=== PATIENT | male | born 1940 | race Caucasian/White ===

== ENCOUNTER 2018-06-03 04:41 | Inpatient (IN) | payer MEDICARE, OTHER ==
--- NOTE | 2018-06-03 05:02 | ED ---
SOB HPI - General Chief Complaint: Shortness of Breath Stated Complaint: SOB Time Seen by Provider: 06/03/18 04:50 Source: patient Mode of arrival: wheelchair Limitations: no limitations - History of Present Illness Initial Comments: This patient is a 78-year-old man who presents to be evaluated for shortness of breath and cough. The patient states that the symptoms started on Thursday, with some mild shortness of breath and nonproductive cough. The patient states that he was sent home from work that day because he was having hard time catching his breath. The patient states that over the past couple of days symptoms have been getting worse resulting in him coming in now. Patient denies any associated fever or chills, chest pain, palpitations, diaphoresis. The patient notes that the breathing seems to be worse when he is lying flat. The cough is now productive of some whitish sputum. Patient denies increase in leg swelling , he does have some swelling at the baseline. Patient denies change in urination. MD Complaint: shortness of breath, cough Onset/Timin -: days(s) Severity: severe Consistency: constant Improves With: oxygen, upright position Worsens With: lying flat Associated Symptoms: denies other symptoms - Related Data Home Oxygen Therapy: No Home Medications Medication Instructions Recorded Confirmed ALPRAZolam [Xanax] 0.25 mg PO HS 05/05/16 06/03/18 Atorvastatin [Lipitor] 10 mg PO HS 05/05/16 06/03/18 Finasteride [Proscar] 5 mg PO DAILY 05/05/16 06/03/18 Furosemide [Lasix] 40 mg PO DAILY 05/05/16 06/03/18 Insulin Glargine [Lantus] 30 unit SQ HS 05/05/16 06/03/18 Insuln Asp Prt/Insulin Aspart 50 unit SQ BID 05/05/16 06/03/18 [NovoLOG MIX 70-30 VIAL] Potassium Chloride [K-Tab ER] 10 meq PO DAILY 05/05/16 06/03/18 Sertraline [Zoloft] 100 mg PO HS PRN 05/05/16 06/03/18 cloNIDine HCL [Catapres] 0.1 mg PO BID 05/05/16 06/03/18 glyBURIDE/METFORMIN HCL 2 tab PO BID 06/06/16 07/05/18 [Glucovance 5-500 mg Tablet] Apixaban [Eliquis] 5 mg PO BID 06/03/18 06/03/18 Aspirin [Adult Low Dose Aspirin EC] 162 mg PO DAILY 06/03/18 06/03/18 Carvedilol 25 mg PO BID 06/03/18 06/03/18 DULoxetine HCL [Cymbalta] 30 mg PO DAILY 06/03/18 06/03/18 Isosorbide Mononitrate ER [Imdur] 30 mg PO DAILY 06/03/18 06/03/18 Loratadine 10 mg PO DAILY PRN 06/03/18 06/03/18 amLODIPine BESYLATE/BENAZEPRIL 1 cap PO BID 06/03/18 06/03/18 [Lotrel 5-20 mg Capsule] Allergies Allergy/AdvReac Type Severity Reaction Status Date / Time No Known Allergies Allergy Verified 06/03/18 04:46 Review of Systems ROS Statement: Those systems with pertinent positive or pertinent negative responses have been documented in the HPI. ROS Other: All systems not noted in ROS Statement are negative. Constitutional: Denies: fever, chills Respiratory: Reports: cough, dyspnea. Denies: hemoptysis Cardiovascular: Reports: orthopnea, edema (At baseline). Denies: chest pain, palpitations, syncope Gastrointestinal: Denies: abdominal pain, vomiting, diarrhea, melena, hematochezia Genitourinary: Denies: dysuria Musculoskeletal: Denies: back pain Skin: Denies: rash Neurological: Denies: headache, weakness, numbness Past Medical History Past Medical History: Diabetes Mellitus, Hyperlipidemia, Hypertension Additional Past Medical History / Comment(s): edema, kidney stones, wound lt calf History of Any Multi-Drug Resistant Organisms: None Reported Past Surgical History: Ear Surgery, Orthopedic Surgery Additional Past Surgical History / Comment(s): bilat tubes in his ears Past Anesthesia/Blood Transfusion Reactions: No Reported Reaction Past Psychological History: Anxiety Smoking Status: Never smoker Past Alcohol Use History: None Reported Past Drug Use History: None Reported - Past Family History Father Family Medical History: No Reported History Mother Family Medical History: No Reported History Additional Family Medical History / Comment(s): Mother was healthy and lived to be 87yrs old. General Exam Limitations: no limitations General appearance: alert, in distress, obese Head exam: Present: atraumatic, normocephalic Eye exam: Present: normal appearance Neck exam: Present: normal inspection Respiratory exam: Present: respiratory distress (Mild tachypnea), rales ( Bilateral bases). Absent: wheezes, rhonchi, stridor Cardiovascular Exam: Present: regular rate, normal rhythm, gallop. Absent: systolic murmur, diastolic murmur, rubs GI/Abdominal exam: Present: soft. Absent: distended, tenderness, guarding, rebound, rigid, mass Extremities exam: Present: normal capillary refill, pedal edema, other (There is pitting edema bilateral lower extremities, left greater than right. Patient states this is at his baseline. Chronic venous stasis changes.). Absent: calf tenderness Back exam: Present: normal inspection Neurological exam: Present: alert Skin exam: Present: warm, dry, intact, normal color, other (Venous stasis changes). Absent: rash Course Vital Signs 06/03/18 06/03/18 06/03/18 04:42 05:20 05:46 Temperature 98.4 F Pulse Rate 97 90 Respiratory 28 H 24 22 Rate Blood Pressure 219/97 184/84 O2 Sat by Pulse 93 L 97 Oximetry 06/03/18 06/03/18 06:33 07:36 Temperature Pulse Rate 90 91 Respiratory 24 24 Rate Blood Pressure 169/80 171/84 O2 Sat by Pulse 97 95 Oximetry Medical Decision Making - Lab Data Result diagrams: 06/03/18 05:12 06/03/18 05:12 Lab Results 06/03/18 06/03/18 06/03/18 Range/Units 05:12 05:12 05:12 WBC 11.2 H (3.8-10.6) k/uL RBC 4.48 (4.30-5.90) m/uL Hgb 13.0 (13.0-17.5) gm/dL Hct 39.8 (39.0-53.0) % MCV 88.9 (80.0-100.0) fL MCH 28.9 (25.0-35.0) pg MCHC 32.6 (31.0-37.0) g/dL RDW 16.4 H (11.5-15.5) % Plt Count 195 (150-450) k/uL Neutrophils % 82 % Lymphocytes % 6 % Monocytes % 7 % Eosinophils % 2 % Basophils % 1 % Neutrophils # 9.2 H (1.3-7.7) k/uL Lymphocytes # 0.7 L (1.0-4.8) k/uL Monocytes # 0.8 (0-1.0) k/uL Eosinophils # 0.3 (0-0.7) k/uL Basophils # 0.1 (0-0.2) k/uL Anisocytosis Slight PT 10.6 (9.0-12.0) sec INR 1.1 (<1.2) APTT 27.0 (22.0-30.0) sec D-Dimer 2.59 H (<0.60) mg/L FEU Sodium (137-145) mmol/L Potassium (3.5-5.1) mmol/L Chloride (98-107) mmol/L Carbon Dioxide (22-30) mmol/L Anion Gap mmol/L BUN (9-20) mg/dL Creatinine (0.66-1.25) mg/dL Est GFR (CKD-EPI)AfAm (>60 ml/min/1.73 sqM) Est GFR (CKD-EPI)NonAf (>60 ml/min/1.73 sqM) Glucose (74-99) mg/dL Calcium (8.4-10.2) mg/dL Magnesium (1.6-2.3) mg/dL Total Bilirubin (0.2-1.3) mg/dL AST (17-59) U/L ALT (21-72) U/L Alkaline Phosphatase (38-126) U/L Total Creatine Kinase 98 (55-170) U/L CK-MB (CK-2) 2.6 H* (0.0-2.4) ng/mL CK-MB (CK-2) Rel Index 2.7 Troponin I <0.012 (0.000-0.034) ng/mL NT-Pro-B Natriuret Pep pg/mL Total Protein (6.3-8.2) g/dL Albumin (3.5-5.0) g/dL 06/03/18 06/03/18 Range/Units 05:12 05:12 WBC (3.8-10.6) k/uL RBC (4.30-5.90) m/uL Hgb (13.0-17.5) gm/dL Hct (39.0-53.0) % MCV (80.0-100.0) fL MCH (25.0-35.0) pg MCHC (31.0-37.0) g/dL RDW (11.5-15.5) % Plt Count (150-450) k/uL Neutrophils % % Lymphocytes % % Monocytes % % Eosinophils % % Basophils % % Neutrophils # (1.3-7.7) k/uL Lymphocytes # (1.0-4.8) k/uL Monocytes # (0-1.0) k/uL Eosinophils # (0-0.7) k/uL Basophils # (0-0.2) k/uL Anisocytosis PT (9.0-12.0) sec INR (<1.2) APTT (22.0-30.0) sec D-Dimer (<0.60) mg/L FEU Sodium 142 (137-145) mmol/L Potassium 3.9 (3.5-5.1) mmol/L Chloride 102 (98-107) mmol/L Carbon Dioxide 30 (22-30) mmol/L Anion Gap 10 mmol/L BUN 26 H (9-20) mg/dL Creatinine 0.70 (0.66-1.25) mg/dL Est GFR (CKD-EPI)AfAm >90 (>60 ml/min/1.73 sqM) Est GFR (CKD-EPI)NonAf >90 (>60 ml/min/1.73 sqM) Glucose 196 H (74-99) mg/dL Calcium 8.6 (8.4-10.2) mg/dL Magnesium 1.7 (1.6-2.3) mg/dL Total Bilirubin 0.6 (0.2-1.3) mg/dL AST 20 (17-59) U/L ALT 31 (21-72) U/L Alkaline Phosphatase 97 (38-126) U/L Total Creatine Kinase (55-170) U/L CK-MB (CK-2) (0.0-2.4) ng/mL CK-MB (CK-2) Rel Index Troponin I (0.000-0.034) ng/mL NT-Pro-B Natriuret Pep 635 pg/mL Total Protein 6.4 (6.3-8.2) g/dL Albumin 3.4 L (3.5-5.0) g/dL - EKG Data -: EKG Interpreted by Me EKG shows normal: sinus rhythm, axis (Normal), intervals (Normal), QRS complexes (Normal), ST-T waves (Normal) Rate: normal (Rate 89 bpm) Interpretation: normal EKG Critical Care Time Critical Care Time: Yes (30 minutes) Disposition Clinical Impression: Dyspnea, Congestive heart failure, Elevated d-dimer Disposition: ADMITTED IP TO THIS [facility] Condition: Fair Is patient prescribed a controlled substance at d/c from ED?: No
[2018-06-03 05:26] LABS: Anisocytosis Slight; Basophils # (A) 0.1 k/uL (0-0.2); Basophils % (A) 1 %; Eosinophils # (A) 0.3 k/uL (0-0.7); Eosinophils % (A) 2 %; HCT 39.8 % (39.0-53.0); Lymphocytes # (A) 0.7 k/uL (1.0-4.8); Lymphocytes % (A) 6 %; MCH 28.9 pg (25.0-35.0); MCHC 32.6 g/dL (31.0-37.0); MCV 88.9 fL (80.0-100.0); Monocytes # (A) 0.8 k/uL (0-1.0); Monocytes % (A) 7 %; Neutrophils # (A) 9.2 k/uL (1.3-7.7); Neutrophils % (A) 82 %; Platelet Count 195 k/uL (150-450); RBC 4.48 m/uL (4.30-5.90); RDW 16.4 % (11.5-15.5); WBC 11.2 k/uL (3.8-10.6)
[2018-06-03 05:33] LABS: ALT 31 U/L (21-72); AST 20 U/L (17-59); Albumin 3.4 g/dL (3.5-5.0); Alkaline Phosphatase 97 U/L (38-126); Anion Gap 10 mmol/L; Blood Urea Nitrogen 26 mg/dL (9-20); Calcium 8.6 mg/dL (8.4-10.2); Carbon Dioxide 30 mmol/L (22-30); Chloride 102 mmol/L (98-107); Glucose 196 mg/dL (74-99); Magnesium 1.7 mg/dL (1.6-2.3); Potassium 3.9 mmol/L (3.5-5.1); Sodium 142 mmol/L (137-145); Total Bilirubin 0.6 mg/dL (0.2-1.3); Total Protein 6.4 g/dL (6.3-8.2)
[2018-06-03 05:44] LABS: Creatine Kinase 98 U/L (55-170)
[2018-06-03 05:46] LABS: INR 1.1 (<1.2); Prothrombin Time 10.6 sec (9.0-12.0)
[2018-06-03 05:49] LABS: D-Dimer 2.59 mg/L FEU (<0.60)
[2018-06-03 05:57] LABS: Troponin I <0.012 ng/mL (0.000-0.034)
--- NOTE | 2018-06-03 05:58 | XR ---
EXAMINATION TYPE: XR chest 1V portable DATE OF EXAM: 06/03/2018 COMPARISON: 05/05/2016 HISTORY: Weakness and dyspnea TECHNIQUE: Single frontal view of the chest is obtained. FINDINGS: Heart is enlarged. There is pulmonary vascular congestion. There is poor inspiration and e levated right diaphragm. There are chest leads. IMPRESSION: Congestive heart failure. Chronic elevated right diaphragm. Heart failure. New compared to old exam.
[2018-06-03 06:04] LABS: Creatine Kinase MB 2.6 ng/mL (0.0-2.4)
[2018-06-03] MEDS ORDERED: FUROSEMIDE 10 MG/ML 4 ML VIAL IV STA (06:11)
[2018-06-03] MEDS ORDERED: NITROGLYCERIN OINT 1 INCH/GM PACKET TOPICAL STA (06:11)
[2018-06-03] MEDS ORDERED: NITROGLYCERIN SL TABS 0.4 MG TAB SUBLINGUAL STA (06:11)
[2018-06-03] MEDS ORDERED: ENOXAPARIN 150 MG/ML SYRINGE SQ STA (07:13)
[2018-06-03] MEDS ORDERED: LORATADINE 10 MG TAB PO PRN (09:26)
[2018-06-03] MEDS ORDERED: cloNIDine HCL 0.1 MG TAB PO SCH (09:30)
--- NOTE | 2018-06-03 10:30 | ECHOF ---
Referral Reason:CHF MEASUREMENTS -------- HEIGHT: 182.9 cm WEIGHT: 147.4 kg BP: IVSd: 1.8 cm (0.6 - 1.1) LVIDd: 3.5 cm (3.9 - 5.3) LVPWd: 1.8 cm (0.6 - 1.1) IVSs: 2.2 cm LVIDs: 2.2 cm LVPWs: 1.6 cm LAESV Index (A-L): 41.36 ml/m Ao Diam: 3.8 cm (2.0 - 3.7) AV Cusp: 2.6 cm (1.5 - 2.6) LA Diam: 5.2 cm (2.7 - 3.8) MV EXCURSION: 10.716 mm (> 18.000) MV EF SLOPE: 39 mm/s (70 - 150) EPSS: 0.7 cm MV E Santiago: 0.85 m/s MV DecT: 155 ms MV A Santiago: 1.10 m/s MV E/A Ratio: 0.78 RAP: 5.00 mmHg RVSP: 18.11 mmHg FINDINGS -------- Sinus rhythm. This was a technically difficult study with suboptimal views. There is severe concentric left ventricular hypertrophy. Overall left ventricular systolic function is low-normal with, an EF between 50 - 55 %. The right ventricle is normal in size and function. LA is moderately dilated 34-39 ml/m2 The right atrium is normal in size. Lumason used The aortic valve is trileaflet and appears structurally normal. The mitral valve leaflets are mildly thickened. Mild mitral annular calcification present. Mild m itral regurgitation is present. Mild tricuspid regurgitation present. The right ventricular systolic pressure, as measured by Doppl er, is 18.11mmHg. Pulmonic valve appears structurally normal. The aortic root, ascending aorta and aortic arch are normal. The pericardium is normal. CONCLUSIONS -------- 1. Sinus rhythm. 2. This was a technically difficult study with suboptimal views. 3. There is severe concentric left ventricular hypertrophy. 4. Overall left ventricular systolic function is low-normal with, an EF between 50 - 55 %. 5. The right ventricle is normal in size and function. 6. LA is moderately dilated 34-39 ml/m2 7. The right atrium is normal in size. 8. Lumason used 9. The aortic valve is trileaflet and appears structurally normal. 10. The mitral valve leaflets are mildly thickened. 11. Mild mitral annular calcification present. 12. Mild mitral regurgitation is present. 13. Mild tricuspid regurgitation present. 14. The right ventricular systolic pressure, as measured by Doppler, is 18.11mmHg. 15. Pulmonic valve appears structurally normal. 16. The aortic root, ascending aorta and aortic arch are normal. 17. The pericardium is normal. SELF PAY SPECIALIST: Ruba Murrell RDCS
--- NOTE | 2018-06-03 11:05 | CONS ---
SUDHEER Sumner is a 78-year-old gentleman with history of right-sided heart failure, diabetes, hypertension, and atrial fibrillation, who was admitted to hospital with shortness of breath and worsening leg edema. His leg edema is mild to moderate and has been getting gradually worse. He also complains of intermittent episodes of shortness of breath. He also has anxiety attacks. At the time of my evaluation this morning patient appears comfortable at rest. He has chronic right-sided leg edema and shortness of breath has improved. The patient had been treated with intravenous Lasix with improvement in his symptoms. First set of troponin is negative. BNP is 635. PAST MEDICAL HISTORY: Significant for atrial fibrillation, hypertension, diabetes. MEDICATIONS: Medications include Imdur 30 q. daily, aspirin, Zoloft, insulin, Lipitor 10 q. daily, Catapres 0.1 b.i.d., Lotrel, carvedilol, Glucovance, K-Dur, Lasix, Proscar, Xanax, Cymbalta, and Eliquis. ALLERGIES: There are no known drug allergies. FAMILY HISTORY: Negative for premature coronary artery disease. SOCIAL HISTORY: Negative for current smoking, EtOH abuse, or drug abuse. REVIEW OF SYSTEMS: HEENT is unremarkable. CARDIAC: As described above. RESPIRATORY: As described above. GI: Negative. GENITOURINARY: Negative. ALLERGY/IMMUNOLOGY: Negative. SKIN: Negative. MUSCULOSKELETAL: Significant for arthritis. PSYCHOSOCIAL: Negative. ENDOCRINE: Negative. HEMATOLOGICAL: Negative. DERM: Negative. CONSTITUTIONAL: Negative. ONCOLOGICAL: Negative. Rest of the system review is not relevant. PHYSICAL EXAMINATION: On exam, patient is comfortable at rest. Heart rate is 90 beats per minute. Blood pressure is 171/84. Respiratory rate is 18. Chest exam reveals diminished air entry at the bases. Heart exam reveals first and second heart sounds. No gallop. Abdomen is soft. Examination of the extremities reveals bilateral pitting edema and chronic changes of hyperpigmentation. EKG shows normal sinus rhythm. ASSESSMENT: 1. Acute exacerbation of chronic congestive heart failure, probably diastolic. 2. Uncontrolled hypertension. 3. History of atrial fibrillation. 4. Diabetes. PLAN: I will continue the IV Lasix. Obtain a 2D echo. Increase the dose of Catapres to 0.2 t.i.d. Continue the Norvasc, Coreg, Zestril that he is currently on. MMODL / IJN: [id number] /
[2018-06-03] MEDS: CARVEDILOL 12.5 MG TAB PO SCH ×2 (11:13→18:00)
[2018-06-03] MEDS: glipiZIDE 5 MG TAB PO SCH ×2 (11:13→18:00)
[2018-06-03] MEDS: amLODIPine 5 MG TAB PO SCH ×2 (11:13→21:40)
[2018-06-03] MEDS: ASPIRIN 81 MG PO SCH (11:14)
[2018-06-03] MEDS: POTASSIUM CHLORIDE ER 10 MEQ TAB.ER.PRT PO SCH (11:19)
[2018-06-03] MEDS: ISOSORBIDE MONONITRATE ER 30 MG TAB.ER.24H PO SCH (11:20)
[2018-06-03] MEDS: FINASTERIDE 5 MG TAB PO SCH (11:20)
[2018-06-03] MEDS: APIXABAN 5 MG TAB PO SCH ×2 (11:20→21:40)
[2018-06-03] MEDS: LISINOPRIL 20 MG TAB PO SCH ×2 (11:20→21:40)
[2018-06-03] MEDS: DULoxetine HCL 30 MG CAPSULE.DR PO SCH (11:20)
[2018-06-03] MEDS: NYSTATIN 100,000 UNIT/GM OINT 30 GM TUBE TOPICAL SCH ×2 (11:28→21:41)
[2018-06-03] MEDS: TRIAMCINOLONE ACET 0.1% OINTMENT 15 GM TUBE TOPICAL SCH ×2 (11:28→21:37)
[2018-06-03] MEDS: INSULN ASP PRT/INSULIN ASPART 100 UNIT/ML 10 ML VIAL SQ SCH ×2 (11:29→21:51)
[2018-06-03 11:46] LABS: Glucose,Whole Blood 136 mg/dL (75-99)
[2018-06-03 12:09] LABS: Creatine Kinase MB 2.2 ng/mL (0.0-2.4); Troponin I <0.012 ng/mL (0.000-0.034)
--- NOTE | 2018-06-03 12:33 | P.HPIM ---
History of Present Illness H&P Date: 06/03/18 Chief Complaint: Difficulty breathing, edema, cough This is a 78-year-old male patient of Dr. Colon with past medical history of chronic heart failure, diabetes mellitus type 2, paroxysmal atrial fibrillation, TIA, hypertension, hyperlipidemia, benign prostatic hypertrophy, lower extremity edema, history of venous stasis ulcer left calf. Patient's and daughter are at the bedside and give most of the history. 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 His states that he got there and he was sweating profusely and shaking and was somewhat incoherent. A couple hours later she called their daughter as he was still not feeling well and his blood sugar was 62 but by this time he was speaking in full sentences. They did call 911 but the patient did not want any treatment. His lower extremity edema was a little bit worse. He complains of cough, sore throat, rodas sputum production. No fever or chills. He denies any pain with breathing. No choking on his food. He does state is unable to lay flat. He has had increased panic attacks over the last couple days. At 3 in the morning he woke up his that he couldn't breathe at that time he did want to come into the hospital for evaluation. Patient is also stating that he is hearing voices and thought it was related to eliquis which he started in February for atrial fibrillation. Dr. 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 Patient came in to [facility] emergency center for evaluation. His blood pressure was 219/97, afebrile, respiratory rate 28. White count was 11.2, hemoglobin 13.0. BUN 26 and creatinine 0.7. Blood sugar was 196. ProBNP 635. D-dimer was 2.59 and patient went for CAT scan but he was unable to lay flat for this. Initial troponin 0.012. Chest x-ray shows congestive heart failure. Chronic elevated right diaphragm. This is new compared to old exam. EKG was in normal sinus rhythm with no acute ST changes. Patient was started on IV Lasix 40 mg, Nitro-Bid nitro sublingual, Lovenox and admitted to the selective care unit. Cardiology consult requested and serial troponins. VQ scan was ordered. Echocardiogram reveals severe concentric left ventricular hypertrophy, EF 50-55% , LA moderately dilated 34-39, mild mitral regurgitation, mild tricuspid regurgitation. Review of Systems All systems: negative Constitutional: Reports fatigue, Reports lethargy, Reports weakness, Denies chills, Denies fever Eyes: denies blurred vision, denies pain Ears, nose, mouth and throat: Reports sore throat, Denies dysphagia, Denies hoarseness Cardiovascular: Reports decreased exercise tolerance, Reports dyspnea on exertion, Reports leg edema, Reports orthopnea, Reports shortness of breath, Denies chest pain Respiratory: Reports cough, Reports cough with sputum, Reports dyspnea, Denies excessive sputum, Denies hemoptysis Gastrointestinal: Denies abdominal pain, Denies diarrhea, Denies nausea, Denies vomiting Genitourinary: Denies dysuria, Denies urinary retention Musculoskeletal: Denies myalgias Integumentary: Reports color changes, Reports darkening of skin, Denies pruritus , Denies rash Neurological: Reports change in mentation, Reports confusion, Denies numbness, Denies weakness Psychiatric: Denies anxiety, Denies depression Endocrine: Reports fatigue, Denies weight change Past Medical History Past Medical History: Atrial Fibrillation, Heart Failure, CVA/TIA, Diabetes Mellitus, Hyperlipidemia, Hypertension, Prostate Disorder, Renal Disease Additional Past Medical History / Comment(s): IDDM type II, chronic CHF, bilateral lower leg edema, past medical record indicates COPD but pt/daughter deny, past venous stasis ulcer L calf (treated in [facility]), occasional neuropathy bilateral feet, 2016 TIA, nephrolithiasis with surgery, BPH, Past R hand finger fractures. History of Any Multi-Drug Resistant Organisms: None Reported Past Surgical History: Ear Surgery, Orthopedic Surgery, Tonsillectomy Additional Past Surgical History / Comment(s): Lithotripsy, R hand/finger surgery for fractures, L shoulder separation with surgical repair, cleft palate surgery, bilat tubes in his ears Past Anesthesia/Blood Transfusion Reactions: No Reported Reaction Smoking Status: Never smoker - Past Family History Father Family Medical History: Myocardial Infarction ([place]) Additional Family Medical History / Comment(s): Father was a heavy smoker. He of a [place] at the age of 42yrs. Mother Family Medical History: No Reported History Additional Family Medical History / Comment(s): Mother was healthy and lived to be 87yrs old. Medications and Allergies Home Medications Medication Instructions Recorded Confirmed Type ALPRAZolam [Xanax] 0.25 mg PO HS 05/05/16 06/03/18 History Atorvastatin [Lipitor] 10 mg PO HS 05/05/16 06/03/18 History Finasteride [Proscar] 5 mg PO DAILY 05/05/16 06/03/18 History Furosemide [Lasix] 40 mg PO DAILY 05/05/16 06/03/18 History Insulin Glargine [Lantus] 30 unit SQ HS 05/05/16 06/03/18 History Insuln Asp Prt/Insulin Aspart 50 unit SQ BID 05/05/16 06/03/18 History [NovoLOG MIX 70-30 VIAL] Potassium Chloride [K-Tab ER] 10 meq PO DAILY 05/05/16 06/03/18 History Sertraline [Zoloft] 100 mg PO HS PRN 05/05/16 06/03/18 History cloNIDine HCL [Catapres] 0.1 mg PO BID 05/05/16 06/03/18 History glyBURIDE/METFORMIN HCL 2 tab PO BID 05/05/16 06/03/18 History [Glucovance 5-500 mg Tablet] Apixaban [Eliquis] 5 mg PO BID 06/03/18 06/03/18 History Aspirin [Adult Low Dose Aspirin EC] 162 mg PO DAILY 06/03/18 06/03/18 History Carvedilol 25 mg PO BID 06/03/18 06/03/18 History DULoxetine HCL [Cymbalta] 30 mg PO DAILY 06/03/18 06/03/18 History Isosorbide Mononitrate ER [Imdur] 30 mg PO DAILY 06/03/18 06/03/18 History Loratadine 10 mg PO DAILY PRN 06/03/18 06/03/18 History amLODIPine BESYLATE/BENAZEPRIL 1 cap PO BID 06/03/18 06/03/18 History [Lotrel 5-20 mg Capsule] Allergies Allergy/AdvReac Type Severity Reaction Status Date / Time No Known Allergies Allergy Verified 06/03/18 04:46 Physical Exam Vitals: Vital Signs Temp Pulse Resp BP Pulse Ox 06/03/18 07:36 91 24 171/84 95 06/03/18 06:33 90 24 169/80 97 06/03/18 05:46 90 22 184/84 97 06/03/18 05:20 24 06/03/18 04:42 98.4 F 97 28 H 219/97 93 L Intake and Output 06/02/18 06/03/18 06/03/18 22:59 06:59 14:59 Other: Weight 147.418 kg - Constitutional General appearance: cooperative, disheveled, morbidly obese - EENT Eyes: Reports abnormal pupil, Reports PERRLA, Reports poor dentition, Reports scleral icterus, Reports normal apperance, Denies anicteric sclerae, Denies disc margins sharp, Denies edentulous, Denies EOMI, Denies fundus normal, Denies photophobia, Denies dentition normal, Denies ptosis ENT: Reports hard of hearing, Reports normal oropharynx, Reports pharyngeal erythema Ears: bilateral: normal, bulging - Neck Neck: Reports normal ROM, Denies lymphadenopathy, Denies other, Denies rigidity , Denies stridor, Denies thyromegaly Carotids: bilateral: upstroke normal, upstroke delayed Thyroid: bilateral: normal size - Respiratory Respiratory: bilateral: CTA, diminished - Cardiovascular Rhythm: regular Heart sounds: normal: S1, S2 Abnormal Heart Sounds: Reports systolic murmur, Reports S3 Gallop - Gastrointestinal General gastrointestinal: Reports normal bowel sounds, nontender, morbidly obese , Denies absent bowel sounds, Denies distended, Denies hyperactive bowel sounds , Denies rigid, Denies splenomegaly, Denies umbilical hernia, Denies ventral hernia - Integumentary Integumentary: Reports dark chronic color changes to bilat lower legs, Denies decreased turgor, Denies jaundiced, Denies normal turgor, Denies ulcer - Neurologic Neurologic: CNII-XII intact - Musculoskeletal Musculoskeletal: Reports generalized weakness, Reports strength equal bilaterally, Denies right sided weakness, Denies left sided weakness - Psychiatric Psychiatric: Reports A&O x's 3, Reports appropriate affect Results CBC & Chem 7: 06/03/18 05:12 06/03/18 05:12 Labs: Abnormal Lab Results - Last 24 Hours (Table) 06/03/18 06/03/18 06/03/18 Range/Units 05:12 05:12 05:12 WBC 11.2 H (3.8-10.6) k/uL RDW 16.4 H (11.5-15.5) % Neutrophils # 9.2 H (1.3-7.7) k/uL Lymphocytes # 0.7 L (1.0-4.8) k/uL D-Dimer 2.59 H (<0.60) mg/L FEU BUN (9-20) mg/dL Glucose (74-99) mg/dL POC Glucose (mg/dL) (75-99) mg/dL CK-MB (CK-2) 2.6 H* (0.0-2.4) ng/mL Albumin (3.5-5.0) g/dL 06/03/18 06/03/18 Range/Units 05:12 11:28 WBC (3.8-10.6) k/uL RDW (11.5-15.5) % Neutrophils # (1.3-7.7) k/uL Lymphocytes # (1.0-4.8) k/uL D-Dimer (<0.60) mg/L FEU BUN 26 H (9-20) mg/dL Glucose 196 H (74-99) mg/dL POC Glucose (mg/dL) 136 H (75-99) mg/dL CK-MB (CK-2) (0.0-2.4) ng/mL Albumin 3.4 L (3.5-5.0) g/dL Thrombosis Risk Factor Assmnt - DVT/VTE Prophylaxis DVT/VTE Prophylaxis: Pharmacologic Prophylaxis ordered - Choose All That Apply Any of the Below Risk Factors Present?: Yes Each Factor Represents 1 point: Abnormal pulmonary function (COPD), Heart failure (<1month), Obesity (BMI >25), Swollen legs (current) Other Risk Factors: Yes Each Risk Factor Represents 3 Points: Age 75 years or older Other congenital or acquired thrombophilia - If yes, enter type in comment: No Thrombosis Risk Factor Assessment Total Risk Factor Score: 7 Thrombosis Risk Factor Assessment Level: High Risk Assessment and Plan Plan: 1. Acute on chronic diastolic heart failure. Echocardiogram as above. Consult with cardiology appreciated. Continue Lasix currently at 40 mg IV every 8 hours, Coreg 25 mg twice daily, daily weights, I&O. VQ scan pending to rule out PE. Patient is continued on eliquis. 2. Diabetes mellitus type 2, uncontrolled with hyperglycemia. Hemoglobin A1 C to be checked. Continue glipizide 5 mg twice daily, NovoLog scale before meals and at bedtime, NovoLog 70 3050 units twice daily, Levemir 30 units at bedtime. Metformin is on hold. 3. Hypertensive cardiovascular disease. Continue Norvasc 5 mg twice daily, Coreg 25 mg twice daily, clonidine 0.2 mg twice daily, Imdur 30 mg daily lisinopril 20 mg twice daily. 4. Paroxysmal atrial fibrillation. Continue eliquis 5 mg twice daily, Coreg 25 mg twice daily. 5. Chronic venous stasis of the lower extremities with yeast-type presentation. Patient will be placed on nystatin, triamcinolone cream twice daily. 6. Hyperlipidemia. Continue Lipitor 10 mg at bedtime. 7. Benign prostatic hypertrophy. Continue finasteride 5 mg daily. Check post void residual. 8. Generalized anxiety disorder and panic attacks worsening since Thursday. Continue Xanax 0.25 mg at bedtime and Zoloft 100 mg at bedtime, Cymbalta 30 mg daily. 9. DVT prophylaxis. Continue eliquis. 10. GI prophylaxis. Pepcid. CODE STATUS full code Patient will be admitted to the hospital for a minimum of 2 night stay. Discharge plan: Most likely return home Impression and plan of care have been directed as dictated by the signing physician. Farheen Knapp nurse practitioner acting as scribe for signing physician.
[2018-06-03] MEDS: INSULIN ASPART 100 UNIT/ML 1 ML 10 ML VIAL SQ SCH ×3 (12:38→21:51)
[2018-06-03 15:03] VITALS: BMI 45.3
[2018-06-03] MEDS ORDERED: ALPRAZolam 0.5 MG TAB PO PRN (15:52)
[2018-06-03 16:56] LABS: Glucose,Whole Blood 222 mg/dL (75-99)
[2018-06-03] MEDS: NITROGLYCERIN OINT 1 INCH/GM PACKET TOPICAL SCH ×3 (18:00→21:41)
[2018-06-03] MEDS: FUROSEMIDE 10 MG/ML 4 ML VIAL IV SCH ×2 (18:00→23:35)
[2018-06-03 18:14] LABS: Creatine Kinase MB 1.9 ng/mL (0.0-2.4); Troponin I <0.012 ng/mL (0.000-0.034)
[2018-06-03 18:52] LABS: Hemoglobin A1C 6.4 % (4.0-6.0)
[2018-06-03] MEDS ORDERED: INSULIN DETEMIR 100 UNIT/ML 10 ML VIAL SQ SCH (21:00)
[2018-06-03 21:01] LABS: Glucose,Whole Blood 213 mg/dL (75-99)
[2018-06-03] MEDS: ALPRAZolam 0.25 MG TAB PO SCH (21:36)
[2018-06-03] MEDS: cloNIDine HCL 0.2 MG TAB PO SCH (21:40)
[2018-06-03] MEDS: ATORVASTATIN 10 MG TAB PO SCH (21:41)
[2018-06-03] MEDS: SERTRALINE 100 MG TAB PO SCH (21:50)
[2018-06-04 03:17] LABS: Glucose,Whole Blood 48 mg/dL (75-99)
[2018-06-04 03:33] LABS: Glucose,Whole Blood 70 mg/dL (75-99)
[2018-06-04 05:54] LABS: Glucose,Whole Blood 140 mg/dL (75-99)
[2018-06-04] MEDS: INSULIN ASPART 100 UNIT/ML 1 ML 10 ML VIAL SQ SCH ×4 (06:20→21:09)
[2018-06-04] MEDS: glipiZIDE 5 MG TAB PO SCH ×2 (06:49→18:09)
[2018-06-04] MEDS: CARVEDILOL 12.5 MG TAB PO SCH ×2 (06:49→18:10)
--- NOTE | 2018-06-04 07:08 | CT ---
EXAMINATION TYPE: CT brain wo con DATE OF EXAM: 06/04/2018 COMPARISON: 05/05/2016 HISTORY: Confusion CT DLP: 835.8 mGycm Automated exposure control for dose reduction was used. FINDINGS: There is cerebral cortical atrophy. There is no mass effect nor midline shift. There is no sign of in tracranial hemorrhage. The calvarium is intact. There is some mucosal thickening in the ethmoid sinus es. There is mild patchy hypodensity in the periventricular white matter. IMPRESSION: CEREBRAL ATROPHY AND CHRONIC SMALL VESSEL ISCHEMIA. NO ACUTE INTRACRANIAL ABNORMALITY. NO SIGNIFICANT CHANGE COMPARED TO OLD EXAM.
[2018-06-04] MEDS: FUROSEMIDE 10 MG/ML 4 ML VIAL IV SCH ×3 (08:40→23:06)
[2018-06-04] MEDS: ASPIRIN 81 MG PO SCH (08:42)
[2018-06-04] MEDS: amLODIPine 5 MG TAB PO SCH ×2 (08:42→19:53)
[2018-06-04] MEDS: APIXABAN 5 MG TAB PO SCH ×2 (08:42→19:53)
[2018-06-04] MEDS: cloNIDine HCL 0.2 MG TAB PO SCH ×2 (08:43→19:53)
[2018-06-04] MEDS: DULoxetine HCL 30 MG CAPSULE.DR PO SCH (08:43)
[2018-06-04] MEDS: FINASTERIDE 5 MG TAB PO SCH (08:44)
[2018-06-04] MEDS: LISINOPRIL 20 MG TAB PO SCH ×2 (08:45→19:53)
[2018-06-04] MEDS: ISOSORBIDE MONONITRATE ER 30 MG TAB.ER.24H PO SCH (08:45)
[2018-06-04] MEDS: NITROGLYCERIN OINT 1 INCH/GM PACKET TOPICAL SCH ×4 (08:46→21:13)
[2018-06-04] MEDS: NYSTATIN 100,000 UNIT/GM OINT 30 GM TUBE TOPICAL SCH ×3 (08:46→21:19)
[2018-06-04] MEDS: POTASSIUM CHLORIDE ER 10 MEQ TAB.ER.PRT PO SCH (08:47)
[2018-06-04] MEDS: TRIAMCINOLONE ACET 0.1% OINTMENT 15 GM TUBE TOPICAL SCH ×3 (08:47→21:20)
[2018-06-04] MEDS: FAMOTIDINE 20 MG TAB PO SCH (08:53)
[2018-06-04] MEDS: INSULN ASP PRT/INSULIN ASPART 100 UNIT/ML 10 ML VIAL SQ SCH ×2 (08:53→21:09)
--- NOTE | 2018-06-04 10:05 | P.PN ---
Subjective Progress Note Date: 06/04/18 This is a 78-year-old male patient of Dr. Colon with past medical history of chronic heart failure, diabetes mellitus type 2, paroxysmal atrial fibrillation, TIA, hypertension, hyperlipidemia, benign prostatic hypertrophy, lower extremity edema, history of venous stasis ulcer left calf. Patient's and daughter are at the bedside and give most of the history. 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 His states that he got there and he was sweating profusely and shaking and was somewhat incoherent. A couple hours later she called their daughter as he was still not feeling well and his blood sugar was 62 but by this time he was speaking in full sentences. They did call 911 but the patient did not want any treatment. His lower extremity edema was a little bit worse. He complains of cough, sore throat, rodas sputum production. No fever or chills. He denies any pain with breathing. No choking on his food. He does state is unable to lay flat. He has had increased panic attacks over the last couple days. At 3 in the morning he woke up his that he couldn't breathe at that time he did want to come into the hospital for evaluation. Patient is also stating that he is hearing voices and thought it was related to eliquis which he started in February for atrial fibrillation. Dr. 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 Patient came in to [facility] emergency center for evaluation. His blood pressure was 219/97, afebrile, respiratory rate 28. White count was 11.2, hemoglobin 13.0. BUN 26 and creatinine 0.7. Blood sugar was 196. ProBNP 635. D-dimer was 2.59 and patient went for CAT scan but he was unable to lay flat for this. Initial troponin 0.012. Chest x-ray shows congestive heart failure. Chronic elevated right diaphragm. This is new compared to old exam. EKG was in normal sinus rhythm with no acute ST changes. Patient was started on IV Lasix 40 mg, Nitro-Bid nitro sublingual, Lovenox and admitted to the selective care unit. Cardiology consult requested and serial troponins. VQ scan was ordered. Echocardiogram reveals severe concentric left ventricular hypertrophy, EF 50-55% , LA moderately dilated 34-39, mild mitral regurgitation, mild tricuspid regurgitation. 06/04: Patient has been seen by collar starcher and Catapres increased. Last evening , patient became quite confused and CAT scan of the brain was ordered that showed cerebral atrophy and chronic small vessel ischemic change with no acute abnormality. At 3 in the morning he had a low blood sugar 48 and Levemir was discontinued completely and also has 70/30 insulin was decreased to 45 mg twice daily. Hemoglobin A1c came back at 6.4. Patient has had episodes of hypoglycemia at home. Patient had incontinence and continuous voiding yesterday for which a Fierro catheter was placed. During his episode of confusion he did pull this Fierro out which has been replaced. Patient initially refused nystatin/triamcinolone cream to his legs but after discussion this morning he will use. Pulse ox is 97% on room air, respirations 20-24. Breathing status seems to be improving. Because patient was able to lay flat for the CAT scan of the brain, we will ask for VQ scan to be done today. Urinalysis and urine culture ordered. Anticipate discharge probably on Thursday. Objective - Vital Signs Vital signs: Vital Signs Temp 97.6 F 06/04/18 03:42 Pulse 72 06/04/18 06:45 Resp 20 06/04/18 06:45 BP 160/78 06/04/18 06:45 Pulse Ox 97 06/04/18 06:45 Intake & Output 06/03/18 06/04/18 06/04/18 18:59 06:59 18:59 Intake Total 240 Output Total 3525 Balance 240 -3525 Weight 147.418 kg 147.6 kg Intake: Oral 240 Output: Urine 3525 - Exam - Constitutional General appearance: cooperative, disheveled, morbidly obese - EENT Eyes: Reports abnormal pupil, Reports PERRLA, Reports poor dentition, Reports scleral icterus, Reports normal apperance, Denies anicteric sclerae, Denies disc margins sharp, Denies edentulous, Denies EOMI, Denies fundus normal, Denies photophobia, Denies dentition normal, Denies ptosis ENT: Reports hard of hearing, Reports normal oropharynx, Reports pharyngeal erythema Ears: bilateral: normal, bulging - Neck Neck: Reports normal ROM, Denies lymphadenopathy, Denies other, Denies rigidity , Denies stridor, Denies thyromegaly Carotids: bilateral: upstroke normal, upstroke delayed Thyroid: bilateral: normal size - Respiratory Respiratory: bilateral: CTA, diminished - Cardiovascular Rhythm: regular Heart sounds: normal: S1, S2 Abnormal Heart Sounds: Reports systolic murmur, Reports S3 Gallop - Gastrointestinal General gastrointestinal: Reports normal bowel sounds, nontender, morbidly obese , Denies absent bowel sounds, Denies distended, Denies hyperactive bowel sounds , Denies rigid, Denies splenomegaly, Denies umbilical hernia, Denies ventral hernia - Integumentary Integumentary: Reports dark chronic color changes to bilat lower legs, Denies decreased turgor, Denies jaundiced, Denies normal turgor, Denies ulcer - Neurologic Neurologic: CNII-XII intact - Musculoskeletal Musculoskeletal: Reports generalized weakness, Reports strength equal bilaterally, Denies right sided weakness, Denies left sided weakness - Psychiatric Psychiatric: Reports A&O x's 3, Reports appropriate affect - Labs CBC & Chem 7: 06/03/18 05:12 06/03/18 05:12 Labs: Abnormal Lab Results - Last 24 Hours (Table) 06/03/18 06/03/18 06/03/18 Range/Units 11:15 11:28 16:48 POC Glucose (mg/dL) 136 H 222 H (75-99) mg/dL Hemoglobin A1c 6.4 H (4.0-6.0) % 06/03/18 06/04/18 06/04/18 Range/Units 20:58 03:15 03:32 POC Glucose (mg/dL) 213 H 48 L 70 L (75-99) mg/dL Hemoglobin A1c (4.0-6.0) % 06/04/18 Range/Units 05:52 POC Glucose (mg/dL) 140 H (75-99) mg/dL Hemoglobin A1c (4.0-6.0) % Assessment and Plan Plan: 1. Acute on chronic diastolic heart failure. Echocardiogram as above. Consult with cardiology appreciated. Continue Lasix currently at 40 mg IV every 8 hours, Coreg 25 mg twice daily, daily weights, I&O. VQ scan pending to rule out PE. Patient is continued on eliquis. 2. Diabetes mellitus type 2, uncontrolled with hyperglycemia. Hemoglobin A1 C 6.4. Continue glipizide 5 mg twice daily, NovoLog scale before meals and at bedtime, NovoLog 70/30 decreased to 45 units twice daily, Levemir discontinued. Metformin is on hold. 3. Hypertensive cardiovascular disease. Continue Norvasc 5 mg twice daily, Coreg 25 mg twice daily, clonidine 0.2 mg twice daily, Imdur 30 mg daily lisinopril 20 mg twice daily. 4. Paroxysmal atrial fibrillation. Continue eliquis 5 mg twice daily, Coreg 25 mg twice daily. 5. Chronic venous stasis of the lower extremities with yeast-type presentation. Patient will be placed on nystatin, triamcinolone cream twice daily. 6. Hyperlipidemia. Continue Lipitor 10 mg at bedtime. 7. Benign prostatic hypertrophy. Continue finasteride 5 mg daily. Check post void residual. 8. Generalized anxiety disorder and panic attacks worsening since Thursday. Continue Xanax 0.25 mg at bedtime and Zoloft 100 mg at bedtime, Cymbalta 30 mg daily. 9. DVT prophylaxis. Continue eliquis. 10. GI prophylaxis. Pepcid. CODE STATUS full code Discharge plan: home on Thursday Impression and plan of care have been directed as dictated by the signing physician. Farheen Knapp nurse practitioner acting as scribe for signing physician.
[2018-06-04 11:38] LABS: Glucose,Whole Blood 150 mg/dL (75-99)
--- NOTE | 2018-06-04 11:55 | P.PN ---
Subjective Progress Note Date: 06/04/18 Principal diagnosis: CHF This is a 78-year-old gentleman with history of right-sided congestive heart failure, diabetes, hypertension, chronic atrial fibrillation, admitted to the hospital with symptoms of progressively worsening shortness of breath with worsening leg edema. Patient was seen in consultation yesterday by Dr. Cervantes and initiated on IV Lasix. Patient was mildly confused through the night, he was pulling on his Fierro catheter, this morning it is noted that he has some hematuria and his catheter. It is clearing up significantly. Patient also apparently slipped on some water on the floor and felt some discomfort in his groin area but did not fall completely down to the ground. At the time of my examination this morning his and daughter are at bedside, is alert and oriented 2. Blood pressure 126/56 with a heart rate in the 60s, 96% on room air. Lab data from today is still pending. Urine output through the night last night over 3500. Echocardiogram with Doppler study was performed which revealed an ejection fraction of 50-55%. Patient continues to be on IV Lasix 40 mg every 8 hourly. Objective - Vital Signs Vital signs: Vital Signs Temp 97.8 F 06/04/18 08:00 Pulse 65 06/04/18 08:00 Resp 16 06/04/18 08:00 BP 126/56 06/04/18 08:00 Pulse Ox 96 06/04/18 08:00 Intake & Output 06/03/18 06/04/18 06/04/18 18:59 06:59 18:59 Intake Total 240 180 Output Total 3525 Balance 240 -3525 180 Weight 147.418 kg 147.6 kg Intake: Oral 240 180 Output: Urine 3525 - Exam PHYSICAL EXAMINATION: GENERAL: 78-year-old gentleman in no acute distress at the time of my examination HEENT: Head is atraumatic, normocephalic. Pupils equal, round. Sclera anicteric. Conjunctiva are clear. Mucous membranes of the mouth are moist. Neck is supple. There is no elevated jugular venous pressure.] No carotid bruit is heard. HEART EXAMINATION: Heart S1, S2 normal. No murmur or gallop heard. CHEST EXAMINATION: His reveal diminished air entry to bilateral bases with rales bilaterally to the bases. ABDOMEN: Soft, obese, nontender. Bowel sounds are heard. No organomegaly noted. EXTREMITIES: 1+ peripheral pulses with 2+ evidence of peripheral edema and evidence of chronic venous stasis . NEUROLOGIC patient is awake, alert and oriented OX3. . - Labs CBC & Chem 7: 06/03/18 05:12 06/03/18 05:12 Labs: Abnormal Lab Results - Last 24 Hours (Table) 06/03/18 06/03/18 06/03/18 Range/Units 11:15 11:28 16:48 POC Glucose (mg/dL) 136 H 222 H (75-99) mg/dL Hemoglobin A1c 6.4 H (4.0-6.0) % 06/03/18 06/04/18 06/04/18 Range/Units 20:58 03:15 03:32 POC Glucose (mg/dL) 213 H 48 L 70 L (75-99) mg/dL Hemoglobin A1c (4.0-6.0) % 06/04/18 Range/Units 05:52 POC Glucose (mg/dL) 140 H (75-99) mg/dL Hemoglobin A1c (4.0-6.0) % Assessment and Plan Plan: Assessment and plan 1. Acute on chronic diastolic heart failure. 2. Diabetes mellitus type 2 3. Hypertensive cardiovascular disease. 4. Paroxysmal atrial fibrillation. 5. Chronic venous stasis of the lower extremities 6. Hyperlipidemia. 7. Benign prostatic hypertrophy. 8. Generalized anxiety disorder and panic attacks Plan Echocardiogram with Doppler study was performed which revealed an ejection fraction of 50-55%. We will check today's labs and order daily lytes BUN and creatinine. Continue current dose of IV Lasix, monitor intake and output along with daily weights. DNP note has been reviewed, I agree with a documented findings and plan of care. Patient was seen and examined.
[2018-06-04 12:05] LABS: Anion Gap 10 mmol/L; Blood Urea Nitrogen 29 mg/dL (9-20); Calcium 8.2 mg/dL (8.4-10.2); Carbon Dioxide 32 mmol/L (22-30); Chloride 99 mmol/L (98-107); Glucose 150 mg/dL (74-99); Potassium 3.3 mmol/L (3.5-5.1); Sodium 141 mmol/L (137-145)
[2018-06-04 16:06] LABS: Appearance,Urine Bloody (Clear); Mucus,Urine Many /hpf; RBC,Urine >182 /hpf (0-5); WBC,Urine >182 /hpf (0-5)
[2018-06-04 16:07] LABS: Color,Urine Dark Red
[2018-06-04 16:46] LABS: Glucose,Whole Blood 65 mg/dL (75-99)
[2018-06-04 16:58] LABS: Glucose,Whole Blood 64 mg/dL (75-99)
[2018-06-04 17:06] LABS: Glucose,Whole Blood 123 mg/dL (75-99)
[2018-06-04] MEDS ORDERED: Potassium Replacement Protocol 1 EACH MISC MISCELLANE PRN (17:28)
[2018-06-04] MEDS: POTASSIUM CHLORIDE ER 20 MEQ TAB.ER PO SCH ×2 (18:12→19:53)
[2018-06-04] MEDS: ATORVASTATIN 10 MG TAB PO SCH (19:53)
[2018-06-04] MEDS: SERTRALINE 100 MG TAB PO SCH (19:53)
[2018-06-04] MEDS: ALPRAZolam 0.25 MG TAB PO SCH ×2 (19:56→21:12)
[2018-06-04 20:43] LABS: Glucose,Whole Blood 321 mg/dL (75-99)
[2018-06-04] MEDS ORDERED: HALOPERIDOL LACTATE 5 MG/ML 1 ML VIAL IVP PRN (22:08)
[2018-06-04] MEDS ORDERED: QUEtiapine 25 MG TAB PO SCH (22:15)
[2018-06-05] MEDS: ACETAMINOPHEN TAB 325 MG TAB PO PRN (01:11)
[2018-06-05] MEDS ORDERED: HALOPERIDOL LACTATE 5 MG/ML 1 ML VIAL IVP STA (03:01)
[2018-06-05 06:05] LABS: Glucose,Whole Blood 265 mg/dL (75-99)
[2018-06-05] MEDS: CARVEDILOL 12.5 MG TAB PO SCH ×2 (06:21→16:56)
[2018-06-05] MEDS: INSULIN ASPART 100 UNIT/ML 1 ML 10 ML VIAL SQ SCH ×4 (06:21→21:47)
[2018-06-05] MEDS: glipiZIDE 5 MG TAB PO SCH (06:21)
[2018-06-05 06:34] LABS: Anisocytosis Slight; HCT 34.8 % (39.0-53.0); Hypochromasia Slight; MCH 28.5 pg (25.0-35.0); MCHC 31.8 g/dL (31.0-37.0); MCV 89.9 fL (80.0-100.0); Mean Platelet Volume 8.2; Platelet Count 216 k/uL (150-450); RBC 3.87 m/uL (4.30-5.90); RDW 16.6 % (11.5-15.5); WBC 13.2 k/uL (3.8-10.6)
[2018-06-05 06:42] LABS: Anion Gap 11 mmol/L; Blood Urea Nitrogen 28 mg/dL (9-20); Calcium 8.2 mg/dL (8.4-10.2); Carbon Dioxide 32 mmol/L (22-30); Chloride 100 mmol/L (98-107); Glucose 231 mg/dL (74-99); Potassium 3.6 mmol/L (3.5-5.1); Sodium 143 mmol/L (137-145)
[2018-06-05] MEDS: APIXABAN 5 MG TAB PO SCH ×2 (08:33→20:30)
[2018-06-05] MEDS: FUROSEMIDE 10 MG/ML 4 ML VIAL IV SCH ×3 (08:33→22:52)
[2018-06-05] MEDS: ASPIRIN 81 MG PO SCH (08:33)
[2018-06-05] MEDS: amLODIPine 5 MG TAB PO SCH ×2 (08:33→20:30)
[2018-06-05] MEDS: INSULN ASP PRT/INSULIN ASPART 100 UNIT/ML 10 ML VIAL SQ SCH ×2 (08:34→21:47)
[2018-06-05] MEDS: FAMOTIDINE 20 MG TAB PO SCH (08:34)
[2018-06-05] MEDS: cloNIDine HCL 0.2 MG TAB PO SCH ×2 (08:34→20:30)
[2018-06-05] MEDS: DULoxetine HCL 30 MG CAPSULE.DR PO SCH (08:34)
[2018-06-05] MEDS: cefTRIAXone IN SWFI 1,000 MG/10 ML SYRINGE IVP SCH (08:34)
[2018-06-05] MEDS: LISINOPRIL 20 MG TAB PO SCH ×2 (08:35→20:30)
[2018-06-05] MEDS: NYSTATIN 100,000 UNIT/GM OINT 30 GM TUBE TOPICAL SCH ×2 (08:35→20:31)
[2018-06-05] MEDS: ISOSORBIDE MONONITRATE ER 30 MG TAB.ER.24H PO SCH (08:35)
[2018-06-05] MEDS: TRIAMCINOLONE ACET 0.1% OINTMENT 15 GM TUBE TOPICAL SCH ×2 (08:35→20:31)
[2018-06-05] MEDS: POTASSIUM CHLORIDE ER 10 MEQ TAB.ER.PRT PO SCH (08:35)
[2018-06-05] MEDS: NITROGLYCERIN OINT 1 INCH/GM PACKET TOPICAL SCH ×4 (08:35→20:31)
[2018-06-05] MEDS: FINASTERIDE 5 MG TAB PO SCH (08:35)
--- NOTE | 2018-06-05 12:08 | P.PN ---
Subjective Progress Note Date: 06/05/18 Principal diagnosis: CHF This is a 78-year-old gentleman with history of right-sided congestive heart failure, diabetes, hypertension, chronic atrial fibrillation, admitted to the hospital with symptoms of progressively worsening shortness of breath with worsening leg edema. Patient was seen in consultation yesterday by Dr. Cervantes and initiated on IV Lasix. Patient was mildly confused through the night, he was pulling on his Fierro catheter, this morning it is noted that he has some hematuria and his catheter. It is clearing up significantly. Patient also apparently slipped on some water on the floor and felt some discomfort in his groin area but did not fall completely down to the ground. At the time of my examination this morning his and daughter are at bedside, is alert and oriented 2. Blood pressure 126/56 with a heart rate in the 60s, 96% on room air. Lab data from today is still pending. Urine output through the night last night over 3500. Echocardiogram with Doppler study was performed which revealed an ejection fraction of 50-55%. Patient continues to be on IV Lasix 40 mg every 8 hourly. 06/05/2018 Patient seen and examined this morning, quite confused. Continues to be on IV Lasix 40 mg every 8 hourly. Continues to put out good urine, continues to have hematuria, however the patient continues through the night a pole on his catheter. White blood cell count 13.2, 11.0 hemoglobin, platelet count 216. Sodium 143, potassium 3.6, BUN 28, creatinine 0.9. Objective - Vital Signs Vital signs: Vital Signs Temp 97.8 F 06/05/18 11:47 Pulse 78 06/05/18 11:51 Resp 20 06/05/18 11:51 BP 138/69 06/05/18 11:47 Pulse Ox 95 06/05/18 11:47 Intake & Output 06/04/18 06/05/18 06/05/18 18:59 06:59 18:59 Intake Total 658 358 Output Total 240 1450 Balance 418 -1450 358 Intake: Oral 658 358 Output: Urine 240 1450 Uretheral (Fierro) 240 Other: Voiding Method Indwelling Catheter Indwelling Catheter Indwelling Catheter - Exam PHYSICAL EXAMINATION: GENERAL: 78-year-old gentleman in no acute distress at the time of my examination HEENT: Head is atraumatic, normocephalic. Pupils equal, round. Sclera anicteric. Conjunctiva are clear. Mucous membranes of the mouth are moist. Neck is supple. There is no elevated jugular venous pressure.] No carotid bruit is heard. HEART EXAMINATION: Heart S1, S2 normal. No murmur or gallop heard. CHEST EXAMINATION: His reveal diminished air entry to bilateral bases with rales bilaterally to the bases. ABDOMEN: Soft, obese, nontender. Bowel sounds are heard. No organomegaly noted. EXTREMITIES: 1+ peripheral pulses with 2+ evidence of peripheral edema and evidence of chronic venous stasis . NEUROLOGIC patient is awake, confused. - Labs CBC & Chem 7: 06/05/18 06:19 06/05/18 06:19 Labs: Abnormal Lab Results - Last 24 Hours (Table) 06/04/18 06/04/18 06/04/18 Range/Units 11:28 16:35 16:48 WBC (3.8-10.6) k/uL RBC (4.30-5.90) m/uL Hgb (13.0-17.5) gm/dL Hct (39.0-53.0) % RDW (11.5-15.5) % Potassium 3.3 L (3.5-5.1) mmol/L Carbon Dioxide 32 H (22-30) mmol/L BUN 29 H (9-20) mg/dL Glucose 150 H (74-99) mg/dL POC Glucose (mg/dL) 65 L 64 L (75-99) mg/dL Calcium 8.2 L (8.4-10.2) mg/dL Urine RBC (0-5) /hpf Urine WBC (0-5) /hpf Urine WBC Clumps (None) /hpf Urine Mucus (None) /hpf 06/04/18 06/04/18 06/04/18 Range/Units 17:02 20:40 Unknown WBC (3.8-10.6) k/uL RBC (4.30-5.90) m/uL Hgb (13.0-17.5) gm/dL Hct (39.0-53.0) % RDW (11.5-15.5) % Potassium (3.5-5.1) mmol/L Carbon Dioxide (22-30) mmol/L BUN (9-20) mg/dL Glucose (74-99) mg/dL POC Glucose (mg/dL) 123 H 321 H (75-99) mg/dL Calcium (8.4-10.2) mg/dL Urine RBC >182 H (0-5) /hpf Urine WBC >182 H (0-5) /hpf Urine WBC Clumps Many H (None) /hpf Urine Mucus Many H (None) /hpf 06/05/18 06/05/18 06/05/18 Range/Units 05:47 06:19 06:19 WBC 13.2 H (3.8-10.6) k/uL RBC 3.87 L (4.30-5.90) m/uL Hgb 11.0 L (13.0-17.5) gm/dL Hct 34.8 L (39.0-53.0) % RDW 16.6 H (11.5-15.5) % Potassium (3.5-5.1) mmol/L Carbon Dioxide 32 H (22-30) mmol/L BUN 28 H (9-20) mg/dL Glucose 231 H (74-99) mg/dL POC Glucose (mg/dL) 265 H (75-99) mg/dL Calcium 8.2 L (8.4-10.2) mg/dL Urine RBC (0-5) /hpf Urine WBC (0-5) /hpf Urine WBC Clumps (None) /hpf Urine Mucus (None) /hpf Microbiology - Last 24 Hours (Table) 06/04/18 09:28 Urine Culture - Preliminary Urine,Catheterized Assessment and Plan Plan: Assessment and plan 1. Acute on chronic diastolic heart failure. 2. Diabetes mellitus type 2 3. Hypertensive cardiovascular disease. 4. Paroxysmal atrial fibrillation. 5. Chronic venous stasis of the lower extremities 6. Hyperlipidemia. 7. Benign prostatic hypertrophy. 8. Generalized anxiety disorder and panic attacks Plan Echocardiogram with Doppler study was performed which revealed an ejection fraction of 50-55%. Continue current dose of IV Lasix. DNP note has been reviewed, I agree with a documented findings and plan of care. Patient was seen and examined.
[2018-06-05 12:17] LABS: Glucose,Whole Blood 87 mg/dL (75-99)
--- NOTE | 2018-06-05 12:30 | US ---
EXAMINATION TYPE: US venous doppler duplex LE BI DATE OF EXAM: 06/05/2018 12:05 PM COMPARISON: NONE CLINICAL HISTORY: LE edema . SIDE PERFORMED: Bilateral TECHNIQUE: The lower extremity deep venous system is examined utilizing real time linear array sonog cydney with graded compression, doppler sonography and color-flow sonography. VESSELS IMAGED: External Iliac Vein (EIV), unable to visualize see limitations below Common Femoral Vein, unable to visualize see limitations below Deep Femoral Vein, unable to visualize see limitations below Greater Saphenous Vein *,unable to visualize see limitations below Femoral Vein Popliteal Vein Small Saphenous Vein * Proximal Calf Veins, unable to visualize see limitations below (* superficial vessels) Morbidly obese patient with very large abdomen, who needed to sit upright due to SOB. Patient in rest raints. Severe swelling as well, worse on left. Technically difficult and limited study. Right Leg: Appears negative with above limitations. Left Leg: Appears negative with above limitations. No popliteal fossa lesion is seen. IMPRESSION: THIS EXAMINATION IS NEGATIVE FOR DVT IN BOTH LEGS.
--- NOTE | 2018-06-05 14:45 | P.PN ---
Subjective Progress Note Date: 06/05/18 This is a 78-year-old male patient of Dr. Colon with past medical history of chronic heart failure, diabetes mellitus type 2, paroxysmal atrial fibrillation, TIA, hypertension, hyperlipidemia, benign prostatic hypertrophy, lower extremity edema, history of venous stasis ulcer left calf. Patient's and daughter are at the bedside and give most of the history. 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 His states that he got there and he was sweating profusely and shaking and was somewhat incoherent. A couple hours later she called their daughter as he was still not feeling well and his blood sugar was 62 but by this time he was speaking in full sentences. They did call 911 but the patient did not want any treatment. His lower extremity edema was a little bit worse. He complains of cough, sore throat, rodas sputum production. No fever or chills. He denies any pain with breathing. No choking on his food. He does state is unable to lay flat. He has had increased panic attacks over the last couple days. At 3 in the morning he woke up his that he couldn't breathe at that time he did want to come into the hospital for evaluation. Patient is also stating that he is hearing voices and thought it was related to eliquis which he started in February for atrial fibrillation. 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 Patient came in to [facility] emergency center for evaluation. His blood pressure was 219/97, afebrile, respiratory rate 28. White count was 11.2, hemoglobin 13.0. BUN 26 and creatinine 0.7. Blood sugar was 196. ProBNP 635. D-dimer was 2.59 and patient went for CAT scan but he was unable to lay flat for this. Initial troponin 0.012. Chest x-ray shows congestive heart failure. Chronic elevated right diaphragm. This is new compared to old exam. EKG was in normal sinus rhythm with no acute ST changes. Patient was started on IV Lasix 40 mg, Nitro-Bid nitro sublingual, Lovenox and admitted to the selective care unit. Cardiology consult requested and serial troponins. VQ scan was ordered. Echocardiogram reveals severe concentric left ventricular hypertrophy, EF 50-55% , LA moderately dilated 34-39, mild mitral regurgitation, mild tricuspid regurgitation. 06/04: Patient has been seen by shipping helper and Catapres increased. Last evening , patient became quite confused and CAT scan of the brain was ordered that showed cerebral atrophy and chronic small vessel ischemic change with no acute abnormality. At 3 in the morning he had a low blood sugar 48 and Levemir was discontinued completely and also has 70/30 insulin was decreased to 45 mg twice daily. Hemoglobin A1c came back at 6.4. Patient has had episodes of hypoglycemia at home. Patient had incontinence and continuous voiding yesterday for which a Fierro catheter was placed. During his episode of confusion he did pull this Fierro out which has been replaced. Patient initially refused nystatin/triamcinolone cream to his legs but after discussion this morning he will use. Pulse ox is 97% on room air, respirations 20-24. Breathing status seems to be improving. Because patient was able to lay flat for the CAT scan of the brain, we will ask for VQ scan to be done today. Urinalysis and urine culture ordered. Anticipate discharge probably on Thursday. 06/05 patient had significant confusion overnight with episode of belligerence and walking into other patient's troponin. Received 2 doses of Haldol and one dose of Ativan with no improvement. Patient was initiated onset of cold 12.5 mg at bedtime with no improvement. Patient does not know a years male brought him to the hospital he [place] the [place]. Physical examination was concerning for decreased bowel sounds will order abdominal x-ray. Lower extremity Doppler to rule out blood clots as patient is unable to lay flat for the VQ scan ordered the CTA. Xanax discontinued as it is worsening with confusion. Objective - Vital Signs Vital signs: Vital Signs Temp 97.8 F 06/05/18 11:47 Pulse 78 06/05/18 11:51 Resp 20 06/05/18 11:51 BP 138/69 06/05/18 11:47 Pulse Ox 95 06/05/18 11:47 Intake & Output 06/04/18 06/05/18 06/05/18 18:59 06:59 18:59 Intake Total 658 358 Output Total 240 1450 Balance 418 -1450 358 Intake: Oral 658 358 Output: Urine 240 1450 Uretheral (Fierro) 240 Other: Voiding Method Indwelling Catheter Indwelling Catheter Indwelling Catheter - Exam - Constitutional General appearance: cooperative, in mild acute distress, morbidly obese currently in soft restraints due to active confusion - EENT Eyes: anicteric sclerae, PERRLA, normal appearance ENT: hearing grossly normal - Neck Neck: no lymphadenopathy, normal ROM, no other, no rigidity, no stridor, no thyromegaly - Respiratory Respiratory: bilateral diminished air entry bilaterally with rates - Cardiovascular Rhythm: regular Heart sounds: normal: S1, S2 Abnormal Heart Sounds: no systolic murmur, no diastolic murmur, no rub, no S3 Gallop, no S4 Gallop, no click, 2+ peripheral edema - Gastrointestinal General gastrointestinal: Decreased bowel sounds, soft, distended - Integumentary Integumentary: no rash - Neurologic Neurologic: Difficult to assess due to the confusion - Musculoskeletal Musculoskeletal: strength equal bilaterally - Psychiatric Psychiatric: A&O x's 3, appropriate affect - Labs CBC & Chem 7: 06/05/18 06:19 06/05/18 06:19 Labs: Abnormal Lab Results - Last 24 Hours (Table) 06/04/18 06/04/18 06/04/18 Range/Units 16:35 16:48 17:02 WBC (3.8-10.6) k/uL RBC (4.30-5.90) m/uL Hgb (13.0-17.5) gm/dL Hct (39.0-53.0) % RDW (11.5-15.5) % Carbon Dioxide (22-30) mmol/L BUN (9-20) mg/dL Glucose (74-99) mg/dL POC Glucose (mg/dL) 65 L 64 L 123 H (75-99) mg/dL Calcium (8.4-10.2) mg/dL Urine RBC (0-5) /hpf Urine WBC (0-5) /hpf Urine WBC Clumps (None) /hpf Urine Mucus (None) /hpf 06/04/18 06/04/18 06/05/18 Range/Units 20:40 Unknown 05:47 WBC (3.8-10.6) k/uL RBC (4.30-5.90) m/uL Hgb (13.0-17.5) gm/dL Hct (39.0-53.0) % RDW (11.5-15.5) % Carbon Dioxide (22-30) mmol/L BUN (9-20) mg/dL Glucose (74-99) mg/dL POC Glucose (mg/dL) 321 H 265 H (75-99) mg/dL Calcium (8.4-10.2) mg/dL Urine RBC >182 H (0-5) /hpf Urine WBC >182 H (0-5) /hpf Urine WBC Clumps Many H (None) /hpf Urine Mucus Many H (None) /hpf 06/05/18 06/05/18 Range/Units 06:19 06:19 WBC 13.2 H (3.8-10.6) k/uL RBC 3.87 L (4.30-5.90) m/uL Hgb 11.0 L (13.0-17.5) gm/dL Hct 34.8 L (39.0-53.0) % RDW 16.6 H (11.5-15.5) % Carbon Dioxide 32 H (22-30) mmol/L BUN 28 H (9-20) mg/dL Glucose 231 H (74-99) mg/dL POC Glucose (mg/dL) (75-99) mg/dL Calcium 8.2 L (8.4-10.2) mg/dL Urine RBC (0-5) /hpf Urine WBC (0-5) /hpf Urine WBC Clumps (None) /hpf Urine Mucus (None) /hpf Microbiology - Last 24 Hours (Table) 06/04/18 09:28 Urine Culture - Preliminary Urine,Catheterized Assessment and Plan Plan: 1. Acute on chronic diastolic heart failure. Echocardiogram as above. Consult with cardiology appreciated. Continue Lasix currently at 40 mg IV every 8 hours, Coreg 25 mg twice daily, daily weights, I&O. VQ scan pending to rule out PE. Patient is continued on eliquis. 2. Diabetes mellitus type 2, uncontrolled with hyperglycemia. Hemoglobin A1 C 6.4. Continue glipizide 5 mg twice daily, NovoLog scale before meals and at bedtime, NovoLog 70/30 decreased to 45 units twice daily, Levemir discontinued. Metformin is on hold. 3. Hypertensive cardiovascular disease. Continue Norvasc 5 mg twice daily, Coreg 25 mg twice daily, clonidine 0.2 mg twice daily, Imdur 30 mg daily lisinopril 20 mg twice daily. 4. Paroxysmal atrial fibrillation. Continue eliquis 5 mg twice daily, Coreg 25 mg twice daily. 5. Chronic venous stasis of the lower extremities with yeast-type presentation. Patient will be placed on nystatin, triamcinolone cream twice daily. 6. Hyperlipidemia. Continue Lipitor 10 mg at bedtime. 7. Benign prostatic hypertrophy. Continue finasteride 5 mg daily. Check post void residual. 8. Generalized anxiety disorder and panic attacks worsening since Thursday. Continue Xanax 0.25 mg at bedtime and Zoloft 100 mg at bedtime, Cymbalta 30 mg daily. When necessary Ativan 9. DVT prophylaxis. Continue eliquis. 10. GI prophylaxis. Pepcid. 11 altered mental status likely secondary to delirium. Avoid benzodiazepines. Concern for underlying infection UA positive for UTI continue Rocephin. Abdominal x-ray ordered to rule out obstruction. Venous Doppler lower extremity was negative for blood clot. Seroquel initiated at 25 mg at bedtime CODE STATUS full code Discharge plan: home on Thursday
[2018-06-05 16:47] LABS: Glucose,Whole Blood 177 mg/dL (75-99)
--- NOTE | 2018-06-05 17:38 | XR ---
EXAMINATION TYPE: XR abdomen 1V DATE OF EXAM: 06/05/2018 4:27 PM CLINICAL HISTORY: Abdominal pain with history of nephrolithiasis. TECHNIQUE: Single supine KUB image of the abdomen is obtained. COMPARISON: None. FINDINGS: Exam is somewhat limited secondary to patient body habitus. Scattered gas is seen in nondil ated small bowel loops. Gas and fecal material is seen in nondilated colon. There is no gross evidenc e of abnormal calcification appreciated. Osseous structures are grossly intact. IMPRESSION: No radiopaque calculi to suggest nephrolithiasis. Nonobstructive bowel gas pattern.
[2018-06-05] MEDS: ATORVASTATIN 10 MG TAB PO SCH (20:30)
[2018-06-05] MEDS: ALPRAZolam 0.25 MG TAB PO SCH (20:30)
[2018-06-05] MEDS: SERTRALINE 100 MG TAB PO SCH (20:31)
[2018-06-05] MEDS ORDERED: cefTRIAXone IN SWFI 1,000 MG/10 ML SYRINGE IVP SCH (21:00)
[2018-06-05] MEDS ORDERED: QUEtiapine 25 MG TAB PO SCH (21:00)
[2018-06-05 21:38] LABS: Glucose,Whole Blood 348 mg/dL (75-99)
[2018-06-06] MEDS: CARVEDILOL 12.5 MG TAB PO SCH ×2 (06:19→18:27)
[2018-06-06 06:23] LABS: Anisocytosis Slight; HCT 32.4 % (39.0-53.0); HGB 10.6 gm/dL (13.0-17.5); MCH 29.1 pg (25.0-35.0); MCHC 32.8 g/dL (31.0-37.0); MCV 88.7 fL (80.0-100.0); Mean Platelet Volume 8.6; Platelet Count 211 k/uL (150-450); RBC 3.65 m/uL (4.30-5.90); RDW 16.5 % (11.5-15.5); WBC 12.1 k/uL (3.8-10.6)
[2018-06-06 06:49] LABS: Glucose,Whole Blood 115 mg/dL (75-99)
[2018-06-06] MEDS: INSULIN ASPART 100 UNIT/ML 1 ML 10 ML VIAL SQ SCH ×4 (06:50→23:57)
[2018-06-06 06:58] LABS: Calcium 8.4 mg/dL (8.4-10.2); Potassium 3.7 mmol/L (3.5-5.1)
[2018-06-06] MEDS: FUROSEMIDE 10 MG/ML 4 ML VIAL IV SCH ×3 (08:48→23:57)
[2018-06-06] MEDS: APIXABAN 5 MG TAB PO SCH ×2 (08:49→20:14)
[2018-06-06] MEDS: amLODIPine 5 MG TAB PO SCH ×2 (08:49→20:14)
[2018-06-06] MEDS: cefTRIAXone IN SWFI 1,000 MG/10 ML SYRINGE IVP SCH (08:50)
[2018-06-06] MEDS: ASPIRIN 81 MG PO SCH (08:50)
[2018-06-06] MEDS: DULoxetine HCL 30 MG CAPSULE.DR PO SCH (08:51)
[2018-06-06] MEDS: cloNIDine HCL 0.2 MG TAB PO SCH ×2 (08:51→20:14)
[2018-06-06] MEDS: LISINOPRIL 20 MG TAB PO SCH ×2 (08:52→20:14)
[2018-06-06] MEDS: FINASTERIDE 5 MG TAB PO SCH (08:52)
[2018-06-06] MEDS: NYSTATIN 100,000 UNIT/GM OINT 30 GM TUBE TOPICAL SCH ×2 (08:52→20:05)
[2018-06-06] MEDS: NITROGLYCERIN OINT 1 INCH/GM PACKET TOPICAL SCH ×4 (08:52→23:55)
[2018-06-06] MEDS: ISOSORBIDE MONONITRATE ER 30 MG TAB.ER.24H PO SCH (08:52)
[2018-06-06] MEDS: POTASSIUM CHLORIDE ER 10 MEQ TAB.ER.PRT PO SCH (08:52)
[2018-06-06] MEDS: FAMOTIDINE 20 MG TAB PO SCH (08:52)
[2018-06-06] MEDS: TRIAMCINOLONE ACET 0.1% OINTMENT 15 GM TUBE TOPICAL SCH ×2 (08:53→20:05)
--- NOTE | 2018-06-06 09:22 | P.PN ---
Subjective Progress Note Date: 06/06/18 Principal diagnosis: Atrial fibrillation/CHF This is a pleasant 78-year-old gentleman who I follow in the office as an outpatient with morbid obesity, paroxysmal atrial fibrillation, diabetes, hypertension, and dyslipidemia was admitted to the hospital with congestive heart failure secondary to diastolic dysfunction. On follow-up with him today, he seems better than yesterday. He is not as confused as yesterday. Shortness of breath is definitely better. The chest examination is better into off less crackles and less wheezing. Overall he is feeling better. The blood pressure and heart rate are within normal limits. He continues to be on Lasix IV at 40 mg 3 times a day and the creatinine continues to be stable. Objective - Vital Signs Vital signs: Vital Signs Temp 97.3 F L 06/06/18 08:00 Pulse 64 06/06/18 08:00 Resp 16 06/06/18 04:00 BP 129/68 06/06/18 08:00 Pulse Ox 92 L 06/06/18 08:00 Intake & Output 06/05/18 06/06/18 06/06/18 18:59 06:59 18:59 Intake Total 594 Balance 594 Weight 146.6 kg Intake: Oral 594 Other: Voiding Method Indwelling Catheter Indwelling Catheter - Constitutional General appearance: Present: no acute distress - Respiratory Respiratory: bilateral: CTA - Cardiovascular Rhythm: regular Heart sounds: normal: S1, S2 - Labs CBC & Chem 7: 06/06/18 06:09 06/06/18 06:09 Labs: Abnormal Lab Results - Last 24 Hours (Table) 06/05/18 06/05/18 06/06/18 Range/Units 16:45 21:32 06:09 WBC 12.1 H (3.8-10.6) k/uL RBC 3.65 L (4.30-5.90) m/uL Hgb 10.6 L (13.0-17.5) gm/dL Hct 32.4 L (39.0-53.0) % RDW 16.5 H (11.5-15.5) % Sodium (137-145) mmol/L Carbon Dioxide (22-30) mmol/L BUN (9-20) mg/dL Glucose (74-99) mg/dL POC Glucose (mg/dL) 177 H 348 H (75-99) mg/dL 06/06/18 06/06/18 Range/Units 06:09 06:45 WBC (3.8-10.6) k/uL RBC (4.30-5.90) m/uL Hgb (13.0-17.5) gm/dL Hct (39.0-53.0) % RDW (11.5-15.5) % Sodium 146 H (137-145) mmol/L Carbon Dioxide 36 H (22-30) mmol/L BUN 38 H (9-20) mg/dL Glucose 67 L (74-99) mg/dL POC Glucose (mg/dL) 115 H (75-99) mg/dL Microbiology - Last 24 Hours (Table) 06/04/18 09:28 Urine Culture - Preliminary Urine,Catheterized Group D Enterococcus Assessment and Plan Assessment: Assessment #1 change in mental status which has improved #2 paroxysmal atrial fibrillation #3 acute on chronic diastolic heart failure #4 morbid obesity #5 multiple comorbid conditions Plan #1 continue the Lasix IV for at least additional 24 hours #2 continue monitor the kidney function and electrolytes #3 the echocardiogram revealed normal LV function #4 follow-up with the patient.
[2018-06-06 11:55] LABS: Glucose,Whole Blood 171 mg/dL (75-99)
[2018-06-06] MEDS: INSULN ASP PRT/INSULIN ASPART 100 UNIT/ML 10 ML VIAL SQ SCH (12:19)
--- NOTE | 2018-06-06 14:47 | P.PN ---
Subjective Progress Note Date: 06/06/18 This is a 78-year-old male patient of Dr. Colon with past medical history of chronic heart failure, diabetes mellitus type 2, paroxysmal atrial fibrillation, TIA, hypertension, hyperlipidemia, benign prostatic hypertrophy, lower extremity edema, history of venous stasis ulcer left calf. Patient's and daughter are at the bedside and give most of the history. 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 His states that he got there and he was sweating profusely and shaking and was somewhat incoherent. A couple hours later she called their daughter as he was still not feeling well and his blood sugar was 62 but by this time he was speaking in full sentences. They did call 911 but the patient did not want any treatment. His lower extremity edema was a little bit worse. He complains of cough, sore throat, rodas sputum production. No fever or chills. He denies any pain with breathing. No choking on his food. He does state is unable to lay flat. He has had increased panic attacks over the last couple days. At 3 in the morning he woke up his that he couldn't breathe at that time he did want to come into the hospital for evaluation. Patient is also stating that he is hearing voices and thought it was related to eliquis which he started in February for atrial fibrillation. 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 Patient came in to [facility] emergency center for evaluation. His blood pressure was 219/97, afebrile, respiratory rate 28. White count was 11.2, hemoglobin 13.0. BUN 26 and creatinine 0.7. Blood sugar was 196. ProBNP 635. D-dimer was 2.59 and patient went for CAT scan but he was unable to lay flat for this. Initial troponin 0.012. Chest x-ray shows congestive heart failure. Chronic elevated right diaphragm. This is new compared to old exam. EKG was in normal sinus rhythm with no acute ST changes. Patient was started on IV Lasix 40 mg, Nitro-Bid nitro sublingual, Lovenox and admitted to the selective care unit. Cardiology consult requested and serial troponins. VQ scan was ordered. Echocardiogram reveals severe concentric left ventricular hypertrophy, EF 50-55% , LA moderately dilated 34-39, mild mitral regurgitation, mild tricuspid regurgitation. 06/04: Patient has been seen by gasoline finisher and Catapres increased. Last evening , patient became quite confused and CAT scan of the brain was ordered that showed cerebral atrophy and chronic small vessel ischemic change with no acute abnormality. At 3 in the morning he had a low blood sugar 48 and Levemir was discontinued completely and also has 70/30 insulin was decreased to 45 mg twice daily. Hemoglobin A1c came back at 6.4. Patient has had episodes of hypoglycemia at home. Patient had incontinence and continuous voiding yesterday for which a Fierro catheter was placed. During his episode of confusion he did pull this Fierro out which has been replaced. Patient initially refused nystatin/triamcinolone cream to his legs but after discussion this morning he will use. Pulse ox is 97% on room air, respirations 20-24. Breathing status seems to be improving. Because patient was able to lay flat for the CAT scan of the brain, we will ask for VQ scan to be done today. Urinalysis and urine culture ordered. Anticipate discharge probably on Thursday. 06/05 patient had significant confusion overnight with episode of belligerence and walking into other patient's troponin. Received 2 doses of Haldol and one dose of Ativan with no improvement. Patient was initiated onset of cold 12.5 mg at bedtime with no improvement. Patient does not know a years male brought him to the hospital he [place] is [place] the [place]. Physical examination was concerning for decreased bowel sounds will order abdominal x-ray. Lower extremity Doppler to rule out blood clots as patient is unable to lay flat for the VQ scan ordered the CTA. Xanax discontinued as it is worsening with confusion. 06/06 patient is confusion is much better than yesterday. He is oriented to self and place. He does has some facial droop on the right noticed by the family members came to see the patient concerning for stroke. CT head was negative for any acute cranial process. Neurological exam was benign with no sensorimotor deficit. Neurology consulted for any further recommendations. Continue IV Lasix for next 24 hours. Objective - Vital Signs Vital signs: Vital Signs Temp 97.3 F L 06/06/18 08:00 Pulse 64 06/06/18 08:00 Resp 16 06/06/18 08:00 BP 129/68 06/06/18 08:00 Pulse Ox 92 L 06/06/18 08:00 Intake & Output 06/05/18 06/06/18 06/06/18 18:59 06:59 18:59 Intake Total 594 236 Balance 594 236 Weight 146.6 kg Intake: Oral 594 236 Other: Voiding Method Indwelling Catheter Indwelling Catheter Indwelling Catheter - Exam - Constitutional General appearance: cooperative, in mild acute distress, morbidly obese currently in soft restraints due to active confusion - EENT Eyes: anicteric sclerae, PERRLA, normal appearance ENT: hearing grossly normal - Neck Neck: no lymphadenopathy, normal ROM, no other, no rigidity, no stridor, no thyromegaly - Respiratory Respiratory: bilateral diminished air entry bilaterally with rates - Cardiovascular Rhythm: regular Heart sounds: normal: S1, S2 Abnormal Heart Sounds: no systolic murmur, no diastolic murmur, no rub, no S3 Gallop, no S4 Gallop, no click, 2+ peripheral edema - Gastrointestinal General gastrointestinal: Decreased bowel sounds, soft, distended - Integumentary Integumentary: no rash - Neurologic Neurologic: No sensorimotor deficit 4+/5 power in lower extremities bilaterally. Patient droop on the right.. Normal reflexes - Musculoskeletal Musculoskeletal: strength equal bilaterally - Psychiatric Psychiatric: A&O x's 3, appropriate affect - Labs CBC & Chem 7: 06/06/18 06:09 06/06/18 06:09 Labs: Abnormal Lab Results - Last 24 Hours (Table) 06/05/18 06/05/18 06/06/18 Range/Units 16:45 21:32 06:09 WBC 12.1 H (3.8-10.6) k/uL RBC 3.65 L (4.30-5.90) m/uL Hgb 10.6 L (13.0-17.5) gm/dL Hct 32.4 L (39.0-53.0) % RDW 16.5 H (11.5-15.5) % Sodium (137-145) mmol/L Carbon Dioxide (22-30) mmol/L BUN (9-20) mg/dL Glucose (74-99) mg/dL POC Glucose (mg/dL) 177 H 348 H (75-99) mg/dL 06/06/18 06/06/1806/06/18 Range/Units 06:09 06:45 11:53 WBC (3.8-10.6) k/uL RBC (4.30-5.90) m/uL Hgb (13.0-17.5) gm/dL Hct (39.0-53.0) % RDW (11.5-15.5) % Sodium 146 H (137-145) mmol/L Carbon Dioxide 36 H (22-30) mmol/L BUN 38 H (9-20) mg/dL Glucose 67 L (74-99) mg/dL POC Glucose (mg/dL) 115 H 171 H (75-99) mg/dL Microbiology - Last 24 Hours (Table) 06/04/18 09:28 Urine Culture - Preliminary Urine,Catheterized Group D Enterococcus Assessment and Plan Plan: 1. Acute on chronic diastolic heart failure. Echocardiogram as above. Consult with cardiology appreciated. Continue Lasix currently at 40 mg IV every 8 hours, Coreg 25 mg twice daily, daily weights, I&O. VQ scan pending to rule out PE. Patient is continued on eliquis. 2. Diabetes mellitus type 2, uncontrolled with hyperglycemia. Hemoglobin A1 C 6.4. Continue glipizide 5 mg twice daily, NovoLog scale before meals and at bedtime, NovoLog 70/30 decreased to 45 units twice daily, Levemir discontinued. Metformin is on hold. 3. Hypertensive cardiovascular disease. Continue Norvasc 5 mg twice daily, Coreg 25 mg twice daily, clonidine 0.2 mg twice daily, Imdur 30 mg daily lisinopril 20 mg twice daily. 4. Paroxysmal atrial fibrillation. Continue eliquis 5 mg twice daily, Coreg 25 mg twice daily. 5. Chronic venous stasis of the lower extremities with yeast-type presentation. Patient will be placed on nystatin, triamcinolone cream twice daily. 6. Hyperlipidemia. Continue Lipitor 10 mg at bedtime. 7. Benign prostatic hypertrophy. Continue finasteride 5 mg daily. Check post void residual. 8. Generalized anxiety disorder and panic attacks worsening since Thursday. Continue Xanax 0.25 mg at bedtime and Zoloft 100 mg at bedtime, Cymbalta 30 mg daily. When necessary Ativan 9. DVT prophylaxis. Continue eliquis. 10. GI prophylaxis. Pepcid. 11 altered mental status likely secondary to delirium. Avoid benzodiazepines. Concern for underlying infection UA positive for UTI continue Rocephin. Abdominal x-ray negative for obstruction. Venous Doppler lower extremity was negative for blood clot. Hold Seroquel i. Neurology consulted for concern for stroke CODE STATUS full code Discharge plan: Likely Thursday
--- NOTE | 2018-06-06 16:18 | P.CONS ---
History of Present Illness - Reason for Consult Consult date: 06/06/18 Facial droop - Chief Complaint Right facial droop - History of Present Illness This pleasant 78 year old male being evaluated by the neurology service for the above complaints. She has a significant history of chronic heart failure, diabetes, atrial fibrillation, TIAs, hypertension, hyperlipidemia , BPH, lower extremity edema with venous stasis ulcers. Patient was brought to [facility] emergency room on 06/03/2018 because of difficulty in breathing and some hypoglycemia. Over the course of this admission he is being followed by cardiology with control of his blood pressure. On 06/05/2018 he developed some confusion overnight and was given some Haldol and Ativan. His confusion resolved the next day. Today the family noticed that he had a little worsening of some right facial droop which is chronic for this patient. 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 The family say that that it became significantly pronounced yesterday and is stable today. He denies trouble speaking or swallowing. CT of the brain was done on 06/04/2018 and showed no acute intracranial abnormalities. It did show some chronic small vessel ischemic changes. At the time my exam he is resting comfortably in his bedside chair in no acute distress. Review of Systems All systems: negative Constitutional: Reports as per HPI Past Medical History Past Medical History: Heart Failure, Diabetes Mellitus, Hyperlipidemia, Hypertension Additional Past Medical History / Comment(s): edema, kidney stones, wound lt calf History of Any Multi-Drug Resistant Organisms: None Reported Past Surgical History: Ear Surgery, Orthopedic Surgery Additional Past Surgical History / Comment(s): bilat tubes in his ears Past Anesthesia/Blood Transfusion Reactions: No Reported Reaction Past Psychological History: Anxiety Additional Psychological History / Comment(s): Pt resides with his spouse. He has hx of depression and anxiety. His anxiety has been increased and the past few days he has had panic attacks. He uses no assistive devices. He drives. He has a glucometer. Smoking Status: Never smoker Past Alcohol Use History: None Reported Past Drug Use History: None Reported - Past Family History Father Family Medical History: No Reported History Additional Family Medical History / Comment(s): Father was a heavy smoker. He of a OK at the age of 42yrs. Mother Family Medical History: No Reported History Additional Family Medical History / Comment(s): Mother was healthy and lived to be 87yrs old. Medications and Allergies Home Medications Medication Instructions Recorded Confirmed Type ALPRAZolam [Xanax] 0.25 mg PO HS 05/05/16 06/03/18 History Atorvastatin [Lipitor] 10 mg PO HS 05/05/16 06/03/18 History Finasteride [Proscar] 5 mg PO DAILY 05/05/16 06/03/18 History Furosemide [Lasix] 40 mg PO DAILY 05/05/16 06/03/18 History Insulin Glargine [Lantus] 30 unit SQ HS 05/05/16 06/03/18 History Insuln Asp Prt/Insulin Aspart 50 unit SQ BID 05/05/16 06/03/18 History [NovoLOG MIX 70-30 VIAL] Potassium Chloride [K-Tab ER] 10 meq PO DAILY 05/05/16 06/03/18 History Sertraline [Zoloft] 100 mg PO HS PRN 05/05/16 06/03/18 History cloNIDine HCL [Catapres] 0.1 mg PO BID 05/05/16 06/03/18 History glyBURIDE/METFORMIN HCL 2 tab PO BID 05/05/16 06/03/18 History [Glucovance 5-500 mg Tablet] Apixaban [Eliquis] 5 mg PO BID 06/03/18 06/03/18 History Aspirin [Adult Low Dose Aspirin EC] 162 mg PO DAILY 06/03/18 06/03/18 History Carvedilol 25 mg PO BID 06/03/18 06/03/18 History DULoxetine HCL [Cymbalta] 30 mg PO DAILY 06/03/18 06/03/18 History Isosorbide Mononitrate ER [Imdur] 30 mg PO DAILY 06/03/18 06/03/18 History Loratadine 10 mg PO DAILY PRN 06/03/18 06/03/18 History amLODIPine BESYLATE/BENAZEPRIL 1 cap PO BID 06/03/18 06/03/18 History [Lotrel 5-20 mg Capsule] Allergies Allergy/AdvReac Type Severity Reaction Status Date / Time No Known Allergies Allergy Verified 06/03/18 04:46 Physical Exam Vitals: Vital Signs Temp Pulse Resp BP BP Pulse Ox 06/06/18 08:00 97.3 F L 64 16 129/68 92 L 06/06/18 04:00 98.0 F 72 16 156/72 91 L 06/05/18 23:30 71 16 06/05/18 23:28 97.9 F 71 16 152/69 91 L 06/05/18 20:00 97.6 F 73 19 146/69 94 L Intake and Output 06/06/18 06/06/18 06/06/18 06:59 14:59 22:59 Intake Total 716 Balance 716 Intake: Oral 716 Other: Voiding Method Indwelling Catheter Indwelling Catheter Weight 146.6 kg - Constitutional General appearance: cooperative, no acute distress, obese - EENT Eyes: no abnormal pupil, EOMI, PERRLA, ptosis ENT: hearing grossly normal - Neck Neck: normal ROM, no rigidity - Respiratory Respiratory: negative: prolonged expiration, prolonged inspiration - Cardiovascular Rhythm: regular - Gastrointestinal General gastrointestinal: no distended, no tenderness - Neurologic Patient is alert awake and oriented 3. Speech-language are normal. There is drooping of the right side of the mouth. However he has control of all facial muscle symmetrically. Strength is full in bilateral upper and lower extremities. He has some sensory deficit bilateral lower extremities which is chronic. Otherwise there is no sensory deficit. There is no pronator drift. Tremors or seizure-like activities are seen. Results CBC & Chem 7: 06/06/18 06:09 06/06/18 06:09 Labs: Abnormal Lab Results - Last 24 Hours (Table) 06/05/18 06/05/18 06/06/18 Range/Units 16:45 21:32 06:09 WBC 12.1 H (3.8-10.6) k/uL RBC 3.65 L (4.30-5.90) m/uL Hgb 10.6 L (13.0-17.5) gm/dL Hct 32.4 L (39.0-53.0) % RDW 16.5 H (11.5-15.5) % Sodium (137-145) mmol/L Carbon Dioxide (22-30) mmol/L BUN (9-20) mg/dL Glucose (74-99) mg/dL POC Glucose (mg/dL) 177 H 348 H (75-99) mg/dL 06/06/18 06/06/18 06/06/18 Range/Units 06:09 06:45 11:53 WBC (3.8-10.6) k/uL RBC (4.30-5.90) m/uL Hgb (13.0-17.5) gm/dL Hct (39.0-53.0) % RDW (11.5-15.5) % Sodium 146 H (137-145) mmol/L Carbon Dioxide 36 H (22-30) mmol/L BUN 38 H (9-20) mg/dL Glucose 67 L (74-99) mg/dL POC Glucose (mg/dL) 115 H 171 H (75-99) mg/dL Microbiology - Last 24 Hours (Table) 06/04/18 09:28 Urine Culture - Preliminary Urine,Catheterized Group D Enterococcus Assessment and Plan (1) Facial droop Current Visit: Yes Status: Acute Code(s): R29.810 - FACIAL WEAKNESS SNOMED Code(s): 96404195 (2) Hypertension Current Visit: Yes Status: Chronic Code(s): I10 - ESSENTIAL (PRIMARY) HYPERTENSION SNOMED Code(s): 66664119 (3) Diabetes Current Visit: Yes Status: Chronic Code(s): E11.9 - TYPE 2 DIABETES MELLITUS WITHOUT COMPLICATIONS SNOMED Code(s): 83365384 (4) Atrial fibrillation Current Visit: Yes Status: Chronic Code(s): I48.91 - UNSPECIFIED ATRIAL FIBRILLATION SNOMED Code(s): 32507678 (5) Dyslipidemia Current Visit: Yes Status: Chronic Code(s): E78.5 - HYPERLIPIDEMIA, UNSPECIFIED SNOMED Code(s): 204178910 (6) Altered mental status Current Visit: Yes Status: Resolved Code(s): R41.82 - ALTERED MENTAL STATUS , UNSPECIFIED SNOMED Code(s): 162631576 (7) Congestive heart failure Current Visit: Yes Status: Chronic Code(s): I50.9 - HEART FAILURE, UNSPECIFIED SNOMED Code(s): 32163625 Plan: We were called to evaluate this pleasant gentleman for possible worsening of an existing right mouth droop. His family says this is significantly worse than it had been before. They noticed this yesterday. His CT of the brain was done the day prior. I will update a CT of the brain today. I have ordered a carotid Doppler. I will also order an EEG due to his episode yesterday of confusion. Continue CURRENT medication and treatment plans. We will make recommendations based on the results the above studies. I have performed a history and physical on the above patient. I have reviewed the above note, and agree.
[2018-06-06 16:20] LABS: Glucose,Whole Blood 258 mg/dL (75-99)
--- NOTE | 2018-06-06 17:06 | CT ---
EXAMINATION TYPE: CT brain wo con DATE OF EXAM: 06/06/2018 COMPARISON: 06/04/2018 and 05/09/2016 HISTORY: 78-year-old male with facial droop, follow up scan TECHNIQUE: Examination was done in axial plane without intravenous contrast. Coronal and sagittal r econstructions performed. CT DLP: 772.7 mGycm Automated exposure control for dose reduction was used. FINDINGS: There is no evidence of acute intracranial hemorrhage, acute ischemic changes, mass, mass-effect, or extra-axial fluid collection. There is no effacement of cerebral sulci or basal subarachnoid cister ns. There is no hydrocephalus. There is no midline shift. Marquis-white matter distinction is preserv ed. Mild generalized supratentorial volume loss. Old right thalamic lacunar infarct and mild periventricu lar white matter hypodensities are unchanged. Moderate mucosal thickening right maxillary sinus and mild within the right ethmoid air cells. 1.6 cm rounded enlargement of the left superior pulmonary vein and 1.3 cm rounded soft tissue mass posterio r right orbit were present back on 05/09/2016. Partial opacification of the bilateral middle ear cavities and hypoplastic mastoid air cells. IMPRESSION: 1. Stable exam with mild changes of chronic small vessel ischemic disease, mild generalized atrophy, and old right thalamic lacunar infarct. 2. Partial opacification of the bilateral middle ear cavities and hypoplastic mastoid air cells. Lorena elate for any symptoms of otomastoiditis. 3. Stable rounded masses in the retrobulbar orbits measuring up to 1.6 cm, suspected hemangioma or ve nous varix. 4. No acute intracranial abnormality seen.
[2018-06-06] MEDS ORDERED: INSULN ASP PRT/INSULIN ASPART 100 UNIT/ML 10 ML VIAL SQ SCH (17:30)
--- NOTE | 2018-06-06 20:05 | US ---
EXAMINATION TYPE: US carotid duplex BILAT DATE OF EXAM: 06/06/2018 COMPARISON: NONE CLINICAL HISTORY: 78-year-old male Confusion. Facial droop. Weakness TECHNIQUE: Carotid duplex ultrasound examination. Indirect Doppler criteria was utilized. FINDINGS: EXAM MEASUREMENTS: RIGHT: Peak Systolic Velocity (PSV) cm/sec ----- Right CCA: 119.4 ----- Right ICA: 89.2 ----- Right ECA: 236.6 ICA/CCA ratio: 0.7 RIGHT: End Diastole cm/sec ----- Right CCA: 17.6 ----- Right ICA: 21.9 ----- Right ECA: 10.9 LEFT: Peak Systolic Velocity (PSV) cm/sec ----- Left CCA: 118.0 ----- Left ICA: 91.9 ----- Left ECA: 111.3 ICA/CCA ratio: 0.8 LEFT: End Diastole cm/sec ----- Left CCA: 9.7 ----- Left ICA: 20.8 ----- Left ECA: 9.5 VERTEBRALS (direction of flow): Right Vertebral: unable to visualize Left Vertebral: Antegrade Division Director notes: *Technical limitations due to patient's body habitus and heavy breathing. Mild luis que bilateral bifurcations. Increased velocities right ECA. Unable to visualize right vertebral brittany ry. IMPRESSION: 1. No hemodynamically significant stenosis appreciated in either internal carotid artery. 2. Note, unable to visualize the right vertebral artery. This could be due to patient limitations or vessel pathology/occlusion. 3. Stenosis at the proximal right ECA. Criteria for Assigning % of Stenosis / Diameter reduction (Estimation based on the indirect measurements of the internal carotid artery velocities (ICA PSV). 1. Normal (no stenosis)=ICA PSV < 125 cm/s: ratio < 2.0: ICA EDV<40 cm/s. 2. Less than 50% stenosis=ICA PSV < 125 cm/s: ratio < 2.0: ICA EDV<40 cm/s. 3. 50 to 69% stenosis=ICA PSV of 125 to 230 cm/s: ration 2.0 ? 4.0: ICA EDV 40-100 cm/s. 4. Greater than 70% stenosis to near occlusion= ICA PSV > 230 cm/s: ratio > 4.0: ICA EDV > 100 cm/s. 5. Near occlusion= ICA PSV velocities may be low or undetectable: variable ratio and ICA EDV. 6. Total occlusion=unable to detect flow.
[2018-06-06] MEDS: ALPRAZolam 0.25 MG TAB PO SCH (20:14)
[2018-06-06] MEDS: ATORVASTATIN 10 MG TAB PO SCH (20:14)
[2018-06-06] MEDS: SERTRALINE 100 MG TAB PO SCH (20:15)
[2018-06-06 20:55] LABS: Glucose,Whole Blood 225 mg/dL (75-99)
[2018-06-07 06:07] LABS: Glucose,Whole Blood 115 mg/dL (75-99)
[2018-06-07] MEDS: INSULIN ASPART 100 UNIT/ML 1 ML 10 ML VIAL SQ SCH (06:41)
[2018-06-07] MEDS: CARVEDILOL 12.5 MG TAB PO SCH (07:01)
[2018-06-07] MEDS: ACETAMINOPHEN TAB 325 MG TAB PO PRN (07:09)
[2018-06-07] MEDS ORDERED: INSULN ASP PRT/INSULIN ASPART 100 UNIT/ML 10 ML VIAL SQ SCH (07:30)
[2018-06-07] MEDS: DULoxetine HCL 30 MG CAPSULE.DR PO SCH (08:25)
[2018-06-07] MEDS: FUROSEMIDE 10 MG/ML 4 ML VIAL IV SCH (08:25)
[2018-06-07] MEDS: TRIAMCINOLONE ACET 0.1% OINTMENT 15 GM TUBE TOPICAL SCH (08:25)
[2018-06-07] MEDS: NYSTATIN 100,000 UNIT/GM OINT 30 GM TUBE TOPICAL SCH (08:25)
[2018-06-07] MEDS: ASPIRIN 81 MG PO SCH (08:25)
[2018-06-07] MEDS: FINASTERIDE 5 MG TAB PO SCH (08:25)
[2018-06-07] MEDS: APIXABAN 5 MG TAB PO SCH (08:25)
[2018-06-07] MEDS: FAMOTIDINE 20 MG TAB PO SCH (08:25)
[2018-06-07] MEDS: cloNIDine HCL 0.2 MG TAB PO SCH (08:26)
[2018-06-07] MEDS: amLODIPine 5 MG TAB PO SCH (08:26)
[2018-06-07] MEDS: NITROGLYCERIN OINT 1 INCH/GM PACKET TOPICAL SCH (08:26)
[2018-06-07] MEDS: LISINOPRIL 20 MG TAB PO SCH (08:26)
[2018-06-07] MEDS: ISOSORBIDE MONONITRATE ER 30 MG TAB.ER.24H PO SCH (08:26)
[2018-06-07] MEDS: POTASSIUM CHLORIDE ER 10 MEQ TAB.ER.PRT PO SCH (08:26)
[2018-06-07] MEDS: cefTRIAXone IN SWFI 1,000 MG/10 ML SYRINGE IVP SCH (08:36)
[2018-06-07 08:54] VITALS: BP 153/69; PULSE 79; RESP 16; TEMP 97.3
[2018-06-07 11:17] LABS: Glucose,Whole Blood 189 mg/dL (75-99)
--- NOTE | 2018-06-07 11:51 | P.PN ---
Subjective Progress Note Date: 06/07/18 Principal diagnosis: CHF This is a 78-year-old gentleman with history of right-sided congestive heart failure, diabetes, hypertension, chronic atrial fibrillation, admitted to the hospital with symptoms of progressively worsening shortness of breath with worsening leg edema. Patient was seen in consultation yesterday by Dr. Cervantes and initiated on IV Lasix. Patient was mildly confused through the night, he was pulling on his Fierro catheter, this morning it is noted that he has some hematuria and his catheter. It is clearing up significantly. Patient also apparently slipped on some water on the floor and felt some discomfort in his groin area but did not fall completely down to the ground. At the time of my examination this morning his and daughter are at bedside, is alert and oriented 2. Blood pressure 126/56 with a heart rate in the 60s, 96% on room air. Lab data from today is still pending. Urine output through the night last night over 3500. Echocardiogram with Doppler study was performed which revealed an ejection fraction of 50-55%. Patient continues to be on IV Lasix 40 mg every 8 hourly. 06/05/2018 Patient seen and examined this morning, quite confused. Continues to be on IV Lasix 40 mg every 8 hourly. Continues to put out good urine, continues to have hematuria, however the patient continues through the night a pole on his catheter. White blood cell count 13.2, 11.0 hemoglobin, platelet count 216. Sodium 143, potassium 3.6, BUN 28, creatinine 0.9. 06/07/2018 Patient seen and examined this morning, up in the chair, alert and oriented 3. Blood pressure 138/68 with heart rate in the 60s, 96% on room air. No lab data today. We will obtain lytes BUN and creatinine today. As patient continues to be on IV Lasix, and continues to diurese well. Objective - Vital Signs Vital signs: Vital Signs Temp 97.3 F L 06/07/18 08:00 Pulse 79 06/07/18 08:00 Resp 16 06/07/18 08:00 BP 153/69 06/07/18 08:00 Pulse Ox 95 06/07/18 08:00 Intake & Output 06/06/18 06/07/18 06/07/18 18:59 06:59 18:59 Intake Total 1196 30 370 Output Total 1350 2000 Balance -154 -1970 370 Weight 146.6 kg 147.3 kg Intake: IV 30 10 Invasive Line 2 30 10 Oral 1196 360 Output: Urine 1350 1999 Other: Voiding Method Indwelling Catheter Indwelling Catheter Indwelling Catheter - Exam PHYSICAL EXAMINATION: GENERAL: 78-year-old gentleman in no acute distress at the time of my examination HEENT: Head is atraumatic, normocephalic. Pupils equal, round. Sclera anicteric. Conjunctiva are clear. Mucous membranes of the mouth are moist. Neck is supple. There is no elevated jugular venous pressure.] No carotid bruit is heard. HEART EXAMINATION: Heart S1, S2 normal. No murmur or gallop heard. CHEST EXAMINATION: Lungs are clear with mild diminished air entry to the bases ABDOMEN: Soft, obese, nontender. Bowel sounds are heard. No organomegaly noted. EXTREMITIES: 1+ peripheral pulses with 1+ evidence of peripheral edema and evidence of chronic venous stasis .Bilateral Jemal wraps in place. NEUROLOGIC patient is awake, alert and oriented 3 - Labs CBC & Chem 7: 06/06/18 06:09 06/06/18 06:09 Labs: Abnormal Lab Results - Last 24 Hours (Table) 06/06/18 06/06/18 06/06/18 Range/Units 11:53 16:17 20:44 POC Glucose (mg/dL) 171 H 258 H 225 H (75-99) mg/dL 06/07/18 06/07/18 Range/Units 06:02 11:15 POC Glucose (mg/dL) 115 H 189 H (75-99) mg/dL Microbiology - Last 24 Hours (Table) 06/04/18 09:28 Urine Culture - Final Urine,Catheterized Enterococcus faecalis Assessment and Plan Plan: Assessment and plan 1. Acute on chronic diastolic heart failure. 2. Diabetes mellitus type 2 3. Hypertensive cardiovascular disease. 4. Paroxysmal atrial fibrillation. 5. Chronic venous stasis of the lower extremities 6. Hyperlipidemia. 7. Benign prostatic hypertrophy. 8. Generalized anxiety disorder and panic attacks Plan Echocardiogram with Doppler study was performed which revealed an ejection fraction of 50-55%. Continue current dose of IV Lasix. Repeat chest x-ray today. Check lytes BUN and creatinine today and daily. DNP note has been reviewed, I agree with a documented findings and plan of care. Patient was seen and examined.
[2018-06-07 13:01] LABS: Calcium 8.3 mg/dL (8.4-10.2); Potassium 3.8 mmol/L (3.5-5.1)
--- NOTE | 2018-06-07 14:25 | P.DS ---
Providers Date of admission: 06/03/18 07:09 Expected date of discharge: 06/07/18 Attending physician: Genie Polanco Consults: 06/03/18 07:09 Consult Physician Routine Consulting Provider: Miguel Mcnally Consult Reason/Comments: Congestive heart failure Do you want consulting provider notified?: Yes 06/06/18 12:22 Consult Physician Routine Consulting Provider: Kennedy Lopez Consult Reason/Comments: facial droop, confusion Do you want consulting provider notified?: Yes Primary care physician: [facility] Course: This is a 78-year-old male patient of Dr. Colon with past medical history of chronic heart failure, diabetes mellitus type 2, paroxysmal atrial fibrillation, TIA, hypertension, hyperlipidemia, benign prostatic hypertrophy, lower extremity edema, history of venous stasis ulcer left calf. Patient's and daughter are at the bedside and give most of the history. 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 His states that he got there and he was sweating profusely and shaking and was somewhat incoherent. A couple hours later she called their daughter as he was still not feeling well and his blood sugar was 62 but by this time he was speaking in full sentences. They did call 911 but the patient did not want any treatment. His lower extremity edema was a little bit worse. He complains of cough, sore throat, rodas sputum production. No fever or chills. He denies any pain with breathing. No choking on his food. He does state is unable to lay flat. He has had increased panic attacks over the last couple days. At 3 in the morning he woke up his that he couldn't breathe at that time he did want to come into the hospital for evaluation. Patient is also stating that he is hearing voices and thought it was related to eliquis which he started in February for atrial fibrillation. Dr. Mcnally is patient's button maker and plan was to schedule patient for outpatient stress test. Patient came in to [facility] for evaluation. His blood pressure was 219/97, afebrile, respiratory rate 28. White count was 11.2, hemoglobin 13.0. BUN 26 and creatinine 0.7. Blood sugar was 196. ProBNP 635. D-dimer was 2.59 and patient went for CAT scan but he was unable to lay flat for this. Initial troponin 0.012. Chest x-ray shows congestive heart failure. Chronic elevated right diaphragm. This is new compared to old exam. EKG was in normal sinus rhythm with no acute ST changes. Patient was started on IV Lasix 40 mg, Nitro-Bid nitro sublingual, Lovenox and admitted to the selective care unit. Cardiology consult requested and serial troponins. VQ scan was ordered. Echocardiogram reveals severe concentric left ventricular hypertrophy, EF 50-55% , LA moderately dilated 34-39, mild mitral regurgitation, mild tricuspid regurgitation. 06/04: Patient has been seen by button maker and Catapres increased. Last evening , patient became quite confused and CAT scan of the brain was ordered that showed cerebral atrophy and chronic small vessel ischemic change with no acute abnormality. At 3 in the morning he had a low blood sugar 48 and Levemir was discontinued completely and also has 70/30 insulin was decreased to 45 mg twice daily. Hemoglobin A1c came back at 6.4. Patient has had episodes of hypoglycemia at home. Patient had incontinence and continuous voiding yesterday for which a Fierro catheter was placed. During his episode of confusion he did pull this Fierro out which has been replaced. Patient initially refused nystatin/triamcinolone cream to his legs but after discussion this morning he will use. Pulse ox is 97% on room air, respirations 20-24. Breathing status seems to be improving. Because patient was able to lay flat for the CAT scan of the brain, we will ask for VQ scan to be done today. Urinalysis and urine culture ordered. Anticipate discharge probably on Thursday. 06/05 patient had significant confusion overnight with episode of belligerence and walking into other patient's troponin. Received 2 doses of Haldol and one dose of Ativan with no improvement. Patient was initiated onset of cold 12.5 mg at bedtime with no improvement. Patient does not know a years male brought him to the hospital he [place]. Physical examination was concerning for decreased bowel sounds will order abdominal x-ray. Lower extremity Doppler to rule out blood clots as patient is unable to lay flat for the VQ scan ordered the CTA. Xanax discontinued as it is worsening with confusion. 06/06 patient is confusion is much better than yesterday. He is oriented to self and place. He does has some facial droop on the right noticed by the family members came to see the patient concerning for stroke. CT head was negative for any acute cranial process. Neurological exam was benign with no sensorimotor deficit. Neurology consulted for any further recommendations. Continue IV Lasix for next 24 hours. 06/07: Patient has been seen by neurology due to acute delirium and concern for right mouth droop which patient has chronically but seemed to be worse. Further ultrasound showed no hemodynamically significant stenosis in either internal carotid artery. Repeat CT of the brain showed stable exam with mild changes of chronic small vessel ischemic change, mild generalized atrophy and old right thalamic lacunar infarct. Cardiology has cleared the patient for discharge home today. Home insulin dose adjusted slightly due to hyperglycemia in the evenings. At the time of discharge BUN 42 and creatinine 1.02. Fierro catheter will be removed and monitor for urinary retention. Patient's voices concern regarding him falling at home and need for shower chair which can be obtained and daughter will make arrangements. Family initially declined home care but are agreeable at this time. senior clinical study manager to make arrangements. Patient will be discharged home today in stable condition. Discharge diagnoses: 1. Acute on chronic diastolic heart failure. 2. Diabetes mellitus type 2, uncontrolled with hyperglycemia and episodes of hypoglycemia. 3. Hypertensive cardiovascular disease. 4. Paroxysmal atrial fibrillation. 5. Chronic venous stasis of the lower extremities with yeast-type presentation. 6. Hyperlipidemia. 7. Benign prostatic hypertrophy. 8. Generalized anxiety disorder and panic attacks worsening since Thursday. 9. Acute delirium. Discharge plan: Home with [facility]NA Impression and plan of care have been directed as dictated by the signing physician. Farheen Knapp nurse practitioner acting as scribe for signing physician. Patient Condition at Discharge: Good Plan - Discharge Summary Discharge Rx Participant: No New Discharge Prescriptions: New amLODIPine [Norvasc] 5 mg PO BID #60 tab cloNIDine HCL [Catapres] 0.2 mg PO BID #60 tab Insuln Asp Prt/Insulin Aspart [NovoLOG MIX 70-30 VIAL] 60 unit SQ AC-BRKFST vial Insuln Asp Prt/Insulin Aspart [NovoLOG MIX 70-30 VIAL] 30 unit SQ AC-SUPPER vial Cephalexin [Keflex] 500 mg PO Q8HR #6 cap Continue Atorvastatin [Lipitor] 10 mg PO HS ALPRAZolam [Xanax] 0.25 mg PO HS Sertraline [Zoloft] 100 mg PO HS PRN PRN Reason: Anxiety Potassium Chloride [K-Tab ER] 10 meq PO DAILY Finasteride [Proscar] 5 mg PO DAILY Apixaban [Eliquis] 5 mg PO BID DULoxetine HCL [Cymbalta] 30 mg PO DAILY Carvedilol 25 mg PO BID Aspirin [Adult Low Dose Aspirin EC] 162 mg PO DAILY Loratadine 10 mg PO DAILY PRN PRN Reason: Allergy Symptoms Isosorbide Mononitrate ER [Imdur] 30 mg PO DAILY Changed Furosemide [Lasix] 40 mg PO BID #60 tab Discontinued Insuln Asp Prt/Insulin Aspart [NovoLOG MIX 70-30 VIAL] 50 unit SQ BID Insulin Glargine [Lantus] 30 unit SQ HS glyBURIDE/METFORMIN HCL [Glucovance 5-500 mg Tablet] 2 tab PO BID cloNIDine HCL [Catapres] 0.1 mg PO BID amLODIPine BESYLATE/BENAZEPRIL [Lotrel 5-20 mg Capsule] 1 cap PO BID Discharge Medication List ALPRAZolam [Xanax] 0.25 mg PO HS 05/05/16 [History] Atorvastatin [Lipitor] 10 mg PO HS 05/05/16 [History] Finasteride [Proscar] 5 mg PO DAILY 05/05/16 [History] Potassium Chloride [K-Tab ER] 10 meq PO DAILY 05/05/16 [History] Sertraline [Zoloft] 100 mg PO HS PRN 05/05/16 [History] Apixaban [Eliquis] 5 mg PO BID 06/03/18 [History] Aspirin [Adult Low Dose Aspirin EC] 162 mg PO DAILY 06/03/18 [History] Carvedilol 25 mg PO BID 06/03/18 [History] DULoxetine HCL [Cymbalta] 30 mg PO DAILY 06/03/18 [History] Isosorbide Mononitrate ER [Imdur] 30 mg PO DAILY 06/03/18 [History] Loratadine 10 mg PO DAILY PRN 06/03/18 [History] Cephalexin [Keflex] 500 mg PO Q8HR #6 cap 06/07/18 [Rx] Furosemide [Lasix] 40 mg PO BID #60 tab 06/07/18 [Rx] Insuln Asp Prt/Insulin Aspart [NovoLOG MIX 70-30 VIAL] 30 unit SQ AC-SUPPER vial 06/07/18 [Rx] Insuln Asp Prt/Insulin Aspart [NovoLOG MIX 70-30 VIAL] 60 unit SQ AC-BRKFST vial 06/07/18 [Rx] amLODIPine [Norvasc] 5 mg PO BID #60 tab 06/07/18 [Rx] cloNIDine HCL [Catapres] 0.2 mg PO BID #60 tab 06/07/18 [Rx] Follow up Appointment(s)/Referral(s): Miguel Mcnally MD [STAFF PHYSICIAN] - 06/14/18 3:45 pm Jason Colon MD [Primary Care Provider] - 06/10/18 11:00 am (With Elham BENDER) PÉREZA Visiting Nurse, [NON-STAFF] - As Needed Patient Instructions/Handouts: Heart Failure (DC), DASH Eating Plan (DC) Discharge Disposition: HOME WITH HOME HEALTH SERVICES
[2018-06-08] MEDS ORDERED: INSULN ASP PRT/INSULIN ASPART 100 UNIT/ML 10 ML VIAL SQ SCH (07:30)
== END 2018-06-07 16:00 | disposition home health service (06) | DRG 292 ==
LOC: EC 04:41 → 6SEL 07:09
PROVIDERS: ADMIT Family Medicine; ATTEND Family Medicine
DX: I11.0 Hypertensive heart disease with heart failure (principal); Z68.42 Body mass index [BMI] 45.0-49.9, adult; S37.30XA Unspecified injury of urethra, initial encounter; R31.9 Hematuria, unspecified; I50.33 Acute on chronic diastolic (congestive) heart failure; E66.01 Morbid (severe) obesity due to excess calories; E11.65 Type 2 diabetes mellitus with hyperglycemia; E11.649 Type 2 diabetes mellitus with hypoglycemia without coma; J44.9 Chronic obstructive pulmonary disease, unspecified; I08.1 Rheumatic disorders of both mitral and tricuspid valves; I48.0 Paroxysmal atrial fibrillation; I69.392 Facial weakness following cerebral infarction; R40.2142 Coma scale, eyes open, spontaneous, at arrival to emergency department; R40.2362 Coma scale, best motor response, obeys commands, at arrival to emergency department; R40.2252 Coma scale, best verbal response, oriented, at arrival to emergency department; E78.5 Hyperlipidemia, unspecified; I87.8 Other specified disorders of veins; N40.1 Benign prostatic hyperplasia with lower urinary tract symptoms; N39.498 Other specified urinary incontinence; F41.1 Generalized anxiety disorder; F41.0 Panic disorder [episodic paroxysmal anxiety]; F32.9 Major depressive disorder, single episode, unspecified; F41.9 Anxiety disorder, unspecified; Z79.01 Long term (current) use of anticoagulants; Z79.82 Long term (current) use of aspirin; Z79.4 Long term (current) use of insulin; Z79.899 Other long term (current) drug therapy; Z87.442 Personal history of urinary calculi; Z87.81 Personal history of (healed) traumatic fracture; Z87.730 Personal history of (corrected) cleft lip and palate; Z82.49 Family history of ischemic heart disease and other diseases of the circulatory system; Z81.2 Family history of tobacco abuse and dependence; W01.0XXA Fall on same level from slipping, tripping and stumbling without subsequent striking against object, initial encounter; X58.XXXA Exposure to other specified factors, initial encounter
CPT/HCPCS: 36415; 70450; 71045; 74018; 80048; 80053; 81001; 82550; 82553; 83036; 83735; 83880; 84484; 85025; 85027; 85379; 85610; 85730; 87077; 87086; 87186; 93005; 93306; 93880; 93970; 95819; 96372; 96374; 99291

== ENCOUNTER → 2018-10-11 | Outpatient (CLI) | payer MEDICARE ==
--- NOTE | 2018-10-11 13:52 | US ---
EXAMINATION TYPE: US kidneys/renal and bladder DATE OF EXAM: 10/11/2018 COMPARISON: NONE CLINICAL HISTORY: N20.0 kidney Stone. Hematuria, passed two stones per patient EXAM MEASUREMENTS: Right Kidney: 11.6 x 6.3 x 5.7 cm Left Kidney: 11.7 x 5.8 x 6.7 cm Right Kidney: No hydronephrosis or masses seen. Possible echogenic foci measuring 0.8 cm at the lower pole Left Kidney: No hydronephrosis or masses seen Bladder: wall appears thickened Bilateral Jets seen: Right jet visualized Kidneys show normal cortical medullary differentiation. IMPRESSION: Exam is limited. Possible right-sided nephrolithiasis, no hydronephrosis. Bladder wall thickening cou ld be due to lack of distention, correlate to exclude cystitis.
== END ==
LOC: RADUSWWP 13:00
PROVIDERS: ATTEND Internal Medicine Geriatric Medicine
DX: N32.89 Other specified disorders of bladder (principal)
CPT/HCPCS: 76770

== ENCOUNTER → 2018-12-11 | Outpatient (CLI) | payer MEDICARE ==
[2018-12-11 09:10] LABS: ALT 34 U/L (21-72); AST 24 U/L (17-59); Albumin 3.9 g/dL (3.5-5.0); Albumin/Globulin Ratio 1.2; Alkaline Phosphatase 93 U/L (38-126); Anion Gap 7 mmol/L; Blood Urea Nitrogen 18 mg/dL (9-20); Calcium 8.9 mg/dL (8.4-10.2); Carbon Dioxide 30 mmol/L (22-30); Chloride 108 mmol/L (98-107); Globulin 3.2 g/dL; Glucose 111 mg/dL (74-99); Sodium 145 mmol/L (137-145); Total Bilirubin 0.6 mg/dL (0.2-1.3); Total Protein 7.1 g/dL (6.3-8.2)
[2018-12-11 09:50] LABS: Anisocytosis Slight; Basophils # (A) 0.1 k/uL (0-0.2); Basophils % (A) 1 %; Eosinophils # (A) 0.4 k/uL (0-0.7); Eosinophils % (A) 5 %; HCT 46.9 % (39.0-53.0); HGB 14.6 gm/dL (13.0-17.5); Lymphocytes # (A) 1.1 k/uL (1.0-4.8); Lymphocytes % (A) 15 %; MCHC 31.2 g/dL (31.0-37.0); MCV 89.6 fL (80.0-100.0); Mean Platelet Volume 7.4; Monocytes # (A) 0.5 k/uL (0-1.0); Monocytes % (A) 7 %; Neutrophils # (A) 5.5 k/uL (1.3-7.7); Neutrophils % (A) 71 %; Platelet Count 162 k/uL (150-450); RBC 5.24 m/uL (4.30-5.90); RDW 16.5 % (11.5-15.5); WBC 7.8 k/uL (3.8-10.6)
[2018-12-11 17:09] LABS: LDL Cholesterol,Calculated 80.4 mg/dL (0.0-131.0); VLDL Calculation 13.6 mg/dL (5.00-40.00)
[2018-12-11 17:17] LABS: T4, Free (Free Thyroxine) 1.1 ng/dL (0.80-1.80)
[2018-12-11 18:52] LABS: Hemoglobin A1C 8.5 % (4.0-6.0)
== END ==
LOC: LABWHC1 08:22
PROVIDERS: ATTEND Internal Medicine Geriatric Medicine
DX: I50.22 Chronic systolic (congestive) heart failure (principal); E11.65 Type 2 diabetes mellitus with hyperglycemia; N18.2 Chronic kidney disease, stage 2 (mild); I48.91 Unspecified atrial fibrillation; E11.22 Type 2 diabetes mellitus with diabetic chronic kidney disease
CPT/HCPCS: 36415; 80053; 80061; 82043; 82570; 83036; 84439; 84443; 85025

== ENCOUNTER → 2018-12-11 | Outpatient (CLI) | payer MEDICARE | END | disposition home or self-care (01) | LOC: LABPAT 08:19 | PROVIDERS: ATTEND Internal Medicine Interventional Cardiology | DX: Z53.9 Procedure and treatment not carried out, unspecified reason (principal) ==

== ENCOUNTER 2018-12-13 06:23 | Day surgery (SDC) | payer MEDICARE ==
[2018-12-08 15:24] VITALS: BMI 43.9
[2018-12-13] MEDS ORDERED: ATORVASTATIN 80 MG TAB PO STA (06:27)
[2018-12-13] MEDS ORDERED: ASPIRIN 325 MG TAB PO STA (06:27)
[2018-12-13] MEDS ORDERED: SODIUM CHLORIDE 0.9% 1,000 ML in EMPTY BAG 1 BAG IV ONE (06:27)
[2018-12-13] MEDS ORDERED: ALPRAZolam 0.5 MG TAB PO PRN (06:27)
[2018-12-13] MEDS ORDERED: ALPRAZolam 0.25 MG TAB PO PRN (06:27)
[2018-12-13] MEDS ORDERED: NITROGLYCERIN SL TABS 0.4 MG TAB SUBLINGUAL PRN (06:27)
[2018-12-13 06:54] LABS: Glucose,Whole Blood 238 mg/dL (75-99)
[2018-12-13] MEDS ORDERED: INSULIN ASPART 100 UNIT/ML 1 ML 10 ML VIAL SQ ONE ×2 (06:55→10:24)
[2018-12-13] MEDS ORDERED: hydrALAZINE HCL 20 MG/ML 1 ML VIAL IVP STA (07:02)
[2018-12-13 07:03] LABS: Anisocytosis Slight; Basophils # (A) 0.1 k/uL (0-0.2); Basophils % (A) 1 %; Eosinophils # (A) 0.3 k/uL (0-0.7); Eosinophils % (A) 4 %; HCT 45.8 % (39.0-53.0); HGB 14.9 gm/dL (13.0-17.5); Lymphocytes # (A) 0.9 k/uL (1.0-4.8); Lymphocytes % (A) 13 %; MCH 28.8 pg (25.0-35.0); MCHC 32.5 g/dL (31.0-37.0); MCV 88.7 fL (80.0-100.0); Mean Platelet Volume 8.3; Monocytes # (A) 0.5 k/uL (0-1.0); Monocytes % (A) 7 %; Neutrophils # (A) 5.3 k/uL (1.3-7.7); Neutrophils % (A) 74 %; Platelet Count 156 k/uL (150-450); RBC 5.17 m/uL (4.30-5.90); RDW 16.5 % (11.5-15.5); WBC 7.2 k/uL (3.8-10.6)
[2018-12-13 07:28] VITALS: PULSE 76; RESP 20; TEMP 98.3
[2018-12-13] MEDS ORDERED: fentaNYL (PF) 50 MCG/ML 2 ML AMP ONE (07:38)
[2018-12-13] MEDS ORDERED: VERAPAMIL 2.5 MG/ML 2 ML AMP ONE (07:38)
[2018-12-13] MEDS ORDERED: LIDOCAINE 1% INJ 10MG/ML (20 ML MDV) ONE (07:38)
[2018-12-13] MEDS ORDERED: HEPARIN SODIUM 1,000 UN/ML (10ML VL) ONE (07:38)
[2018-12-13] MEDS ORDERED: MIDAZOLAM 2 MG/2 ML VIAL IVP ONE ×2 (07:40→08:02)
[2018-12-13 07:48] LABS: Anion Gap 4 mmol/L; Blood Urea Nitrogen 16 mg/dL (9-20); Calcium 8.5 mg/dL (8.4-10.2); Carbon Dioxide 29 mmol/L (22-30); Chloride 108 mmol/L (98-107); Glucose 263 mg/dL (74-99); Potassium 3.9 mmol/L (3.5-5.1); Sodium 141 mmol/L (137-145)
[2018-12-13] MEDS ORDERED: LIDOCAINE 1% (PF) 10MG/ML VIAL SQ ONE (08:01)
[2018-12-13] MEDS ORDERED: VERAPAMIL SYRINGE (5 MG/10 ML) INTRAARTER ONE (08:04)
[2018-12-13] MEDS ORDERED: hydrALAZINE HCL 20 MG/ML 1 ML VIAL ONE (08:07)
[2018-12-13] MEDS ORDERED: METOPROLOL TARTRATE 5 MG/5 ML VIAL IVP ONE ×2 (08:07→08:11)
[2018-12-13] MEDS ORDERED: FUROSEMIDE 10 MG/ML 4 ML VIAL ONE ×2 (08:07→08:46)
[2018-12-13] MEDS ORDERED: hydrALAZINE HCL 20 MG/ML 1 ML VIAL IVP ONE (08:11)
[2018-12-13] MEDS ORDERED: FUROSEMIDE 10 MG/ML 4 ML VIAL IV ONE ×2 (08:11→08:42)
[2018-12-13] MEDS ORDERED: MIDAZOLAM 2 MG/2 ML VIAL IV ONE (08:20)
[2018-12-13] MEDS ORDERED: fentaNYL (PF) 50 MCG/ML 2 ML AMP IVP ONE (08:40)
[2018-12-13] MEDS ORDERED: hydrALAZINE HCL 20 MG/ML 1 ML VIAL IV ONE (08:42)
[2018-12-13] MEDS ORDERED: MORPHINE SULFATE 4 MG/ML SYRINGE ONE (08:50)
[2018-12-13] MEDS ORDERED: FUROSEMIDE 10 MG/ML 4 ML VIAL IVP ONE (08:54)
[2018-12-13] MEDS ORDERED: RX INFO: IV CONTRAST WAS GIVEN 1 EACH MISC MISCELLANE PRN (08:55)
[2018-12-13] MEDS ORDERED: SODIUM CHLORIDE 0.9% 1,000 ML IV SCH (09:00)
[2018-12-13] MEDS ORDERED: IOPAMIDOL-370 100ML BTL INJ ONE (09:03)
[2018-12-13] MEDS ORDERED: IOPAMIDOL-370 125ML BTL INJ ONE (09:03)
[2018-12-13 10:09] LABS: Glucose,Whole Blood 250 mg/dL (75-99)
[2018-12-13] MEDS ORDERED: LOSARTAN 50 MG TAB PO STA (11:24)
[2018-12-13] MEDS ORDERED: amLODIPine 10 MG TAB PO STA (11:24)
[2018-12-13] MEDS ORDERED: ISOSORBIDE MONONITRATE ER 30 MG TAB.ER.24H PO STA (11:25)
[2018-12-13] MEDS ORDERED: cloNIDine HCL 0.2 MG TAB PO SCH (11:30)
--- NOTE | 2018-12-13 13:56 | LTR ---
DATE OF SERVICE: 12/13/2018 RE: Tucker Burak. Dear Dr. Colon; Mr. Burak Ceballos underwent a heart catheterization that revealed severe disease involving the right coronary artery which is heavily calcified as well as intermediate to severe disease involving the LAD. He will be scheduled to undergo atherectomy and stenting of the right coronary artery in the next few weeks. Thank you for allowing us to participate in his care and please do not hesitate to call with questions or concern. Sincerely, MD PIERCE Pena / ALFRED: [id number] /
--- NOTE | 2018-12-13 14:11 | CC ---
CARDIAC CATHETERIZATION REPORT DATE OF SERVICE: 12/13/2018 PERFORMING PHYSICIAN: Miguel Mcnally MD, It Risk Advisor. PROCEDURE PERFORMED: 1. Selective right and left coronary angiogram. 2. Fractional flow reserve FFR of the right coronary artery. INDICATION: This is a pleasant 78-year-old male patient with multiple risk factors for coronary artery disease who was experiencing exertional dyspnea concerning for angina. Maximized medical treatment was tried and patient continues to be symptomatic. Because of that, a heart catheterization was advised. APPROACH: 1. Right radial artery. 2. Right common femoral artery. COMPLICATION: Acute respiratory distress require Ventimask as well as IV diuretics. LEVEL OF SEDATION: Moderate with sedation length of 47 minutes. PROCEDURE DESCRIPTION: After obtaining an informed consent, the patient was brought to the cardiac general labor. I accessed the right radial artery using micropuncture technique, the micropuncture wire passed easily, then I placed a 6-[place] sheath in the right radial artery. I attempted engaging the right coronary artery from the right radial approach and I was unable and because of that I decided to the access the right femoral artery. The patient does have extreme tortuosity of the right subclavian artery. The right common femoral artery was cannulated using micropuncture technique, the micropuncture wire passed easily, then I placed a 6-[place] sheath in the right common femoral artery. After that, I did selective right and left coronary angiogram using JR4 and JL4 catheters. After that, I did FFR of the right coronary artery. Please see a separate paragraph for that. SELECTIVE CORONARY ANGIOGRAM: 1. The right coronary artery is a large caliber vessel and it is a dominant vessel. The RCA is extremely calcified. The proximal RCA has mild disease only. The mid RCA has a lesion, appeared to be in the range of 60% to 70%. IFR was performed and came in to be at 0.67, which is ischemic. The RCA distally has mild disease only. It bifurcates into PDA and PLV branches, both have mild disease only. 2. The left main is calcified with mild disease only in the range of 30%. It bifurcates into the left circumflex and left anterior descending artery. 3. The left circumflex is a large caliber vessel. The left circumflex is chronically occluded in the proximal portion right after the takeoff of the first OM branch which has mild to moderate diffuse disease. 4. The LAD: The proximal LAD by the bifurcation of a large diagonal branch has a lesion, appeared to be in the range of 60%. The lesion appears to be in the range of 70%. The LAD by that area is extremely calcified. The mid LAD appeared to have another lesion in the range of 60%. FFR OF THE RCA: ACT was performed and was therapeutic. After zeroing the Doppler wire and equalizing between the Doppler wire and the guiding catheter, we did an IFR without adenosine infusion and the FFR came in to be at 0.67 which is ischemic. CONCLUSION: 1. Heavily calcified right and left coronary systems. 2. Severe disease involving the mid right coronary artery. 3. 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 4. Intermediate to severe disease involving the proximal LAD and intermediate disease involving the mid LAD. POSTPROCEDURE MANAGEMENT: 1. Maximize medical treatment at this point. 2. The patient will be brought back to undergo an atherectomy and stenting of the right coronary artery. MMODL / IJN: [id number] /
[2018-12-13 17:32] VITALS: BP 144/68
== END 2018-12-13 16:50 | disposition home or self-care (01) ==
LOC: CATHCVL 06:23
PROVIDERS: ATTEND Internal Medicine Interventional Cardiology
DX: I25.110 Atherosclerotic heart disease of native coronary artery with unstable angina pectoris (principal); I25.84 Coronary atherosclerosis due to calcified coronary lesion; I11.0 Hypertensive heart disease with heart failure; I50.32 Chronic diastolic (congestive) heart failure; I25.82 Chronic total occlusion of coronary artery; R06.03 Acute respiratory distress; I77.1 Stricture of artery; I48.0 Paroxysmal atrial fibrillation; Z79.01 Long term (current) use of anticoagulants; E78.5 Hyperlipidemia, unspecified; E11.9 Type 2 diabetes mellitus without complications; Z82.49 Family history of ischemic heart disease and other diseases of the circulatory system; E66.3 Overweight; Z68.41 Body mass index [BMI] 40.0-44.9, adult; Z79.82 Long term (current) use of aspirin; Z79.4 Long term (current) use of insulin; Z79.899 Other long term (current) drug therapy
CPT/HCPCS: 94660; 93571; 93454; 85347; 80048; 85025; C1760; C1887; C1769 ×4; C1894 ×2; J2250; J0360; J1940; J3010; J2001; J1644; Q9967 ×2

== ENCOUNTER → 2019-01-04 | Outpatient (CLI) | payer MEDICARE ==
[2019-01-04 15:15] LABS: Anisocytosis Slight; HCT 43.5 % (39.0-53.0); MCH 28.6 pg (25.0-35.0); MCHC 32.1 g/dL (31.0-37.0); MCV 89.1 fL (80.0-100.0); Mean Platelet Volume 8.1; Platelet Count 145 k/uL (150-450); RBC 4.88 m/uL (4.30-5.90); RDW 16.5 % (11.5-15.5); WBC 7.5 k/uL (3.8-10.6)
== END | disposition home or self-care (01) ==
LOC: LABPAT 14:09
PROVIDERS: ATTEND Internal Medicine Interventional Cardiology
DX: Z01.812 Encounter for preprocedural laboratory examination (principal); I10 Essential (primary) hypertension; I25.10 Atherosclerotic heart disease of native coronary artery without angina pectoris; I48.0 Paroxysmal atrial fibrillation; E78.1 Pure hyperglyceridemia
CPT/HCPCS: 36415; 80051; 82565; 84520; 85027

== ENCOUNTER 2019-01-17 06:33 | Inpatient (IN) | payer MEDICARE ==
[~2019-01-17 06:33] MED LIST: ALPRAZolam 0.25 MG TAB PO PRN; ALPRAZolam 0.5 MG TAB PO PRN; ASPIRIN 325 MG TAB PO STA; ATORVASTATIN 80 MG TAB PO STA; NITROGLYCERIN SL TABS 0.4 MG TAB SUBLINGUAL PRN; SODIUM CHLORIDE 0.9% 1,000 ML in EMPTY BAG 1 BAG IV ONE
[2019-01-17 07:16] LABS: Glucose,Whole Blood 142 mg/dL (75-99)
[2019-01-17] MEDS ORDERED: ROCURONIUM BROMIDE 10 MG/ML 10 ML VIAL IV ONE (10:45)
[2019-01-17] MEDS ORDERED: ATROPINE SULFATE 0.4 MG/ML 1 ML VIAL ONE (10:45)
[2019-01-17] MEDS ORDERED: LIDOCAINE 1% INJ 10MG/ML (20 ML MDV) ONE ×2 (10:45→10:48)
[2019-01-17] MEDS ORDERED: VECURONIUM 10 MG VIAL IV ONE (10:45)
[2019-01-17] MEDS ORDERED: SUCCINYLCHOLINE CHLORIDE 100 MG/5 ML SYR IV ONE (10:45)
[2019-01-17] MEDS ORDERED: PROPOFOL 10 MG/ML 20 ML VIAL IV ONE (10:45)
[2019-01-17] MEDS ORDERED: fentaNYL (PF) 50 MCG/ML 2 ML AMP ONE (10:45)
[2019-01-17] MEDS ORDERED: MIDAZOLAM 2 MG/2 ML VIAL ONE (10:45)
[2019-01-17] MEDS ORDERED: LIDOCAINE 1% INJ 10MG/ML (20 ML MDV) SQ ONE (11:43)
[2019-01-17] MEDS ORDERED: BIVALIRUDIN BOLUS 250 MG/50 ML IV ONE (11:50)
[2019-01-17] MEDS ORDERED: BIVALIRUDIN 250 MG in SODIUM CHLORIDE 0.9% 50 ML IV ONE ×2 (11:50→12:15)
[2019-01-17] MEDS ORDERED: CLOPIDOGREL 75 MG TAB ONE (11:58)
[2019-01-17] MEDS ORDERED: TICAGRELOR 90 MG TAB ONE (12:03)
[2019-01-17] MEDS ORDERED: TICAGRELOR 90 MG TAB NG-TUBE ONE (12:04)
[2019-01-17] MEDS ORDERED: IOPAMIDOL-370 125ML BTL INJ ONE (12:25)
[2019-01-17] MEDS ORDERED: MAG HYDROX/AL HYDROX/SIMETH 30 ML CUP PO PRN (12:35)
[2019-01-17] MEDS ORDERED: NITROGLYCERIN SL TABS 0.4 MG TAB SUBLINGUAL PRN (12:35)
[2019-01-17] MEDS ORDERED: ZOLPIDEM 5 MG TAB PO PRN (12:35)
[2019-01-17] MEDS ORDERED: RX INFO: IV CONTRAST WAS GIVEN 1 EACH MISC MISCELLANE PRN (12:35)
[2019-01-17] MEDS ORDERED: ATROPINE SULFATE 0.1 MG/ML 10ML SYRINGE IV PRN (12:35)
[2019-01-17] MEDS ORDERED: SODIUM CHLORIDE 0.9% 1,000 ML IV SCH (12:45)
--- NOTE | 2019-01-17 13:00 | LTR ---
January 17, 2019 Re: Burak Ceballos Dear Dr. Colon: Mr. Burak Ceballos underwent successful balloon angioplasty and stenting of both the right coronary artery and LAD. Thank you for allowing us to participate in his care and please do not hesitate to call for question or concern. Sincerely, MD PIERCE Pena / ALFRED: [id number] /
[2019-01-17 13:21] LABS: Glucose,Whole Blood 108 mg/dL (75-99)
[2019-01-17] MEDS: PROPOFOL 1,000 MG in EMPTY BAG 1 BAG IV SCH ×3 (13:40→19:40)
--- NOTE | 2019-01-17 13:44 | P.CNPUL ---
History of Present Illness Consult date: 01/17/19 Requesting physician: Miguel Mcnally Reason for consult: other Chief complaint: Coronary artery disease, status post PCI and stenting History of present illness: This is a 78-year-old white male patient of Dr. Colon, with past medical history of hypertension, morbid obesity, chronic congestive heart failure with diastolic dysfunction, diabetes mellitus type 2, paroxysmal atrial fibrillation , previous history of TIA, BPH, chronic lower extremity edema with history of venous stasis ulcer, generalized anxiety disorder and panic attacks. Patient had been having symptoms of increasing exertional dyspnea, concerning for angina. On 12/13/2018 patient underwent heart catheterization by Dr. Chamberlain, and was found to have heavily calcified right and left coronary systems, severe disease involving the mid RCA, chronic total occlusion of the left circumflex coronary artery, and intermediate to severe disease involving the proximal LAD and intermediate disease involving the mid LAD. The day on 01/17/2019 patient was brought back for elective atherectomy and stenting of the LAD and the RCA. Prior to the procedure patient was experiencing severe anxiety, he was unable to lie flat related to severe anxiety, and difficulty breathing. Patient was electively intubated, sedated for the procedure, and he underwent successful stenting of the LAD and RCA. Following the procedure patient was transferred to the intensive care unit, and this consult was initiated. Review of Systems All systems: negative Constitutional: Denies chills, Denies fever Eyes: denies blurred vision, denies pain Ears, nose, mouth and throat: Denies headache, Denies sore throat Cardiovascular: Reports decreased exercise tolerance, Reports dyspnea on exertion, Reports edema, Reports high blood pressure, Reports leg edema, Reports orthopnea, Denies chest pain, Denies shortness of breath Respiratory: Denies cough Gastrointestinal: Denies abdominal pain, Denies diarrhea, Denies nausea, Denies vomiting Musculoskeletal: Denies myalgias Integumentary: Denies pruritus, Denies rash Neurological: Denies numbness, Denies weakness Psychiatric: Denies anxiety, Denies depression Endocrine: Denies fatigue, Denies weight change Past Medical History Past Medical History: Atrial Fibrillation, Heart Failure, Diabetes Mellitus, Hyperlipidemia, Hypertension, Osteoarthritis (OA), Pneumonia Additional Past Medical History / Comment(s): edema jeffrey lower legs that comes and goes,hx kidney stones, hx migraines, Pneumonia 2018 History of Any Multi-Drug Resistant Organisms: None Reported Past Surgical History: Heart Catheterization, Orthopedic Surgery, Tonsillectomy Additional Past Surgical History / Comment(s): left shoulder surgery, surgery jeffrey knees, rt hand surgery for fx fingers from work injury, left hand surgery fx finger from sports injury, jeffrey cataracts, Past Anesthesia/Blood Transfusion Reactions: No Reported Reaction Past Psychological History: Anxiety, Panic Disorder Additional Psychological History / Comment(s): panic attacks Smoking Status: Never smoker Past Alcohol Use History: None Reported Past Drug Use History: None Reported - Past Family History Father Family Medical History: No Reported History Additional Family Medical History / Comment(s): Father was a heavy smoker. He of a IA at the age of 42yrs. Mother Family Medical History: Cancer Additional Family Medical History / Comment(s): . Medications and Allergies Home Medications Medication Instructions Recorded Confirmed Type ALPRAZolam [Xanax] 0.25 mg PO HS 05/05/16 01/17/19 History Atorvastatin [Lipitor] 10 mg PO HS 05/05/16 01/17/19 History Finasteride [Proscar] 5 mg PO DAILY 05/05/16 01/17/19 History Potassium Chloride [K-Tab ER] 10 meq PO DAILY 05/05/16 01/17/19 History Apixaban [Eliquis] 5 mg PO BID 06/03/18 01/17/19 History Aspirin [Adult Low Dose Aspirin EC] 81 mg PO DAILY 06/03/18 01/17/19 History Carvedilol 25 mg PO BID 06/03/18 01/17/19 History DULoxetine HCL [Cymbalta] 30 mg PO DAILY 06/03/18 01/17/19 History Isosorbide Mononitrate ER [Imdur] 30 mg PO DAILY 06/03/18 01/17/19 History cloNIDine HCL [Catapres] 0.2 mg PO BID #60 tab 06/07/18 01/17/19 Rx Furosemide [Lasix] 40 mg PO 0800,1200 12/08/18 01/17/19 History Insuln Asp Prt/Insulin Aspart 35 unit SQ AC-SUPPER PRN 12/08/18 01/17/19 History [NovoLOG MIX 70-30 VIAL] Insuln Asp Prt/Insulin Aspart 65 unit SQ AC-BRKFST 12/08/18 01/17/19 History [NovoLOG MIX 70-30 VIAL] Sertraline HCl [Zoloft] 100 mg PO HS 12/08/18 01/17/19 History amLODIPine [Norvasc] 10 mg PO DAILY 12/08/18 01/17/19 History Insulin Degludec [Tresiba 30 units SQ HS 01/13/19 01/17/19 History Flextouch U-100] Losartan Potassium [Cozaar] 100 mg PO DAILY 01/13/19 01/17/19 History Allergies Allergy/AdvReac Type Severity Reaction Status Date / Time No Known Allergies Allergy Verified 01/13/19 10:26 Physical Exam Vitals: Vital Signs Temp Pulse Resp BP Pulse Ox 01/17/19 06:55 97.9 F 56 L 20 188/82 98 Intake and Output 01/16/19 01/17/19 01/17/19 22:59 06:59 14:59 Intake Total 750 Balance 750 Intake: IV 750 GENERAL EXAM: 78-year-old morbidly obese white male, intubated, sedated on mechanical ventilator, comfortable in no apparent distress. HEAD: Normocephalic/atraumatic. EYES: Normal reaction of pupils, equal size. Conjunctiva pink, sclera white. NOSE: Clear with pink turbinates. THROAT: No erythema or exudates. NECK: No masses, no JVD, no thyroid enlargement, no adenopathy. CHEST: No chest wall deformity. Symmetrical expansion. LUNGS: Equal air entry with no crackles, wheeze, rhonchi or dullness. CVS: Regular rate and rhythm, normal S1 and S2, no gallops, no murmurs, no rubs ABDOMEN: Soft, obese, nontender. No hepatosplenomegaly, normal bowel sounds, no guarding or rigidity. EXTREMITIES: No clubbing, no edema, no cyanosis, 2+ pulses and upper and lower extremities. MUSCULOSKELETAL: Muscle strength and tone normal. Right femoral arterial puncture site is clean dry and intact, there is a FemoStop currently on with a pressure of 52 mmHg, distal pulses are intact, no signs of hematoma. SPINE: No scoliosis or deformity SKIN: No rashes CENTRAL NERVOUS SYSTEM: Sedated, intubated. No focal deficits, tone is normal in all 4 extremities. Results - Laboratory Findings Abnormal lab findings: Abnormal Labs 01/17/19 01/17/19 06:58 13:20 POC Glucose (mg/dL) 142 H 108 H Assessment and Plan Plan: Assessment: #1. Elective intubation and placement on mechanical ventilator for the heart catheterization and stenting, in view of severe anxiety, and difficulty breathing and inability to lie flat. We are consulted for routine ventilator management and ICU management #2. Coronary artery disease, status post atherectomy and stenting of the LAD and RCA, postop day 0 #3. Hypertensive urgency #4. Morbid obesity, with a BMI of 45.2 #5. History of chronic congestive heart failure with diastolic dysfunction #6. Paroxysmal atrial fibrillation #7. Diabetes mellitus type 2 #8. Hypertension, hyperlipidemia #9. BPH #10. Chronic lower extremity edema is truly of venous stasis ulcer Plan: Patient is sedated, and intubated on mechanical ventilator, current settings are assist-control mode of ventilation with a rate of 14, tidal volume 600, FiO2 100% and PEEP of 5. We'll obtain chest x-ray, a blood gas. We'll start Cleviprex drip for blood pressure management. We'll proceed with sedation holiday, and spontaneous breathing trials once we review the results of the blood gas in the chest x-ray and the blood work. GI and DVT prophylaxis. We' ll continue to follow I performed a history & physical examination of the patient and discussed their management with my nurse practitioner, Tori Casarez. I reviewed the nurse practitioner's note and agree with the documented findings and plan of care. Lung sounds are clear lung sounds. The findings and the impression was discussed with the patient. I attest to the documentation by the nurse practitioner. Time with Patient: Greater than 30
[2019-01-17] MEDS: CLEVIDIPINE BUTYRATE 25 MG in EMPTY BAG 1 BAG IV SCH ×4 (13:45→23:33)
[2019-01-17] MEDS ORDERED: NALOXONE 0.4 MG/ML 1 ML VIAL IV PRN (13:52)
[2019-01-17 13:55] LABS: ABG Base Excess 3.9 mmol/L; ABG HCO3 28 mmol/L (21-25); ABG Oxygen Saturation 99.9 % (94-97); ABG PCO2 44 mmHg (35-45); ABG PH 7.42 (7.35-7.45); ABG PO2 309 mmHg (83-108); ABG TCO2 30 mmol/L (19-24)
[2019-01-17] MEDS ORDERED: FUROSEMIDE 10 MG/ML 4 ML VIAL IV STA (14:02)
--- NOTE | 2019-01-17 14:02 | XR ---
EXAMINATION TYPE: XR chest 1V portable DATE OF EXAM: 01/17/2019 COMPARISON: 06/03/2018 HISTORY: Tube placement TECHNIQUE: Single frontal view of the chest is obtained. FINDINGS: ET tube 2. Swimmer's above nghia and NG tube in the left upper quadrant. Bilateral consol idation small effusion. Left perihilar consolidation. Diffuse interstitial pattern. IMPRESSION: 1. Bilateral consolidation and pleural effusion correlate for CHF versus pneumonia. There is an intra -articular increasing consolidation left upper lobe and perihilar region.
[2019-01-17 14:10] LABS: Anisocytosis Slight; HCT 42.5 % (39.0-53.0); HGB 13.8 gm/dL (13.0-17.5); MCH 29.3 pg (25.0-35.0); MCHC 32.5 g/dL (31.0-37.0); MCV 90.1 fL (80.0-100.0); Mean Platelet Volume 7.4; Platelet Count 141 k/uL (150-450); RBC 4.72 m/uL (4.30-5.90); RDW 16.4 % (11.5-15.5); WBC 5.6 k/uL (3.8-10.6)
[2019-01-17 14:40] LABS: Anion Gap 5 mmol/L; Blood Urea Nitrogen 17 mg/dL (9-20); Calcium 8.4 mg/dL (8.4-10.2); Carbon Dioxide 28 mmol/L (22-30); Chloride 110 mmol/L (98-107); Glucose 109 mg/dL (74-99); Sodium 143 mmol/L (137-145)
[2019-01-17] MEDS ORDERED: ATROPINE SULFATE 0.1 MG/ML 10ML SYRINGE IV STA (14:59)
[2019-01-17] MEDS ORDERED: IPRATROPIUM-ALBUTEROL 3 ML NEB INHALATION SCH (16:00)
[2019-01-17] MEDS ORDERED: CARVEDILOL 12.5 MG TAB PO SCH (17:30)
--- NOTE | 2019-01-17 20:02 | PTCA ---
PERCUTANEOUSTRANS CORORONARY ANGIOGRAPHY DATE OF SERVICE: 01/17/2019 PERFORMING PHYSICIAN: Miguel Mcnally MD, environmental studies department chair. PROCEDURES PERFORMED: 1. Successful stenting of the mid right coronary artery using a 4.0 x 23 mm Xience drug-eluting stent with an excellent angiographic result and reduction of stenosis from 70% to 0%. 2. Successful stenting of the proximal left anterior descending artery using a 3.0 x 23 mm Xience drug-eluting stent with an excellent angiographic result and reduction of stenosis from 80% to 0%. INDICATION: This is a pleasant 78-year-old gentleman with a history of diabetes, hypertension, dyslipidemia and obesity who was experiencing progressive exertional dyspnea concerning for angina equivalent. He underwent heart catheterization a few weeks ago that revealed severe disease involving the mid right coronary artery and severe disease involving the proximal left anterior descending artery. The patient is morbidly obese and is not a candidate to undergo coronary artery bypass grafting. Because of that, he was brought today to undergo PCI of the RCA and LAD under general anesthesia. The patient cannot lie flat in bed because of the abdominal obesity. APPROACH: Right common femoral artery. COMPLICATIONS: None. LEVEL OF SEDATION: Moderate, with sedation length of 48 minutes. PROCEDURE DESCRIPTION: After obtaining informed consent, the patient was brought to the cardiac crime laboratory analyst. The right common femoral artery was cannulated using micropuncture technique. The micropuncture wire passed easily. Then I placed a 6-Russian sheath in the right common femoral artery. After that, anticoagulation was initiated using Angiomax. After that I engaged the right coronary artery using JR4 guide. A run-through wire was used to wire the right coronary artery. After that I did balloon angioplasty of the mid RCA using a 3.5 x 12 mm balloon before I deployed a 4.0 x 23 mm Xience drug-eluting stent where the stent was positioned under fluoroscopic guidance and deployed under its nominal pressure with the following angiogram showing excellent angiographic results. For the LAD lesion, I engaged the left main using JL-4 guide. The same run-through wire used for the right was used for wiring the LAD. After that I did initially balloon angioplasty using a 2.5 x 12 mm semi-compliant balloon, and I attempted to advance a 3.0 x 23 mm Xience drug-eluting stent, but the stent would not cross the lesion, in spite of using GuideLiner as adjunctive to the wire. After that I did balloon LAD again using this time a 3.0 mm NC balloon. After that I was able to advance the stent to the proximal LAD where the stent was positioned under fluoroscopic guidance and deployed under 12 atmospheres for 20 seconds with the following angiogram showing good angiographic results. The procedure was completed without any complications. POST-PROCEDURE MANAGEMENT: 1. Dual anti-platelet therapy. 2. Risk factor modifications. 3. Follow up with the patient. PIERCE / TAMIEN: [id number] /
[2019-01-17 20:44] LABS: Glucose,Whole Blood 83 mg/dL (75-99)
[2019-01-17 20:58] LABS: ABG Base Excess 5.9 mmol/L; ABG HCO3 30 mmol/L (21-25); ABG Oxygen Saturation 96.6 % (94-97); ABG PCO2 45 mmHg (35-45); ABG PH 7.44 (7.35-7.45); ABG PO2 79 mmHg (83-108); ABG TCO2 31 mmol/L (19-24)
[2019-01-17] MEDS ORDERED: CHLORHEXIDINE GLUCONATE 15 ML CUP MUCOUS MEM SCH (21:00)
[2019-01-17] MEDS: ALPRAZolam 0.25 MG TAB PO SCH (21:53)
[2019-01-17] MEDS: SERTRALINE 100 MG TAB PO SCH (21:53)
[2019-01-17] MEDS: cloNIDine HCL 0.2 MG TAB PO SCH (23:32)
[2019-01-17] MEDS: ATORVASTATIN 10 MG TAB PO SCH (23:32)
[2019-01-17] MEDS: INSULIN DETEMIR (LEVEMIR) 100 UNIT/ML SYR SQ SCH (23:43)
[2019-01-18] MEDS: CLEVIDIPINE BUTYRATE 25 MG in EMPTY BAG 1 BAG IV SCH ×9 (00:48→22:31)
[2019-01-18 03:57] LABS: Glucose,Whole Blood 195 mg/dL (75-99)
[2019-01-18 05:28] LABS: Anisocytosis Slight; Basophils # (A) 0.1 k/uL (0-0.2); Basophils % (A) 1 %; Eosinophils # (A) 0.3 k/uL (0-0.7); Eosinophils % (A) 2 %; HGB 15.5 gm/dL (13.0-17.5); Lymphocytes # (A) 0.7 k/uL (1.0-4.8); Lymphocytes % (A) 6 %; MCH 28.1 pg (25.0-35.0); MCV 90.9 fL (80.0-100.0); Monocytes # (A) 0.8 k/uL (0-1.0); Monocytes % (A) 7 %; Neutrophils # (A) 9.6 k/uL (1.3-7.7); Neutrophils % (A) 83 %; Platelet Count 167 k/uL (150-450); RDW 16.6 % (11.5-15.5); WBC 11.6 k/uL (3.8-10.6)
[2019-01-18 05:53] LABS: Anion Gap 10 mmol/L; Blood Urea Nitrogen 19 mg/dL (9-20); Calcium 8.7 mg/dL (8.4-10.2); Carbon Dioxide 25 mmol/L (22-30); Chloride 106 mmol/L (98-107); Glucose 204 mg/dL (74-99); Magnesium 1.7 mg/dL (1.6-2.3); Phosphorus 3.7 mg/dL (2.5-4.5); Potassium 3.7 mmol/L (3.5-5.1); Sodium 141 mmol/L (137-145)
[2019-01-18] MEDS ORDERED: Magnesium Replacement Protocol 1 EACH MISC MISCELLANE PRN (06:23)
[2019-01-18] MEDS ORDERED: Potassium Replacement Protocol 1 EACH MISC MISCELLANE PRN (06:23)
[2019-01-18] MEDS: amLODIPine 10 MG TAB PO SCH (06:28)
[2019-01-18] MEDS: cloNIDine HCL 0.2 MG TAB PO SCH (06:29)
[2019-01-18 06:34] LABS: Glucose,Whole Blood 188 mg/dL (75-99)
[2019-01-18] MEDS ORDERED: POTASSIUM CHLORIDE ER 20 MEQ TAB.ER PO SCH (07:00)
[2019-01-18] MEDS: INSULIN ASPART (NovoLOG) 100 UNIT/ML VIAL SQ SCH ×4 (07:28→21:15)
[2019-01-18] MEDS: MAGNESIUM SULFATE-D5W PMX 1 GM in DEXTROSE/WATER 1 100ML.BAG IVPB SCH ×2 (07:28→10:56)
[2019-01-18] MEDS: INSULN ASP PRT/INSULIN ASPART 100 UNIT/ML 10 ML VIAL SQ SCH (08:18)
[2019-01-18] MEDS: ASPIRIN 81 MG PO SCH (08:28)
[2019-01-18] MEDS: FUROSEMIDE 40 MG TAB PO SCH ×2 (08:28→11:37)
[2019-01-18] MEDS: TICAGRELOR 90 MG TAB PO SCH ×2 (08:29→20:27)
[2019-01-18] MEDS: POTASSIUM CHLORIDE ER 10 MEQ TAB.ER.PRT PO SCH (08:29)
[2019-01-18] MEDS: LOSARTAN 50 MG TAB PO SCH (08:29)
[2019-01-18] MEDS: DULoxetine HCL 30 MG CAPSULE.DR PO SCH (08:29)
[2019-01-18] MEDS: ISOSORBIDE MONONITRATE ER 30 MG TAB.ER.24H PO SCH (08:29)
[2019-01-18] MEDS: FINASTERIDE 5 MG TAB PO SCH (08:29)
[2019-01-18] MEDS ORDERED: PANTOPRAZOLE 40 MG/10 ML VIAL IV SCH (09:00)
--- NOTE | 2019-01-18 09:08 | XR ---
EXAMINATION TYPE: XR chest 1V portable DATE OF EXAM: 01/18/2019 COMPARISON: 01/17/2019 HISTORY: Tube placement TECHNIQUE: Single frontal view of the chest is obtained. FINDINGS: ET and NG tube have been removed. Bilateral consolidation and pleural effusion greater on the right stable. Central interstitial pattern noted with no pneumothorax. Arthropathy of the shoulde rs. Heart is enlarged. IMPRESSION: Bilateral consolidation and pleural effusion correlate for pneumonia or atelectasis.
--- NOTE | 2019-01-18 09:20 | P.PN ---
Subjective Progress Note Date: 01/18/19 Principal diagnosis: Coronary artery disease, status post atherectomy and stenting of the LAD and RCA, routine ventilator management for elective intubation This is a 78-year-old white male patient of Dr. Colon, with past medical history of hypertension, morbid obesity, chronic congestive heart failure with diastolic dysfunction, diabetes mellitus type 2, paroxysmal atrial fibrillation , previous history of TIA, BPH, chronic lower extremity edema with history of venous stasis ulcer, generalized anxiety disorder and panic attacks. Patient had been having symptoms of increasing exertional dyspnea, concerning for angina. On 12/13/2018 patient underwent heart catheterization by Dr. Chamberlain, and was found to have heavily calcified right and left coronary systems, severe disease involving the mid RCA, chronic total occlusion of the left circumflex coronary artery, and intermediate to severe disease involving the proximal LAD and intermediate disease involving the mid LAD. The day on 01/17/2019 patient was brought back for elective atherectomy and stenting of the LAD and the RCA. Prior to the procedure patient was experiencing severe anxiety, he was unable to lie flat related to severe anxiety, and difficulty breathing. Patient was electively intubated, sedated for the procedure, and he underwent successful stenting of the LAD and RCA. Following the procedure patient was transferred to the intensive care unit, and this consult was initiated. On 01/18/2019 patient seen in follow-up in the intensive care unit, he sitting up in the recliner, in no acute distress, he is alert and oriented 3. Currently on room air, his pulse ox is 91-92%. Denies any difficulty breathing , denies any chest pain. Patient is status post ectomy and stenting of the LAD and RCA, this postop day 1. Doing well, no arrhythmias and a monitor, no acute events overnight, yesterday patient arrived to the unit intubated and on mechanical ventilator, we gave the patient additional dose of IV Lasix 40 mg after reviewing his chest x-ray which showed bilateral pleural effusions, and adjacent atelectasis. Patient has been diuresed, he is in -774 mL fluid balance over the last 24 hours, he has 0.9 normal saline running at 75 ML per hour, clevidipine drip at 60 mg/h, and his current blood pressure is 143/65. this morning's labs were reviewed, white blood cell count is 11.6, hemoglobin is 15.5, electrolytes and renal profile were unremarkable. She was weaned and successfully extubated at 2019 last night. He is tolerating extubation quite well this morning. Objective - Vital Signs Vital signs: Vital Signs Temp 97.9 F 01/18/19 08:00 Pulse 69 01/18/19 08:30 Resp 21 01/18/19 08:30 BP 143/65 01/18/19 08:30 Pulse Ox 92 L 01/18/19 08:30 Intake & Output 01/17/19 01/18/19 01/18/19 18:59 06:59 18:59 Intake Total 4504.193 6294.441 150 Output Total 2090 2175 Balance -877.829 103.441 150 Intake: IV 1125 900 150 Sodium Chloride 0.9% 1, 375 900 150 000 ml @ 75 mls/hr IV . [id number] [place] Rx#:[id number] Intake, IV Titration 87.171 278.441 Amount Clevidipine Butyrate 25 19.967 262.867 mg In Empty Bag 1 bag @ 1 MG/HR 2 mls/hr IV .Q24H [place] Rx#:[id number] Propofol 1,000 mg In 67.204 15.574 Empty Bag 1 bag @ Titrate IV .Q0M [place] Rx#: [id number] Oral 1100 Output: Gastric Drainage 15 Urine 2074 2175 Other: Voiding Method Indwelling Catheter Indwelling Catheter - Exam GENERAL EXAM: Alert, pleasant, 78-year-old obese white male, on room air, comfortable in no apparent distress. HEAD: Normocephalic/atraumatic. EYES: Normal reaction of pupils, equal size. Conjunctiva pink, sclera white. NOSE: Clear with pink turbinates. THROAT: No erythema or exudates. NECK: No masses, no JVD, no thyroid enlargement, no adenopathy. CHEST: No chest wall deformity. Symmetrical expansion. LUNGS: Equal air entry with bibasilar crackles, no wheeze, rhonchi or dullness. CVS: Regular rate and rhythm, normal S1 and S2, no gallops, no murmurs, no rubs ABDOMEN: Soft, nontender. No hepatosplenomegaly, normal bowel sounds, no guarding or rigidity. EXTREMITIES: No clubbing, 1-2+ nonpitting edema, with changes of chronic venous stasis in the lower extremities, no cyanosis, 2+ pulses and upper and lower extremities. MUSCULOSKELETAL: Muscle strength and tone normal. SPINE: No scoliosis or deformity SKIN: No rashes CENTRAL NERVOUS SYSTEM: Alert and oriented -3. No focal deficits, tone is normal in all 4 extremities. PSYCHIATRIC: Alert and oriented -3. Appropriate affect. Intact judgment and insight. - Labs CBC & Chem 7: 01/18/19 04:53 01/18/19 04:53 Labs: Abnormal Lab Results - Last 24 Hours (Table) 01/17/19 01/17/19 01/17/19 Range/Units 13:20 13:53 13:56 WBC (3.8-10.6) k/uL RDW 16.4 H (11.5-15.5) % Plt Count 141 L (150-450) k/uL Neutrophils # (1.3-7.7) k/uL Lymphocytes # (1.0-4.8) k/uL ABG pO2 309 H (83-108) mmHg ABG HCO3 28 H (21-25) mmol/L ABG Total CO2 30 H (19-24) mmol/L ABG O2 Saturation 99.9 H (94-97) % Chloride (98-107) mmol/L Glucose (74-99) mg/dL POC Glucose (mg/dL) 108 H (75-99) mg/dL 01/17/19 01/17/19 01/18/19 Range/Units 13:56 20:52 03:54 WBC (3.8-10.6) k/uL RDW (11.5-15.5) % Plt Count (150-450) k/uL Neutrophils # (1.3-7.7) k/uL Lymphocytes # (1.0-4.8) k/uL ABG pO2 79 L (83-108) mmHg ABG HCO3 30 H (21-25) mmol/L ABG Total CO2 31 H (19-24) mmol/L ABG O2 Saturation (94-97) % Chloride 110 H (98-107) mmol/L Glucose 109 H (74-99) mg/dL POC Glucose (mg/dL) 195 H (75-99) mg/dL 01/18/19 01/18/19 01/18/19 Range/Units 04:53 04:53 06:32 WBC 11.6 H (3.8-10.6) k/uL RDW 16.6 H (11.5-15.5) % Plt Count (150-450) k/uL Neutrophils # 9.6 H (1.3-7.7) k/uL Lymphocytes # 0.7 L (1.0-4.8) k/uL ABG pO2 (83-108) mmHg ABG HCO3 (21-25) mmol/L ABG Total CO2 (19-24) mmol/L ABG O2 Saturation (94-97) % Chloride (98-107) mmol/L Glucose 204 H (74-99) mg/dL POC Glucose (mg/dL) 188 H (75-99) mg/dL Microbiology - Last 24 Hours (Table) 01/17/19 13:48 Urine Culture - Preliminary Urine,Catheterized Assessment and Plan Plan: Assessment: #1. Elective intubation and placement on mechanical ventilator for the heart catheterization and stenting, in view of severe anxiety, and difficulty breathing and inability to lie flat. We are consulted for routine ventilator management and ICU management. Patient was successfully extubated on 2018 at 20/20, tolerating extubation quite well #2. Coronary artery disease, status post atherectomy and stenting of the LAD and RCA, postop day 1 #3. Hypertensive urgency, improved, and patient remains on clevidipine drip currently at 16 mg per hour. #4. Morbid obesity, with a BMI of 45.2 #5. History of chronic congestive heart failure with diastolic dysfunction #6. Paroxysmal atrial fibrillation #7. Diabetes mellitus type 2 #8. Hypertension, hyperlipidemia #9. BPH #10. Chronic lower extremity edema is truly of venous stasis ulcer Plan: Patient was extubated last night, tolerating extubation well, he was given additional dose of IV Lasix yesterday, diuresed, this might chest x-ray shows bilateral pleural effusions, and adjacent atelectasis. Continue with oral Lasix as per cardiology. He remains on clevidipine drip currently at 60 mg per hour, we will ask cardiology about blood pressure medications so we can wean the patient off the clevidipine drip. Otherwise patient is doing well, no acute events overnight, no complaints of difficulty breathing or chest pain. We 'll continue to follow I performed a history & physical examination of the patient and discussed their management with my nurse practitioner, Tori Casarez. I reviewed the nurse practitioner's note and agree with the documented findings and plan of care. Lung sounds are lung sounds, bibasilar crackles.. The findings and the impression was discussed with the patient. I attest to the documentation by the nurse practitioner. Time with Patient: Greater than 30
[2019-01-18 10:08] VITALS: BMI 45.1
[2019-01-18] MEDS: hydrALAZINE HCL 50 MG TAB PO SCH ×3 (10:55→21:16)
[2019-01-18 11:33] LABS: Glucose,Whole Blood 234 mg/dL (75-99)
[2019-01-18] MEDS ORDERED: hydrALAZINE HCL 50 MG TAB PO STA (12:57)
--- NOTE | 2019-01-18 13:47 | P.PN ---
Progress Note - Text Progress Note Date: 01/18/19 This is a pleasant 78-year-old gentleman who sees Dr. Colon in the office and regular basis with a past medical history significant for obesity, diabetes, hypertension, dyslipidemia, and paroxysmal atrial fibrillation, was admitted to the hospital yesterday and underwent successful stenting of both the right coronary artery as well as left anterior descending artery with a good angiographic results and without any complication. The patient was experiencing exertional dyspnea concerning for angina. Few weeks ago, he underwent a heart catheterization and that revealed extremely calcified right and left coronary systems with severe disease involving the right coronary artery and critical disease involving the LAD. Because of the patient was having hard time laying flat in bed, and because we had hard time engaging his coronaries from the right radial approach, I did recommend doing the procedure, right femoral approach under general anesthesia. The patient underwent yesterday successful stenting of the right coronary artery as well as left anterior descending artery with a good angiographic results and without any complication from right femoral approach. On follow-up with him today, the patient was extubated. He was sitting in the chair does not look in any distress or pain. The right groin is soft and nontender and without any bruises. The patient currently is on Clevidipine and IV to control his blood pressure. The blood work was reviewed and came in to be unremarkable. Beside that he is on dual antiplatelet therapy. Plan Wean the patient down from the Clevidipine Continue the current medical regimen including Norvasc, losartan, and clonidine Add hydralazine at 50 mg by mouth 3 times a day Monitor the patient for the next 12-24 hours for possible discharge home
[2019-01-18 17:09] LABS: Glucose,Whole Blood 202 mg/dL (75-99)
[2019-01-18] MEDS ORDERED: INSULN ASP PRT/INSULIN ASPART 100 UNIT/ML 10 ML VIAL SQ SCH (17:30)
[2019-01-18] MEDS: ATORVASTATIN 10 MG TAB PO SCH (20:27)
--- NOTE | 2019-01-18 20:31 | P.CONS ---
History of Present Illness - Reason for Consult Consult date: 01/18/19 Medical management Requesting physician: Miguel Mcnally - Chief Complaint Post PCI and stent placement of the right coronary artery, respiratory fail - History of Present Illness 78-year-old morbidly obese male one of my office patient with history of CHF, COPD, CAD, type 2 diabetes on insulin with insulin resistant status quite a chronic edema and anasarca, who was having persistent and recurrent chest pain with positive stress test ended up having heart catheter with Dr. Mcnally 3 weeks ago with positive finding for significant right coronary artery disease, patient could not stay still during angioplasty and stent placement ended up canceling the procedure the time and patient brought to the hospital yesterday and had angioplasty of the right coronary artery disease after patient was intubated and sedated. Patient was admitted to the ICU afterward seen pulmonary and was extubated successfully still having slight shortness of breath and edema otherwise his angioplasty went successfully. Review of Systems CONSTITUTIONAL: Review be sitting in a chair no acute respiratory distress. EYES: No icterus sclerae, no conjunctivitis. EARS, NOSE, MOUTH, THROAT, and FACE: No sore throat, lymphadenopathy, carotid bruits or deformity. RESPIRATORY: Mild dyspnea and shortness of breath CARDIOVASCULAR: Mild arrhythmia palpitation with PND and orthopnea no angina GASTROINTESTINAL: No Abd pain, Nausea or vomiting, no Diarrhea or constipation, No GI Bleed, no distention or masses. GENITOURINARY: Negative for Hematuria or UTI, no kidney stones. INTEGUMENT/BREAST: Negative for any muscular injury with mild osteoarthritis.. HEMATOLOGIC/LYMPHATIC: Negative for bleed or purpura. MUSCULOSKELTAL: Significant edema and arthralgia in the lower extremity. NEURLOGICAL: No LOC, Sz or syncope, blurred vision dizziness or abnormality.. BEHAVIORAL/PSYCH: Negative. ENDOCRINE: Negative. Past Medical History Past Medical History: Atrial Fibrillation, Heart Failure, Diabetes Mellitus, Hyperlipidemia, Hypertension, Osteoarthritis (OA), Pneumonia Additional Past Medical History / Comment(s): edema jeffrey lower legs that comes and goes,hx kidney stones, hx migraines, Pneumonia 2018, cleft palate - repair History of Any Multi-Drug Resistant Organisms: None Reported Past Surgical History: Heart Catheterization, Orthopedic Surgery, Tonsillectomy Additional Past Surgical History / Comment(s): left shoulder surgery, surgery jeffrey knees, rt hand surgery for fx fingers from work injury, left hand surgery fx finger from sports injury, jeffrey cataracts, Past Anesthesia/Blood Transfusion Reactions: No Reported Reaction Past Psychological History: Anxiety, Panic Disorder Additional Psychological History / Comment(s): panic attacks Smoking Status: Never smoker Past Alcohol Use History: None Reported Past Drug Use History: None Reported - Past Family History Father Family Medical History: No Reported History Additional Family Medical History / Comment(s): Father was a heavy smoker. He of a [place] at the age of 42yrs. Mother Family Medical History: Cancer Additional Family Medical History / Comment(s): . Medications and Allergies Home Medications Medication Instructions Recorded Confirmed Type ALPRAZolam [Xanax] 0.25 mg PO HS 05/05/16 01/17/19 History Atorvastatin [Lipitor] 10 mg PO HS 05/05/16 01/17/19 History Finasteride [Proscar] 5 mg PO DAILY 05/05/16 01/17/19 History Potassium Chloride [K-Tab ER] 10 meq PO DAILY 05/05/16 01/17/19 History Apixaban [Eliquis] 5 mg PO BID 06/03/18 01/17/19 History Aspirin [Adult Low Dose Aspirin EC] 81 mg PO DAILY 06/03/18 01/17/19 History Carvedilol 25 mg PO BID 06/03/18 01/17/19 History DULoxetine HCL [Cymbalta] 30 mg PO DAILY 06/03/18 01/17/19 History Isosorbide Mononitrate ER [Imdur] 30 mg PO DAILY 06/03/18 01/17/19 History cloNIDine HCL [Catapres] 0.2 mg PO BID #60 tab 06/07/18 01/17/19 Rx Furosemide [Lasix] 40 mg PO 0800,1200 12/08/18 01/17/19 History Insuln Asp Prt/Insulin Aspart 35 unit SQ AC-SUPPER PRN 12/08/18 01/17/19 History [NovoLOG MIX 70-30 VIAL] Insuln Asp Prt/Insulin Aspart 65 unit SQ AC-BRKFST 12/08/18 01/17/19 History [NovoLOG MIX 70-30 VIAL] Sertraline HCl [Zoloft] 100 mg PO HS 12/08/18 01/17/19 History amLODIPine [Norvasc] 10 mg PO DAILY 12/08/18 01/17/19 History Insulin Degludec [Tresiba 30 units SQ HS 01/13/19 01/17/19 History Flextouch U-100] Losartan Potassium [Cozaar] 100 mg PO DAILY 01/13/19 01/17/19 History Allergies Allergy/AdvReac Type Severity Reaction Status Date / Time No Known Allergies Allergy Verified 01/17/19 14:45 Physical Exam Vitals: Vital Signs Temp Pulse Resp BP Pulse Ox 01/18/19 08:30 69 21 143/65 92 L 01/18/19 08:00 97.9 F 71 21 158/88 91 L 01/18/19 07:30 82 12 152/88 93 L 01/18/19 07:00 75 16 165/77 93 L 01/18/19 06:45 75 9 L 165/77 93 L 01/18/19 06:30 76 16 166/74 92 L 01/18/19 06:15 76 16 166/74 92 L 01/18/19 06:00 73 23 165/93 92 L 01/18/19 05:45 77 13 168/73 93 L 01/18/19 05:30 77 7 L 157/89 92 L 01/18/19 05:15 72 16 162/71 90 L 01/18/19 05:00 71 23 144/69 92 L 01/18/19 04:45 76 36 H 155/76 91 L 01/18/19 04:30 73 16 153/68 94 L 01/18/19 04:15 71 16 153/67 93 L 01/18/19 04:00 98.1 F 76 16 158/71 94 L 01/18/19 03:45 73 8 L 156/68 96 01/18/19 03:30 75 18 145/69 95 01/18/19 03:15 71 11 L 140/63 93 L 01/18/19 03:00 73 12 145/64 93 L 01/18/19 02:45 75 14 141/61 93 L 01/18/19 02:30 78 0 L 148/82 93 L 01/18/19 02:15 82 20 146/67 95 01/18/19 02:00 80 34 H 147/67 96 01/18/19 01:45 67 20 146/63 94 L 01/18/19 01:30 80 11 L 150/65 97 01/18/19 01:15 80 21 154/70 95 01/18/19 01:00 82 12 153/68 95 01/18/19 00:45 81 25 H 148/66 95 01/18/19 00:30 79 20 154/70 95 01/18/19 00:15 78 22 156/67 95 01/18/19 00:00 78 13 162/69 96 01/17/19 23:45 76 17 168/78 98 01/17/19 23:30 79 25 H 170/76 96 01/17/19 23:23 77 10 L 170/76 96 01/17/19 23:15 83 24 171/70 96 01/17/19 23:00 75 30 H 153/76 96 01/17/19 22:45 72 18 160/67 97 01/17/19 22:30 70 24 159/70 97 01/17/19 22:15 66 25 H 163/73 99 01/17/19 22:00 69 17 170/86 96 01/17/19 21:45 75 31 H 173/109 95 01/17/19 21:30 78 31 H 173/109 95 01/17/19 21:15 75 18 199/102 94 L 01/17/19 21:00 98.1 F 71 23 183/89 97 01/17/19 20:45 70 20 187/91 95 01/17/19 20:30 64 17 156/73 94 L 01/17/19 20:15 56 L 16 149/69 94 L 01/17/19 20:00 98.0 F 57 L 19 140/73 94 L 01/17/19 19:45 52 L 20 136/67 92 L 01/17/19 19:30 49 L 16 135/65 92 L 01/17/19 19:15 49 L 15 146/69 92 L 01/17/19 19:00 53 L 19 172/85 94 L 01/17/19 18:45 52 L 16 172/94 96 01/17/19 18:30 49 L 23 180/91 97 01/17/19 18:15 54 L 15 139/70 97 01/17/19 18:00 44 L 15 136/73 95 01/17/19 17:45 46 L 19 127/67 95 01/17/19 17:30 44 L 15 130/65 96 01/17/19 17:15 44 L 14 158/73 96 01/17/19 17:00 50 L 14 155/79 96 01/17/19 16:45 46 L 16 137/75 95 01/17/19 16:30 45 L 15 132/69 96 01/17/19 16:15 45 L 18 141/72 96 01/17/19 16:00 45 L 16 136/69 94 L 01/17/19 15:45 48 L 18 137/70 93 L 01/17/19 15:30 52 L 14 119/63 94 L 01/17/19 15:15 41 L 14 121/72 92 L 01/17/19 15:00 44 L 14 112/59 92 L 01/17/19 14:45 44 L 14 120/60 92 L 01/17/19 14:30 45 L 14 183/86 93 L 01/17/19 14:15 66 16 163/85 91 L 01/17/19 14:00 50 L 14 167/91 97 01/17/19 13:45 49 L 18 184/98 98 01/17/19 13:30 97.7 F 55 L 14 198/101 97 Intake and Output 01/17/19 01/18/19 01/18/19 22:59 06:59 14:59 Intake Total 890.722 4944.8 150 Output Total 3415 800 Balance -2659.343 1087.8 150 Intake: IV 600 600 150 Sodium Chloride 0.9% 1, 600 600 150 000 ml @ 75 mls/hr IV . [id number] [place] Rx#:[id number] Intake, IV Titration 155.657 187.8 Amount Clevidipine Butyrate 25 90.067 187.8 mg In Empty Bag 1 bag @ 1 MG/HR 2 mls/hr IV .Q24H [place] Rx#:[id number] Propofol 1,000 mg In 65.590 Empty Bag 1 bag @ Titrate IV .Q0M [place] Rx#: [id number] Oral 1100 Output: Gastric Drainage 15 Urine 3400 800 Other: Voiding Method Indwelling Catheter Indwelling Catheter General Appearance: Obese alert cooperated no acute respiratory distress. Neck HEENT: Supple, no lymphadenopathy, no thyroid enlargement, no carotid bruits. Lungs: Clear to auscultation without crackles or wheezes no rhonchi, no deformity. Chest Wall: Chest wall normal expansion with deep inspiration no tenderness and no deformity was found on exam, no costochondral pain or discomfort. Heart: Regular rate and rhythm, S1, S2 normal, no murmur, rub or gallop. Back: Symmetric, no curvature, ROM normal, no CVA tenderness. Abdomen: Soft, non-tender, bowel sounds active all four quadrants, no masses, no organomegaly. Extremities: 2+ edema with slight discoloration from the knee down decreased pulse in dorsalis pedis and posterior tibial. Pulses: 2+ and symmetric. Skin: Skin color, texture, tugor normal, no rashes or lesions. Neurologic: Alert oriented x3 cranial nerves II through XII intact, no motor deficit, no abnormal balance or gait. Results CBC & Chem 7: 01/18/19 04:53 01/18/19 04:53 Labs: Abnormal Lab Results - Last 24 Hours (Table) 01/17/19 01/17/19 01/17/19 Range/Units 13:20 13:53 13:56 WBC (3.8-10.6) k/uL RDW 16.4 H (11.5-15.5) % Plt Count 141 L (150-450) k/uL Neutrophils # (1.3-7.7) k/uL Lymphocytes # (1.0-4.8) k/uL ABG pO2 309 H (83-108) mmHg ABG HCO3 28 H (21-25) mmol/L ABG Total CO2 30 H (19-24) mmol/L ABG O2 Saturation 99.9 H (94-97) % Chloride (98-107) mmol/L Glucose (74-99) mg/dL POC Glucose (mg/dL) 108 H (75-99) mg/dL 01/17/19 01/17/19 01/18/19 Range/Units 13:56 20:52 03:54 WBC (3.8-10.6) k/uL RDW (11.5-15.5) % Plt Count (150-450) k/uL Neutrophils # (1.3-7.7) k/uL Lymphocytes # (1.0-4.8) k/uL ABG pO2 79 L (83-108) mmHg ABG HCO3 30 H (21-25) mmol/L ABG Total CO2 31 H (19-24) mmol/L ABG O2 Saturation (94-97) % Chloride 110 H (98-107) mmol/L Glucose 109 H (74-99) mg/dL POC Glucose (mg/dL) 195 H (75-99) mg/dL 01/18/19 01/18/19 01/18/19 Range/Units 04:53 04:53 06:32 WBC 11.6 H (3.8-10.6) k/uL RDW 16.6 H (11.5-15.5) % Plt Count (150-450) k/uL Neutrophils # 9.6 H (1.3-7.7) k/uL Lymphocytes # 0.7 L (1.0-4.8) k/uL ABG pO2 (83-108) mmHg ABG HCO3 (21-25) mmol/L ABG Total CO2 (19-24) mmol/L ABG O2 Saturation (94-97) % Chloride (98-107) mmol/L Glucose 204 H (74-99) mg/dL POC Glucose (mg/dL) 188 H (75-99) mg/dL Microbiology - Last 24 Hours (Table) 01/17/19 13:48 Urine Culture - Preliminary Urine,Catheterized Assessment and Plan Plan: 1 severe CAD: Post angioplasty and stent placement, patient is doing well continue secondary prevention with Jemal, beta yusuf, statin and will and antiplatelet agent. 2 acute respiratory failure: Was intubated for the procedure and extubated successfully afterward he is back on his regular inhaler and nebulizer still on O2. 3 A. fib with RVR: Patient pulse rates under control currently still on Coreg 25 mg twice a day and we'll resume all her quest 5 mg twice a day. 4 COPD: Was on DuoNeb and Pulmicort continue O2. 5 anasarca and diastolic congestive heart failure: Has been on losartan, Norvasc and furosemide along with Coreg. 6 hyperlipidemia: Continue patient on atorvastatin higher dose. 7 severe hypertension: Resume clonidine 0.2 mg twice a day along with amlodipine 10 mg daily losartan 100 mg daily Coreg and furosemide. 8 chronic kidney disease: Stage II, has been stable lately repeat BUN/ creatinine next 24 hours. 9 chronic depression: Has been doing well on Zoloft 100 mg daily. 10 type 2 diabetes: Has been on insulin 7030 65 units with breakfast 105 at dinnertime patient still on Levemir 30 units at bedtime as well continue Accu- Chek with sliding scales coverage. CODE STATUS: Full code. Dr. Chamberlain thank you much for the consult. Camby any further help to please let me know.
[2019-01-18 21:09] LABS: Glucose,Whole Blood 259 mg/dL (75-99)
[2019-01-18] MEDS: SERTRALINE 100 MG TAB PO SCH (21:09)
[2019-01-18] MEDS: ALPRAZolam 0.25 MG TAB PO SCH (21:09)
[2019-01-18] MEDS: INSULIN DETEMIR (LEVEMIR) 100 UNIT/ML SYR SQ SCH (21:15)
[2019-01-18] MEDS: cloNIDine HCL 0.1 MG TAB PO SCH (21:16)
[2019-01-19 00:24] VITALS: TEMP 98.4
[2019-01-19] MEDS: CLEVIDIPINE BUTYRATE 25 MG in EMPTY BAG 1 BAG IV SCH ×2 (00:47→03:08)
[2019-01-19 05:22] LABS: Anisocytosis Slight; Basophils # (A) 0.1 k/uL (0-0.2); Basophils % (A) 1 %; Eosinophils # (A) 0.3 k/uL (0-0.7); Eosinophils % (A) 3 %; HGB 15.1 gm/dL (13.0-17.5); Lymphocytes # (A) 1.1 k/uL (1.0-4.8); Lymphocytes % (A) 11 %; MCH 29.1 pg (25.0-35.0); MCHC 32.2 g/dL (31.0-37.0); MCV 90.3 fL (80.0-100.0); Mean Platelet Volume 7.8; Monocytes % (A) 10 %; Neutrophils # (A) 7.3 k/uL (1.3-7.7); Neutrophils % (A) 74 %; Platelet Count 153 k/uL (150-450); RDW 16.6 % (11.5-15.5); WBC 9.8 k/uL (3.8-10.6)
[2019-01-19 05:52] LABS: Anion Gap 7 mmol/L; Blood Urea Nitrogen 21 mg/dL (9-20); Calcium 8.5 mg/dL (8.4-10.2); Carbon Dioxide 27 mmol/L (22-30); Chloride 108 mmol/L (98-107); Glucose 85 mg/dL (74-99); Magnesium 1.9 mg/dL (1.6-2.3); Potassium 3.3 mmol/L (3.5-5.1); Sodium 142 mmol/L (137-145)
[2019-01-19] MEDS ORDERED: Potassium Replacement Protocol 1 EACH MISC MISCELLANE PRN (05:57)
[2019-01-19 06:50] LABS: Glucose,Whole Blood 78 mg/dL (75-99)
[2019-01-19] MEDS ORDERED: PANTOPRAZOLE 40 MG TABLET PO SCH (07:30)
[2019-01-19] MEDS ORDERED: CARVEDILOL 12.5 MG TAB PO SCH (07:45)
[2019-01-19] MEDS: POTASSIUM CHLORIDE ER 10 MEQ TAB.ER.PRT PO SCH (08:03)
[2019-01-19] MEDS: amLODIPine 10 MG TAB PO SCH (08:03)
[2019-01-19] MEDS: TICAGRELOR 90 MG TAB PO SCH (08:03)
[2019-01-19] MEDS: hydrALAZINE HCL 50 MG TAB PO SCH (08:04)
[2019-01-19] MEDS: ASPIRIN 81 MG PO SCH (08:04)
[2019-01-19] MEDS: FUROSEMIDE 40 MG TAB PO SCH ×2 (08:04→11:32)
[2019-01-19] MEDS: DULoxetine HCL 30 MG CAPSULE.DR PO SCH (08:05)
[2019-01-19] MEDS: FINASTERIDE 5 MG TAB PO SCH (08:05)
[2019-01-19] MEDS: cloNIDine HCL 0.1 MG TAB PO SCH (08:05)
[2019-01-19] MEDS: ISOSORBIDE MONONITRATE ER 30 MG TAB.ER.24H PO SCH (08:07)
[2019-01-19] MEDS: LOSARTAN 50 MG TAB PO SCH (08:07)
[2019-01-19] MEDS: INSULN ASP PRT/INSULIN ASPART 100 UNIT/ML 10 ML VIAL SQ SCH (08:08)
[2019-01-19 08:15] LABS: Glucose,Whole Blood 195 mg/dL (75-99)
[2019-01-19] MEDS: POTASSIUM CHLORIDE ER 20 MEQ TAB.ER PO SCH ×2 (08:17→11:32)
[2019-01-19] MEDS: INSULIN ASPART (NovoLOG) 100 UNIT/ML VIAL SQ SCH (08:19)
--- NOTE | 2019-01-19 09:04 | XR ---
EXAMINATION TYPE: XR chest 1V portable DATE OF EXAM: 01/19/2019 COMPARISON: 01/18/2019 HISTORY: Abnormal x-ray TECHNIQUE: Single frontal view of the chest is obtained. FINDINGS: ET and NG tube have been removed. Bilateral consolidation and pleural effusion greater on the right stable. Central interstitial pattern noted with no pneumothorax. Arthropathy of the shoulde rs. Heart is enlarged. IMPRESSION: Bilateral consolidation and pleural effusion correlate for pneumonia or atelectasis. No significant i nterval change.
[2019-01-19 11:18] VITALS: BP 148/82; PULSE 68; RESP 20
[2019-01-19 11:33] LABS: Glucose,Whole Blood 111 mg/dL (75-99)
--- NOTE | 2019-01-20 09:21 | DS ---
DISCHARGE SUMMARY DATE OF ADMISSION: January 17, 2019 DATE OF DISCHARGE: January 19, 2019 BRIEF HISTORY AND HOSPITAL COURSE: This is a pleasant 78-year-old gentleman who sees Dr. Colon in the office on a regular basis with a past medical history significant for morbid obesity, diabetes, hypertension, and dyslipidemia, who was experiencing symptoms of exertional dyspnea concerning for angina equivalent. He underwent a heart catheterization a few weeks ago and that revealed extremely calcified right and left coronary systems with severe disease involving the mid RCA and severe disease involving the proximal left anterior descending artery. On January 17, 2019, he was admitted to the hospital and under general anesthesia he underwent successful stenting of both the RCA and the LAD with good angiographic results and without any complication from right groin approach. We kept the patient one more day in the hospital, which was yesterday because his pressure was out of control. After adjusting the medications and increasing the dose of clonidine to 0.3 mg p.o. t.i.d. as well as adding hydralazine at 50 mg p.o. t.i.d. the blood pressure has come down very nicely. On follow up with the patient today, he is doing good and he is asymptomatic. The patient is going to be discharged home on dual anti-platelet therapy along with statin. I will follow up with the patient in a week in the office. PIERCE / ALFRED: [id number] /
--- NOTE | 2019-01-20 12:18 | CDI ---
Documentation Clarification Form Date: 01/20/2019 11:05:00 AM From: Glendy Waterman Sushila Starr, Automobile Painter Hours-8:30 am & 5 pm Thaddeus Admit Date: 01/17/2019 12:36:00 PM Patient Name: Burak Ceballos Visit Number: [id number] Discharge Date: 01/19/2019 12:03:00 PM ATTENTION: The Clinical Documentation Specialists (CDI) and [facility] Coding Staff appreciate your assistance in clarifying documentation. Please respond to the clarification below the line at the bottom and electronically sign. The CDI & [facility] Coding staff will review the response and follow-up if needed. Please note: Queries are made part of the Legal Health Record. If you have any questions, please contact the author of this message via ITS. Dr. Miguel Mcnally The patient was intubated for general anesthesia for PTCA and extubated in ICU at 21:13. Respiratory Consult documents acute respiratory failure. History/Risk Factors: Morbid obesity, CHF, COPD, AFIB In your professional opinion, can you please clarify if these findings signify one of the following conditions? Acute Respiratory Failure Chronic Respiratory Failure Respiratory Distress Respiratory Insufficiency Other Diagnosis, please specify Unable to determine MTDD
--- NOTE | 2019-01-20 14:57 | P.PN ---
Subjective Progress Note Date: 01/19/19 78-year-old morbidly obese male one of my office patient with history of CHF, COPD, CAD, type 2 diabetes on insulin with insulin resistant status quite a chronic edema and anasarca, who was having persistent and recurrent chest pain with positive stress test ended up having heart catheter with Dr. Mcnally 3 weeks ago with positive finding for significant right coronary artery disease, patient could not stay still during angioplasty and stent placement ended up canceling the procedure the time and patient brought to the hospital yesterday and had angioplasty of the right coronary artery disease after patient was intubated and sedated. Patient was admitted to the ICU afterward seen pulmonary and was extubated successfully still having slight shortness of breath and edema otherwise his angioplasty went successfully. 01/19: Patient is seen in the intensive care unit. He is scheduled for discharge home later today. He denies any chest pain or shortness of breath. He is complaining of pain in the left plantar surface of the foot most likely plantar fasciitis. Patient has been hemodynamically stable. Heart rate is running in the 60s and 70s, blood pressure 148/82, pulse ox 93% on room air. He has been afebrile. Review of Systems CONSTITUTIONAL: Review be sitting in a chair no acute respiratory distress. EYES: No icterus sclerae, no conjunctivitis. EARS, NOSE, MOUTH, THROAT, and FACE: No sore throat, lymphadenopathy, carotid bruits or deformity. RESPIRATORY: Mild dyspnea and shortness of breath CARDIOVASCULAR: Mild arrhythmia palpitation with PND and orthopnea no angina GASTROINTESTINAL: No Abd pain, Nausea or vomiting, no Diarrhea or constipation, No GI Bleed, no distention or masses. GENITOURINARY: Negative for Hematuria or UTI, no kidney stones. INTEGUMENT/BREAST: Negative for any muscular injury with mild osteoarthritis.. HEMATOLOGIC/LYMPHATIC: Negative for bleed or purpura. MUSCULOSKELTAL: Significant edema and arthralgia in the lower extremity. NEURLOGICAL: No LOC, Sz or syncope, blurred vision dizziness or abnormality.. BEHAVIORAL/PSYCH: Negative. ENDOCRINE: Negative. Objective - Vital Signs Vital signs: Vital Signs Temp 98.4 F 01/19/19 04:00 Pulse 75 01/19/19 07:00 Resp 25 H 01/19/19 07:00 BP 187/79 01/19/19 07:00 Pulse Ox 96 01/19/19 07:00 Intake & Output 01/18/19 01/19/19 01/19/19 18:59 06:59 18:59 Intake Total 1057.4 893.533 20 Output Total 2100 720 Balance -1042.6 173.533 20 Weight 146.964 kg Intake: IV 750 230 20 .9 KVO 230 20 Sodium Chloride 0.9% 1, 750 000 ml @ 75 mls/hr IV . [id number] [place] Rx#:[id number] Intake, IV Titration 307.4 263.533 Amount Clevidipine Butyrate 25 157.4 188.533 mg In Empty Bag 1 bag @ 1 MG/HR 2 mls/hr IV .Q24H [place] Rx#:[id number] Magnesium Sulfate-D5w Pmx 150 75 1 gm In Dextrose/Water 1 100ml.bag @ 100 mls/hr IVPB Q1H [place] Rx#: [id number] Oral 400 Output: Urine 2100 720 Other: Voiding Method Bedside Commode Bedside Commode # Voids 1 # Bowel Movements 1 1 - Exam General Appearance: Obese alert cooperated no acute respiratory distress. Neck HEENT: Supple, no lymphadenopathy, no thyroid enlargement, no carotid bruits. Lungs: Clear to auscultation without crackles or wheezes no rhonchi, no deformity. Chest Wall: Chest wall normal expansion with deep inspiration no tenderness and no deformity was found on exam, no costochondral pain or discomfort. Heart: Regular rate and rhythm, S1, S2 normal, no murmur, rub or gallop. Back: Symmetric, no curvature, ROM normal, no CVA tenderness. Abdomen: Soft, non-tender, bowel sounds active all four quadrants, no masses, no organomegaly. Extremities: 2+ edema with slight discoloration from the knee down decreased pulse in dorsalis pedis and posterior tibial. Pain and tenderness to the plantar surface left foot Pulses: 2+ and symmetric. Skin: Skin color, texture, tugor normal, no rashes or lesions. Neurologic: Alert oriented x3 cranial nerves II through XII intact, no motor deficit, no abnormal balance or gait. - Labs CBC & Chem 7: 01/19/19 05:00 01/19/19 05:00 Labs: Abnormal Lab Results - Last 24 Hours (Table) 01/18/19 01/18/19 01/18/19 Range/Units 11:31 17:07 21:07 RDW (11.5-15.5) % Potassium (3.5-5.1) mmol/L Chloride (98-107) mmol/L BUN (9-20) mg/dL POC Glucose (mg/dL) 234 H 202 H 259 H (75-99) mg/dL 01/19/19 01/19/19 Range/Units 05:00 05:00 RDW 16.6 H (11.5-15.5) % Potassium 3.3 L (3.5-5.1) mmol/L Chloride 108 H (98-107) mmol/L BUN 21 H (9-20) mg/dL POC Glucose (mg/dL) (75-99) mg/dL Microbiology - Last 24 Hours (Table) 01/17/19 13:48 Urine Culture - Preliminary Urine,Catheterized Group D Enterococcus Assessment and Plan Plan: 1 severe CAD: Post angioplasty and stent placement, patient is doing well continue secondary prevention with Jemal, beta yusuf, statin and will and antiplatelet agent. 2 elective intubation for the procedure and extubated successfully afterward he is back on his regular inhaler and nebulizer still on O2. 3 A. fib with RVR with paroxysmal atrial fibrillation: Patient pulse rates under control currently still on Coreg 25 mg twice a day and we'll resume eliquis 5 mg twice a day. 4 COPD: Was on DuoNeb and Pulmicort continue O2. 5 anasarca and diastolic congestive heart failure: Has been on losartan, Norvasc and furosemide along with Coreg. 6 hyperlipidemia: Continue patient on atorvastatin higher dose. 7 severe hypertension: Resume clonidine 0.2 mg twice a day along with amlodipine 10 mg daily losartan 100 mg daily Coreg and furosemide. 8 chronic kidney disease: Stage II, has been stable lately repeat BUN/ creatinine next 24 hours. 9 recurrent depression: Has been doing well on Zoloft 100 mg daily. 10 type 2 diabetes: Has been on insulin 7030 65 units with breakfast 105 at dinnertime patient still on Levemir 30 units at bedtime as well continue Accu- Chek with sliding scales coverage. 11. Plantar fasciitis. CODE STATUS: Full code. Discharge plan: Return home Impression and plan of care have been directed as dictated by the signing physician. Farheen Knapp nurse practitioner acting as scribe for signing physician.
== END 2019-01-19 12:03 | disposition home or self-care (01) | DRG 247 ==
LOC: CATHCVL 06:33 → 2SICU 12:36 → CATHCVL 12:36 → 2SICU 12:59
PROVIDERS: ADMIT Internal Medicine Interventional Cardiology; ATTEND Internal Medicine Interventional Cardiology
PROC: 027135Z Dilation of Coronary Artery, Two Arteries with Two Drug-eluting Intraluminal Devices, Percutaneous Approach (ICD-10-PCS; principal; 2019-01-17 10:46)
DX: I25.119 Atherosclerotic heart disease of native coronary artery with unspecified angina pectoris (principal); I50.32 Chronic diastolic (congestive) heart failure; I13.0 Hypertensive heart and chronic kidney disease with heart failure and stage 1 through stage 4 chronic kidney disease, or unspecified chronic kidney disease; L97.909 Non-pressure chronic ulcer of unspecified part of unspecified lower leg with unspecified severity; Z68.42 Body mass index [BMI] 45.0-49.9, adult; J98.11 Atelectasis; I25.82 Chronic total occlusion of coronary artery; J44.9 Chronic obstructive pulmonary disease, unspecified; E11.22 Type 2 diabetes mellitus with diabetic chronic kidney disease; E66.01 Morbid (severe) obesity due to excess calories; I83.009 Varicose veins of unspecified lower extremity with ulcer of unspecified site; I48.0 Paroxysmal atrial fibrillation; N18.3 Chronic kidney disease, stage 3 (moderate); F41.0 Panic disorder [episodic paroxysmal anxiety]; N40.0 Benign prostatic hyperplasia without lower urinary tract symptoms; E78.5 Hyperlipidemia, unspecified; F41.1 Generalized anxiety disorder; I25.84 Coronary atherosclerosis due to calcified coronary lesion; M19.90 Unspecified osteoarthritis, unspecified site; I16.0 Hypertensive urgency; G43.909 Migraine, unspecified, not intractable, without status migrainosus; F32.9 Major depressive disorder, single episode, unspecified; Z79.899 Other long term (current) drug therapy; Z79.01 Long term (current) use of anticoagulants; Z79.82 Long term (current) use of aspirin; Z79.4 Long term (current) use of insulin; Z86.73 Personal history of transient ischemic attack (TIA), and cerebral infarction without residual deficits; Z87.01 Personal history of pneumonia (recurrent); Z87.442 Personal history of urinary calculi; Z98.42 Cataract extraction status, left eye; Z98.41 Cataract extraction status, right eye; Z87.730 Personal history of (corrected) cleft lip and palate; Z80.9 Family history of malignant neoplasm, unspecified; Z82.49 Family history of ischemic heart disease and other diseases of the circulatory system
CPT/HCPCS: 36600; 71045; 80048; 82805; 83735; 84100; 85025; 85027; 87077; 87086; 87186; C1874

== ENCOUNTER 2019-01-20 01:48 | Emergency (ER) | payer MEDICARE ==
[2019-01-20 02:49] LABS: Appearance,Urine Bloody (Clear); Color,Urine Red
--- NOTE | 2019-01-20 02:50 | ED ---
Male Urogenital HPI - General Source: patient Mode of arrival: ambulatory Limitations: no limitations <Tamar Quevedo - Last Filed: 01/20/19 04:04> <Gaston Manriquez - Last Filed: 01/20/19 08:15> - General Chief complaint: Urogenital Stated complaint: Urine Retention, bleeding Time Seen by Provider: 01/20/19 02:09 - History of Present Illness Initial comments: 78-year-old male patient presents to the emergency department today for evaluation of suprapubic abdominal pain and hematuria. Patient states he started passing blood in his urine this evening. Patient states he was discharged today after having 2 stents placed in his heart. Patient does take Eliquis but has been taking this for quite some time. Patient states he did have a Fierro catheter inserted during his admission. Patient states when he took about he did have issues with urinary retention he did have to do a straight cath prior to discharge. Patient denies any dysuria and states he is urinating frequently. Patient states it is mostly small amounts at a time. He denies any fevers or chills with this. Denies any nausea or vomiting. Denies any flank pain. Patient denies any recent rash, shortness breath, chest pain, diarrhea, constipation, numbness, tingling, dizziness, weakness, headache, visual changes, or any other complaints. (Tamar Quevedo) - Related Data Home Medications Medication Instructions Recorded Confirmed ALPRAZolam [Xanax] 0.25 mg PO HS 05/05/16 01/20/19 Atorvastatin [Lipitor] 10 mg PO HS 05/05/16 01/20/19 Finasteride [Proscar] 5 mg PO DAILY 05/05/16 01/20/19 Potassium Chloride [K-Tab ER] 10 meq PO DAILY 05/05/16 01/20/19 Aspirin [Adult Low Dose Aspirin EC] 81 mg PO DAILY 06/03/18 01/20/19 Carvedilol 25 mg PO BID 06/03/18 01/20/19 DULoxetine HCL [Cymbalta] 30 mg PO DAILY 06/03/18 01/20/19 Isosorbide Mononitrate ER [Imdur] 30 mg PO DAILY 06/03/18 01/20/19 Furosemide [Lasix] 40 mg PO 0800,1200 12/08/18 01/20/19 Insuln Asp Prt/Insulin Aspart 35 unit SQ AC-SUPPER PRN 12/08/18 01/20/19 [NovoLOG MIX 70-30 VIAL] Insuln Asp Prt/Insulin Aspart 65 unit SQ AC-BRKFST 12/08/18 01/20/19 [NovoLOG MIX 70-30 VIAL] Sertraline HCl [Zoloft] 100 mg PO HS 12/08/18 01/20/19 amLODIPine [Norvasc] 10 mg PO DAILY 12/08/18 01/20/19 Insulin Degludec [Tresiba 30 units SQ HS 01/13/19 01/20/19 Flextouch U-100] Losartan Potassium [Cozaar] 100 mg PO DAILY 01/13/19 01/20/19 Previous Rx's Medication Instructions Recorded Apixaban [Eliquis] 2.5 mg PO BID #0 01/19/19 Ticagrelor [Brilinta] 90 mg PO BID #180 tab 01/19/19 cloNIDine HCL [Catapres] 0.3 mg PO TID #180 tab 01/19/19 hydrALAZINE HCL [Apresoline] 50 mg PO TID #180 tab 01/19/19 Allergies Allergy/AdvReac Type Severity Reaction Status Date / Time No Known Allergies Allergy Verified 01/20/19 02:00 Review of Systems ROS Other: All systems not noted in ROS Statement are negative. <Tamar Quevedo - Last Filed: 01/20/19 04:04> ROS Other: All systems not noted in ROS Statement are negative. <Gaston Manriquez - Last Filed: 01/20/19 08:15> ROS Statement: Those systems with pertinent positive or pertinent negative responses have been documented in the HPI. Past Medical History Past Medical History: Atrial Fibrillation, Heart Failure, Diabetes Mellitus, Hyperlipidemia, Hypertension, Osteoarthritis (OA) Additional Past Medical History / Comment(s): edema jeffrey lower legs that comes and goes,hx kidney stones, hx migraines, Pneumonia 2018, cleft palate - repair History of Any Multi-Drug Resistant Organisms: None Reported Past Surgical History: Heart Catheterization With Stent, Orthopedic Surgery, Tonsillectomy Additional Past Surgical History / Comment(s): left shoulder surgery, surgery jeffrey knees, rt hand surgery for fx fingers from work injury, left hand surgery fx finger from sports injury, jeffrey cataracts, Past Anesthesia/Blood Transfusion Reactions: No Reported Reaction Past Psychological History: Anxiety, Panic Disorder Smoking Status: Never smoker Past Alcohol Use History: None Reported Past Drug Use History: None Reported - Past Family History Father Family Medical History: No Reported History Additional Family Medical History / Comment(s): Father was a heavy smoker. He of a [place] at the age of 42yrs. Mother Family Medical History: Cancer Additional Family Medical History / Comment(s): . <Tamar Quevedo - Last Filed: 01/20/19 04:04> General Exam Limitations: no limitations General appearance: alert, in no apparent distress, other (Physical well- developed, well-nourished elderly male patient in no acute distress. Vital signs upon presentation are temperature 97.8F, pulse 63, respirations 18, blood pressure 186/84, pulse ox 98% on room air.) Eye exam: Present: normal appearance, PERRL, EOMI. Absent: scleral icterus, conjunctival injection, periorbital swelling ENT exam: Present: normal exam, normal oropharynx, mucous membranes moist Respiratory exam: Present: normal lung sounds bilaterally. Absent: respiratory distress, wheezes, rales, rhonchi, stridor Cardiovascular Exam: Present: regular rate, normal rhythm, normal heart sounds. Absent: systolic murmur, diastolic murmur, rubs, gallop, clicks GI/Abdominal exam: Present: soft, tenderness (suprapubic tenderness), normal bowel sounds. Absent: distended, guarding, rebound, rigid Back exam: Present: normal inspection. Absent: CVA tenderness (R), CVA tenderness (L) Neurological exam: Present: alert, oriented X3, CN II-XII intact Psychiatric exam: Present: normal affect, normal mood Skin exam: Present: warm, dry, intact, normal color. Absent: rash <Tamar Quevedo - Last Filed: 01/20/19 04:04> Vital Signs 01/20/19 01/20/19 01:56 04:01 Temperature 97.8 F 98.3 F Pulse Rate 63 88 Respiratory 18 20 Rate Blood Pressure 186/84 168/78 O2 Sat by Pulse 98 99 Oximetry Medical Decision Making <Tamar Quevedo - Last Filed: 01/20/19 04:04> <Gaston Manriquez - Last Filed: 01/20/19 08:15> - Medical Decision Making 78 old male patient presented to the emergency department today for evaluation of suprapubic pain and hematuria. Physical examination did reveal some mild superpubic tenderness. Urinalysis did reveal presence of a large amount of blood with greater than 182 red cells greater than 182 white cells. I did discuss the urinalysis findings with the chemical lab technician who states he saw no bacteria on the peripheral smear. This was sent for culture however we'll hold antibiotics at this time. We did do a bladder scan showed 700 mL of urine present. Insert a Fierro catheter, we did get out gross blood in the bag. Nursing staff did irrigate the bladder until urine was clear. Patient tolerated this well. We'll discharge home to follow-up with urology for further evaluation as soon as possible. He does see Dr. Alvarenga. Return parameters were discussed in detail. He verbalizes understanding and agrees with this plan (Tamar Quevedo) I saw this patient in conjunction with the physician city carrier assistant. I performed independent history and physical exam. Agree with case management. 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 Monitor bleeding. Return to the emergency department to become dizzy or weak. Follow-up with urologist for recheck as soon as possible. Follow-up through primary care physician for recheck in 1-2 days. Return to the emergency department immediately for any other new, worsening, or concerning symptoms. Referrals: Jason Colon MD [Primary Care Provider] - 1-2 days Bunny Alvarenga MD [STAFF PHYSICIAN] - 1-2 days
[2019-01-20 02:52] LABS: RBC,Urine >182 /hpf (0-5); WBC,Urine >182 /hpf (0-5)
[2019-01-20 04:17] VITALS: BP 168/78; PULSE 88; RESP 20; TEMP 98.3
== END 2019-01-20 04:22 | disposition home or self-care (01) ==
LOC: EC 01:48
DX: R33.9 Retention of urine, unspecified (principal); R31.9 Hematuria, unspecified; R10.30 Lower abdominal pain, unspecified; I48.91 Unspecified atrial fibrillation; I11.0 Hypertensive heart disease with heart failure; I50.9 Heart failure, unspecified; E11.9 Type 2 diabetes mellitus without complications; E78.5 Hyperlipidemia, unspecified; F41.0 Panic disorder [episodic paroxysmal anxiety]; Z87.442 Personal history of urinary calculi; Z95.5 Presence of coronary angioplasty implant and graft; Z79.82 Long term (current) use of aspirin; Z79.4 Long term (current) use of insulin; Z79.899 Other long term (current) drug therapy
CPT/HCPCS: 51702; 51798; 81001; 87086; 99284

== ENCOUNTER 2019-01-21 14:09 | Emergency (ER) | payer MEDICARE ==
[2019-01-21 16:02] VITALS: RESP 18
[2019-01-21 16:14] LABS: ALT 32 U/L (21-72); AST 37 U/L (17-59); Albumin 3.3 g/dL (3.5-5.0); Alkaline Phosphatase 67 U/L (38-126); Anion Gap 6 mmol/L; Blood Urea Nitrogen 21 mg/dL (9-20); Calcium 8.2 mg/dL (8.4-10.2); Carbon Dioxide 27 mmol/L (22-30); Chloride 109 mmol/L (98-107); Glucose 160 mg/dL (74-99); Sodium 142 mmol/L (137-145); Total Protein 6.5 g/dL (6.3-8.2)
--- NOTE | 2019-01-21 16:16 | ED ---
General Adult HPI - General Chief complaint: Abdominal Pain Stated complaint: Trouble urinating Time Seen by Provider: 01/21/19 14:25 Source: patient, RN notes reviewed Mode of arrival: ambulatory Limitations: no limitations - History of Present Illness Initial comments: 78-year-old male presents to the emergency department for a chief complaint of gross hematuria and urinary retention. Patient had a heart catheterization done 4 days ago. He was released from the hospital 3 days ago. Patient states at the time he is released he had difficulty urinating and had to be straight cathed. He started to have hematuria at that time which was attributed to catheterization. Patient then presented to the emergency department yesterday for inability to urinate and passing clots. Bladder was irrigated at that time and khoury catheter was placed. However, patient states he is having suprapubic pressure buildup and cannot urinate again. He states he was bleeding a lot. He states he started to feel somewhat unsteady because of this it is concerned about the blood loss. Patient has no other complaints at this time including shortness of breath, chest pain, abdominal pain, nausea or vomiting, headache, or visual changes. - Related Data Home Medications Medication Instructions Recorded Confirmed Atorvastatin [Lipitor] 10 mg PO HS 05/05/16 01/21/19 Finasteride [Proscar] 5 mg PO DAILY 05/05/16 01/21/19 Carvedilol 25 mg PO BID 06/03/18 01/21/19 DULoxetine HCL [Cymbalta] 30 mg PO DAILY 06/03/18 01/21/19 Isosorbide Mononitrate ER [Imdur] 30 mg PO DAILY 06/03/18 01/21/19 Furosemide [Lasix] 40 mg PO DAILY@0800,1200 12/08/18 01/21/19 Insuln Asp Prt/Insulin Aspart 60 unit SQ AC-BRKFST 12/08/18 01/21/19 [NovoLOG MIX 70-30 VIAL] Sertraline HCl [Zoloft] 100 mg PO HS 12/08/18 01/21/19 amLODIPine [Norvasc] 10 mg PO DAILY 12/08/18 01/21/19 Insulin Degludec [Tresiba 30 units SQ HS 01/13/19 01/21/19 Flextouch U-100] Apixaban [Eliquis] 5 mg PO BID 01/21/19 01/21/19 Brinzolamide/Brimonidine Tart 1 drop RIGHT EYE TID 01/21/19 01/21/19 [Simbrinza 1%-0.2% Eye Drops] Carboxymethyl/Gly/Poly80/Pf 1 dropper BOTH EYES HS 01/21/19 01/21/19 [Refresh Optive Kevin-3 Drops] Latanoprost/Pf [Latanoprost 0.005% 1 drop BOTH EYES HS 01/21/19 01/21/19 Eye Drop] Previous Rx's Medication Instructions Recorded Ticagrelor [Brilinta] 90 mg PO BID #180 tab 01/19/19 cloNIDine HCL [Catapres] 0.3 mg PO TID #180 tab 01/19/19 hydrALAZINE HCL [Apresoline] 50 mg PO TID #180 tab 01/19/19 Allergies Allergy/AdvReac Type Severity Reaction Status Date / Time No Known Allergies Allergy Verified 01/21/19 14:49 Review of Systems ROS Statement: Those systems with pertinent positive or pertinent negative responses have been documented in the HPI. ROS Other: All systems not noted in ROS Statement are negative. Past Medical History Past Medical History: Atrial Fibrillation, Heart Failure, Diabetes Mellitus, Hyperlipidemia, Hypertension, Osteoarthritis (OA) Additional Past Medical History / Comment(s): edema jeffrey lower legs that comes and goes,hx kidney stones, hx migraines, Pneumonia 2018, cleft palate - repair History of Any Multi-Drug Resistant Organisms: None Reported Past Surgical History: Heart Catheterization With Stent, Orthopedic Surgery, Tonsillectomy Additional Past Surgical History / Comment(s): left shoulder surgery, surgery jeffrey knees, rt hand surgery for fx fingers from work injury, left hand surgery fx finger from sports injury, jeffrey cataracts, Past Anesthesia/Blood Transfusion Reactions: No Reported Reaction Past Psychological History: Anxiety, Panic Disorder Smoking Status: Never smoker Past Alcohol Use History: None Reported Past Drug Use History: None Reported - Past Family History Father Family Medical History: No Reported History Additional Family Medical History / Comment(s): Father was a heavy smoker. He of a [place] at the age of 42yrs. Mother Family Medical History: Cancer Additional Family Medical History / Comment(s): . General Exam Limitations: no limitations Course Vital Signs 01/21/19 01/21/19 14:11 16:01 Temperature 97.6 F 97.1 F L Pulse Rate 81 68 Respiratory 20 18 Rate Blood Pressure 228/91 137/68 O2 Sat by Pulse 97 95 Oximetry Medical Decision Making - Medical Decision Making 78-year-old male presents to the emergency department for a chief complaint of gross hematuria with urinary retention. Khoury catheter placed yesterday in the emergency department. Patient is on Eliquis for atrial fibrillation and had 2 heart stents placed 4 days ago. On presentation patient unable to urinate. Blood noted in catheter. Patient does have greater than 533 mL on bladder scan. Attempted to lavage bladder of clots and we did get 600 mL of urine out of bladder. However unable to remove clots which were confirmed by ultrasound. Patient then began retaining urine again. At this point did attempt to irrigate once more but unable to remove all urine. Dr. Escalona discussed this case with urology. At this time, urology unable to come in the hospital, no urology coverage at this time. Dr Alvarenga commended putting in a larger catheter to try to have urine flow or to transfer patient. We did utilize an 18 but patient still having significant urinary retention. Patient will be transferred at this time. Patient transferred to [facility] per request of patient. - Lab Data Result diagrams: 01/21/19 15:32 01/21/19 15:32 Lab Results 01/21/19 01/21/19 01/21/19 Range/Units 15:32 15:32 15:32 WBC 10.9 H (3.8-10.6) k/uL RBC 4.56 (4.30-5.90) m/uL Hgb 13.5 (13.0-17.5) gm/dL Hct 41.4 (39.0-53.0) % MCV 90.8 (80.0-100.0) fL MCH 29.6 (25.0-35.0) pg MCHC 32.5 (31.0-37.0) g/dL RDW 16.5 H (11.5-15.5) % Plt Count 177 (150-450) k/uL Neutrophils % 81 % Lymphocytes % 9 % Monocytes % 6 % Eosinophils % 4 % Basophils % 0 % Neutrophils # 8.7 H (1.3-7.7) k/uL Lymphocytes # 1.0 (1.0-4.8) k/uL Monocytes # 0.6 (0-1.0) k/uL Eosinophils # 0.4 (0-0.7) k/uL Basophils # 0.0 (0-0.2) k/uL Anisocytosis Slight PT 10.8 (9.0-12.0) sec INR 1.0 (<1.2) APTT 26.0 (22.0-30.0) sec Sodium 142 (137-145) mmol/L Potassium 4.6 (3.5-5.1) mmol/L Chloride 109 H (98-107) mmol/L Carbon Dioxide 27 (22-30) mmol/L Anion Gap 6 mmol/L BUN 21 H (9-20) mg/dL Creatinine 0.83 (0.66-1.25) mg/dL Est GFR (CKD-EPI)AfAm >90 (>60 ml/min/1.73 sqM) Est GFR (CKD-EPI)NonAf 86 (>60 ml/min/1.73 sqM) Glucose 160 H (74-99) mg/dL POC Glucose (mg/dL) (75-99) mg/dL POC Glu Overhead Door Technician ID Calcium 8.2 L (8.4-10.2) mg/dL Total Bilirubin 1.0 (0.2-1.3) mg/dL AST 37 (17-59) U/L ALT 32 (21-72) U/L Alkaline Phosphatase 67 (38-126) U/L Total Protein 6.5 (6.3-8.2) g/dL Albumin 3.3 L (3.5-5.0) g/dL 01/21/19 Range/Units 18:14 WBC (3.8-10.6) k/uL RBC (4.30-5.90) m/uL Hgb (13.0-17.5) gm/dL Hct (39.0-53.0) % MCV (80.0-100.0) fL MCH (25.0-35.0) pg MCHC (31.0-37.0) g/dL RDW (11.5-15.5) % Plt Count (150-450) k/uL Neutrophils % % Lymphocytes % % Monocytes % % Eosinophils % % Basophils % % Neutrophils # (1.3-7.7) k/uL Lymphocytes # (1.0-4.8) k/uL Monocytes # (0-1.0) k/uL Eosinophils # (0-0.7) k/uL Basophils # (0-0.2) k/uL Anisocytosis PT (9.0-12.0) sec INR (<1.2) APTT (22.0-30.0) sec Sodium (137-145) mmol/L Potassium (3.5-5.1) mmol/L Chloride (98-107) mmol/L Carbon Dioxide (22-30) mmol/L Anion Gap mmol/L BUN (9-20) mg/dL Creatinine (0.66-1.25) mg/dL Est GFR (CKD-EPI)AfAm (>60 ml/min/1.73 sqM) Est GFR (CKD-EPI)NonAf (>60 ml/min/1.73 sqM) Glucose (74-99) mg/dL POC Glucose (mg/dL) 132 H (75-99) mg/dL POC Glu Overhead Door Technician ID Nora Stone Calcium (8.4-10.2) mg/dL Total Bilirubin (0.2-1.3) mg/dL AST (17-59) U/L ALT (21-72) U/L Alkaline Phosphatase (38-126) U/L Total Protein (6.3-8.2) g/dL Albumin (3.5-5.0) g/dL Disposition Clinical Impression: Urinary retention, Gross hematuria Disposition: OTHER INSTITUTION NOT DEFINED Condition: Fair Is patient prescribed a controlled substance at d/c from ED?: No Referrals: Jason Colon MD [Primary Care Provider] - 1-2 days Time of Disposition: 18:34 - Out of Hospital Transfer - Req. Specs Out of Hospital Transfer - Requested Specifics: Other Emergency Center ([facility])
[2019-01-21 16:20] LABS: Prothrombin Time 10.8 sec (9.0-12.0)
[2019-01-21 16:30] LABS: Potassium 4.6 mmol/L (3.5-5.1)
[2019-01-21 16:31] LABS: Anisocytosis Slight; Basophils % (A) 0 %; Eosinophils # (A) 0.4 k/uL (0-0.7); Eosinophils % (A) 4 %; HCT 41.4 % (39.0-53.0); HGB 13.5 gm/dL (13.0-17.5); Lymphocytes % (A) 9 %; MCH 29.6 pg (25.0-35.0); MCHC 32.5 g/dL (31.0-37.0); MCV 90.8 fL (80.0-100.0); Monocytes # (A) 0.6 k/uL (0-1.0); Monocytes % (A) 6 %; Neutrophils # (A) 8.7 k/uL (1.3-7.7); Neutrophils % (A) 81 %; Platelet Count 177 k/uL (150-450); RBC 4.56 m/uL (4.30-5.90); RDW 16.5 % (11.5-15.5); WBC 10.9 k/uL (3.8-10.6)
[2019-01-21 18:23] LABS: Glucose,Whole Blood 132 mg/dL (75-99)
[2019-01-21 20:07] VITALS: BP 135/87; PULSE 87; TEMP 98.1
--- NOTE | 2019-01-24 03:32 | CDI ---
Dear Tito CALL: Please do addendum Physical Examination. Thank you, Hermann Warren, Heel Shaver. If you have any questions, please contact Data Software Engineer at [phone]. [facility]
== END 2019-01-21 20:07 | disposition short-term general hospital (02) ==
LOC: EC 14:09
DX: R31.0 Gross hematuria (principal); R33.9 Retention of urine, unspecified; I48.91 Unspecified atrial fibrillation; E78.5 Hyperlipidemia, unspecified; I11.0 Hypertensive heart disease with heart failure; I50.9 Heart failure, unspecified; E11.9 Type 2 diabetes mellitus without complications; F41.0 Panic disorder [episodic paroxysmal anxiety]; Z79.01 Long term (current) use of anticoagulants; Z79.4 Long term (current) use of insulin; Z87.730 Personal history of (corrected) cleft lip and palate; Z79.899 Other long term (current) drug therapy; Z96.0 Presence of urogenital implants; Z95.5 Presence of coronary angioplasty implant and graft
CPT/HCPCS: 36415; 80053; 85025; 85610; 85730; 99285

== ENCOUNTER → 2019-02-02 | Outpatient (CLI) | payer MEDICARE ==
[2019-02-02 08:17] LABS: Anisocytosis Slight; HCT 27.3 % (39.0-53.0); Hypochromasia Marked; MCH 28.9 pg (25.0-35.0); MCV 90.3 fL (80.0-100.0); Mean Platelet Volume 7.5; Platelet Count 265 k/uL (150-450); Poikilocytosis Slight; RBC 3.03 m/uL (4.30-5.90); RDW 16.1 % (11.5-15.5); WBC 10.6 k/uL (3.8-10.6)
[2019-02-02 08:22] LABS: HGB 8.7 gm/dL (13.0-17.5)
[2019-02-02 17:43] LABS: Anion Gap 7.9 mmol/L (4.00-12.00); Calcium 8.3 mg/dL (8.7-10.3); Carbon Dioxide 26.1 mmol/L (21.6-31.8); Potassium 4.1 mmol/L (3.5-5.5)
== END ==
LOC: LABWHC1 07:46
PROVIDERS: ATTEND Internal Medicine Interventional Cardiology
DX: I63.9 Cerebral infarction, unspecified (principal)
CPT/HCPCS: 36415; 80048; 85027

== ENCOUNTER 2019-07-16 05:36 | Emergency (ER) | payer MEDICARE ==
--- NOTE | 2019-07-16 06:29 | ED ---
General Adult HPI - General Chief complaint: Extremity Problem,Nontraumatic Stated complaint: Rt ankle pain Time Seen by Provider: 07/16/19 05:56 Source: patient, RN notes reviewed, old records reviewed Mode of arrival: ambulatory Limitations: no limitations - History of Present Illness Initial comments: 79-year-old male patient with past medical history of CHF, CVA, gout presents to ED with right ankle pain which began last night. Patient reports that this feels identical to couch which she has experienced in the past. Patient denies any chest pain or shortness of breath. Patient denies any pain in posterior calf, posterior knee region. Pain is limited to the right anterior ankle. Patient is ambulatory. Denies any other complaints at this time. Systemic: Pt denies fatigue, fever/chills, rash. Pt denies weakness, night sweats, weight loss. Neuro: Pt denies headache, visual disturbances, syncope or pre-syncope. HEENT: Pt denies ocular discharge or irritation, otalgia, rhinorrhea, pharyngitis or notable lymphadenopathy. Cardiopulmonary: Pt denies chest pain, SOB, heart palpitations, dyspnea on exertion. Abdominal/GI: Pt denies abdominal pain, n/v/d. : Pt denies dysuria, burning w/ urination, frequency/urgency. Denies new onset urinary or bowel incontinence. MSK: Pt denies myalgia, loss of strength or function in extremities. Neuro: Pt denies new onset weakness, paresthesias. - Related Data Home Medications Medication Instructions Recorded Confirmed Atorvastatin [Lipitor] 10 mg PO HS 05/05/16 01/21/19 Finasteride [Proscar] 5 mg PO DAILY 05/05/16 01/21/19 Carvedilol 25 mg PO BID 06/03/18 01/21/19 DULoxetine HCL [Cymbalta] 30 mg PO DAILY 06/03/18 01/21/19 Isosorbide Mononitrate ER [Imdur] 30 mg PO DAILY 06/03/18 01/21/19 Furosemide [Lasix] 40 mg PO DAILY@0800,1200 12/08/18 01/21/19 Insuln Asp Prt/Insulin Aspart 60 unit SQ AC-BRKFST 12/08/18 01/21/19 [NovoLOG MIX 70-30 VIAL] Sertraline HCl [Zoloft] 100 mg PO HS 12/08/18 01/21/19 amLODIPine [Norvasc] 10 mg PO DAILY 12/08/18 01/21/19 Insulin Degludec [Tresiba 30 units SQ HS 01/13/19 01/21/19 Flextouch U-100] Apixaban [Eliquis] 5 mg PO BID 01/21/19 01/21/19 Brinzolamide/Brimonidine Tart 1 drop RIGHT EYE TID 01/21/19 01/21/19 [Simbrinza 1%-0.2% Eye Drops] Carboxymethyl/Gly/Poly80/Pf 1 dropper BOTH EYES HS 01/21/19 01/21/19 [Refresh Optive Kevin-3 Drops] Latanoprost/Pf [Latanoprost 0.005% 1 drop BOTH EYES HS 01/21/19 01/21/19 Eye Drop] Previous Rx's Medication Instructions Recorded Ticagrelor [Brilinta] 90 mg PO BID #180 tab 01/19/19 cloNIDine HCL [Catapres] 0.3 mg PO TID #180 tab 01/19/19 hydrALAZINE HCL [Apresoline] 50 mg PO TID #180 tab 01/19/19 Indomethacin [Indocin] 50 mg PO Q8HR 3 Days #9 capsule 07/16/19 Allergies Allergy/AdvReac Type Severity Reaction Status Date / Time No Known Allergies Allergy Verified 01/21/19 14:49 Review of Systems ROS Statement: Those systems with pertinent positive or pertinent negative responses have been documented in the HPI. ROS Other: All systems not noted in ROS Statement are negative. Past Medical History Past Medical History: Atrial Fibrillation, Heart Failure, Diabetes Mellitus, Hyperlipidemia, Hypertension, Osteoarthritis (OA) Additional Past Medical History / Comment(s): edema jeffrey lower legs that comes and goes,hx kidney stones, hx migraines, Pneumonia 2018, cleft palate - repair History of Any Multi-Drug Resistant Organisms: None Reported Past Surgical History: Heart Catheterization With Stent, Orthopedic Surgery, Tonsillectomy Additional Past Surgical History / Comment(s): left shoulder surgery, surgery jeffrey knees, rt hand surgery for fx fingers from work injury, left hand surgery fx finger from sports injury, jeffrey cataracts, Past Anesthesia/Blood Transfusion Reactions: No Reported Reaction Past Psychological History: Anxiety, Panic Disorder Smoking Status: Never smoker Past Alcohol Use History: None Reported Past Drug Use History: None Reported - Past Family History Father Family Medical History: No Reported History Additional Family Medical History / Comment(s): Father was a heavy smoker. He of a [place] at the age of 42yrs. Mother Family Medical History: Cancer Additional Family Medical History / Comment(s): . General Exam - General Exam Comments Initial Comments: Constitutional: NAD, AOX3, Pt has pleasant affect. HEENT: NC/AT, trachea midline, neck supple, no lymphadenopathy. Posterior pharynx non erythematous, without exudates. External ears appear normal, without discharge. Mucous membranes moist. Eyes PERRLA, EOM intact. There is no scleral icterus. No pallor noted. Cardiopulmonary: RRR, no murmurs, rubs or gallops, no JVD noted. Lungs CTAB in anterior and posterior [place]. No peripheral edema. Abdominal exam: Abdomen soft and non-distended. Abdomen non-tender to palpation in all 4 quadrants. Bowel sounds active in LLQ. No hepatosplenomegaly. No ecchymosis Neuro: CN II-XII grossly intact. No nuchal rigidity. No raccon eyes, no luna sign, no hemotympanum. No cervical spinal tenderness. MSK: Anterior right ankle moderately tender to palpation, capillary refill less than 2 seconds, distal pulses intact and equal, plantar dorsiflexion of ankle intact. No posterior calf tenderness bilaterally, homans sign negative bilaterally. Posterior tibialis and radial pulse +2 bilaterally. Sensation intact in upper and lower extremities. Full active ROM in upper and lower extremities, 5/5 stregnth. Limitations: no limitations Course Vital Signs 07/16/19 05:39 Temperature 97.9 F Pulse Rate 81 Respiratory 20 Rate Blood Pressure 148/76 O2 Sat by Pulse 97 Oximetry Medical Decision Making - Medical Decision Making 79-year-old male patient history of gout presents to ED with chief complaint of right ankle pain. Patient displayed that this is caused by his gout. Patient vital signs stable, afebrile. Physical exam displayed moderately tender anterior ankle, neurovascularly intact. Plain films displayed mild amount of soft tissue swelling. No erythema or skin changes. No posterior calf tenderness. No chest pain shortness of breath. Patient was treated with indomethacin, follow up with primary care provider and orthopedic consult symptoms persist. Case discussed with Dr. Neves. Disposition Clinical Impression: Arthralgia Disposition: HOME SELF-CARE Condition: Stable Additional Instructions: Patient to adhere to previously discussed treatment plan and will take medication(s) as directed. Patient to follow up with PCP in 1-2 days. Patient to return to ED if symptoms do not improve. Follow-up with primary care provider today, return to ER if conditions worsen. Follow-up with orthopedic consult symptoms persist. Prescriptions: Indomethacin [Indocin] 50 mg PO Q8HR 3 Days #9 capsule Is patient prescribed a controlled substance at d/c from ED?: No Referrals: Jason Colon MD [Primary Care Provider] - 1-2 days Edy Reina DO [Doctor of Osteopathic Medicine] - 1-2 days
--- NOTE | 2019-07-16 06:29 | XR ---
EXAM: XR Right Ankle CLINICAL HISTORY: ITS.REASON XR Reason: Pain TECHNIQUE: Two views of the right ankle. COMPARISON: No relevant prior studies available. FINDINGS: Bones/joints: No definite acute fracture. Degenerative changes and osteopenia. Soft tissues: Soft tissue swelling. IMPRESSION: No definite acute fracture.
[2019-07-16] MEDS ORDERED: INDOMETHACIN 25 MG CAP PO STA (06:34)
[2019-07-16 06:42] VITALS: BP 138/78; PULSE 83; RESP 16; TEMP 98.4
== END 2019-07-16 06:58 | disposition home or self-care (01) ==
LOC: EC 05:36
DX: M25.571 Pain in right ankle and joints of right foot (principal); I48.91 Unspecified atrial fibrillation; I11.0 Hypertensive heart disease with heart failure; I50.9 Heart failure, unspecified; E11.9 Type 2 diabetes mellitus without complications; E78.5 Hyperlipidemia, unspecified; F41.9 Anxiety disorder, unspecified; Z86.73 Personal history of transient ischemic attack (TIA), and cerebral infarction without residual deficits; Z87.39 Personal history of other diseases of the musculoskeletal system and connective tissue; Z95.5 Presence of coronary angioplasty implant and graft; Z79.4 Long term (current) use of insulin; Z79.01 Long term (current) use of anticoagulants; Z79.899 Other long term (current) drug therapy
CPT/HCPCS: 99284

== ENCOUNTER → 2020-02-04 | Outpatient (CLI) | payer MEDICARE ==
--- NOTE | 2020-02-04 10:48 | XR ---
EXAMINATION TYPE: XR chest 2V DATE OF EXAM: 02/04/2020 COMPARISON: Prior chest x-ray January 19, 2019 HISTORY: CHF and shortness of breath. TECHNIQUE: Frontal and lateral views of the chest are obtained. FINDINGS: Low lung volumes and elevated right hemidiaphragm redemonstrated. There is no new suspicio us focal air space opacity, pleural effusion, or pneumothorax seen. The cardiac silhouette size bridgette ins enlarged with mild central vascular congestion thought present. The osseous structures are inta ct. IMPRESSION: Suspect CHF exacerbation as there is cardiomegaly with new mild central vascular congest ion identified.
== END | disposition home or self-care (01) ==
LOC: RADXRMAIN 10:23
PROVIDERS: ATTEND Nurse Practitioner Gerontology
DX: I50.22 Chronic systolic (congestive) heart failure (principal)
CPT/HCPCS: 71046

== ENCOUNTER 2020-09-12 14:39 | Inpatient (IN) | payer MEDICARE ==
[2020-09-12 15:28] LABS: Basophils # (A) 0.1 k/uL (0-0.2); Basophils % (A) 1 %; Eosinophils # (A) 0.3 k/uL (0-0.7); Eosinophils % (A) 4 %; HCT 45.9 % (39.0-53.0); HGB 14.7 gm/dL (13.0-17.5); Lymphocytes # (A) 0.9 k/uL (1.0-4.8); Lymphocytes % (A) 11 %; MCH 29.3 pg (25.0-35.0); MCHC 32.1 g/dL (31.0-37.0); MCV 91.3 fL (80.0-100.0); Mean Platelet Volume 7.8; Monocytes # (A) 0.5 k/uL (0-1.0); Monocytes % (A) 7 %; Neutrophils # (A) 5.8 k/uL (1.3-7.7); Neutrophils % (A) 76 %; Platelet Count 163 k/uL (150-450); RBC 5.02 m/uL (4.30-5.90); RDW 15.9 % (11.5-15.5); WBC 7.6 k/uL (3.8-10.6)
--- NOTE | 2020-09-12 15:32 | ED ---
General Adult HPI - General Stated complaint: SOB Time Seen by Provider: 09/12/20 14:51 Source: patient, family, RN notes reviewed, old records reviewed Mode of arrival: wheelchair Limitations: no limitations - History of Present Illness Initial comments: 80-year-old male presenting for evaluation of dyspnea and weight gain. History of congestive heart failure. At that by primary care physician for weight gain of greater than 20 pounds in worsening dyspnea over the past one week. Patient denies cough or fever. He reports abdominal edema as well as lower extremity edema. He cannot sleep flat reports orthopnea. Denies central chest pain currently over the past one week. No fever. - Related Data Home Medications Medication Instructions Recorded Confirmed Atorvastatin [Lipitor] 10 mg PO HS 05/05/16 01/21/19 Finasteride [Proscar] 5 mg PO DAILY 05/05/16 01/21/19 DULoxetine HCL [Cymbalta] 30 mg PO DAILY 06/03/18 01/21/19 Isosorbide Mononitrate ER [Imdur] 30 mg PO DAILY 06/03/18 01/21/19 carvediloL [Carvedilol] 25 mg PO BID 06/03/18 01/21/19 Furosemide [Lasix] 40 mg PO DAILY@0800,1200 12/08/18 01/21/19 Insuln Asp Prt/Insulin Aspart 60 unit SQ [id number] 12/08/18 01/21/19 [NovoLOG MIX 70-30 VIAL] Sertraline HCl [Zoloft] 100 mg PO HS 12/08/18 01/21/19 amLODIPine [Norvasc] 10 mg PO DAILY 12/08/18 01/21/19 Insulin Degludec [Tresiba 30 units SQ HS 01/13/19 01/21/19 Flextouch U-100] Apixaban [Eliquis] 5 mg PO BID 01/21/19 01/21/19 Brinzolamide/Brimonidine Tart 1 drop RIGHT EYE TID 01/21/19 01/21/19 [Simbrinza 1%-0.2% Eye Drops] Carboxymethyl/Gly/Poly80/Pf 1 dropper BOTH EYES HS 01/21/19 01/21/19 [Refresh Optive Kevin-3 Drops] Latanoprost/Pf [Latanoprost 0.005% 1 drop BOTH EYES HS 01/21/19 01/21/19 Eye Drop] Previous Rx's Medication Instructions Recorded Ticagrelor [Brilinta] 90 mg PO BID #180 tab 01/19/19 cloNIDine HCL [Catapres] 0.3 mg PO TID #180 tab 01/19/19 hydrALAZINE HCL [Apresoline] 50 mg PO TID #180 tab 01/19/19 Indomethacin [Indocin] 50 mg PO Q8HR 3 Days #9 capsule 07/16/19 Allergies Allergy/AdvReac Type Severity Reaction Status Date / Time No Known Allergies Allergy Verified 01/21/19 14:49 Review of Systems ROS Statement: Those systems with pertinent positive or pertinent negative responses have been documented in the HPI. ROS Other: All systems not noted in ROS Statement are negative. Past Medical History Past Medical History: Atrial Fibrillation, Heart Failure, Diabetes Mellitus, Hyperlipidemia, Hypertension, Osteoarthritis (OA) Additional Past Medical History / Comment(s): edema jeffrey lower legs that comes and goes,hx kidney stones, hx migraines, Pneumonia 2018, cleft palate - repair History of Any Multi-Drug Resistant Organisms: None Reported Past Surgical History: Heart Catheterization With Stent, Orthopedic Surgery, Tonsillectomy Additional Past Surgical History / Comment(s): left shoulder surgery, surgery jeffrey knees, rt hand surgery for fx fingers from work injury, left hand surgery fx finger from sports injury, jeffrey cataracts, Past Anesthesia/Blood Transfusion Reactions: No Reported Reaction Past Psychological History: Anxiety, Panic Disorder Smoking Status: Never smoker Past Alcohol Use History: None Reported Past Drug Use History: None Reported - Past Family History Father Family Medical History: No Reported History Additional Family Medical History / Comment(s): Father was a heavy smoker. He of a [place] at the age of 42yrs. Mother Family Medical History: Cancer Additional Family Medical History / Comment(s): . General Exam Limitations: no limitations General appearance: alert, in distress Head exam: Present: atraumatic, normocephalic Eye exam: Present: normal appearance, PERRL ENT exam: Present: normal exam Neck exam: Present: normal inspection. Absent: tenderness, meningismus Respiratory exam: Present: respiratory distress, wheezes, rales, decreased breath sounds Cardiovascular Exam: Present: regular rate, irregular rhythm, other (Distant heart sounds) GI/Abdominal exam: Present: distended. Absent: tenderness, guarding, rebound Extremities exam: Present: pedal edema Neurological exam: Present: alert, oriented X3, CN II-XII intact. Absent: motor sensory deficit Psychiatric exam: Present: normal affect, normal mood Skin exam: Present: warm, dry, intact Course Vital Signs 09/12/20 09/12/20 09/12/20 14:51 16:00 16:37 Temperature 98.1 F Pulse Rate 65 64 66 Respiratory 18 20 18 Rate Blood Pressure 162/88 150/82 O2 Sat by Pulse 95 98 Oximetry 09/12/20 16:47 Temperature Pulse Rate 63 Respiratory 18 Rate Blood Pressure O2 Sat by Pulse Oximetry EKG Findings - EKG Comments: EKG Findings:: EKG, poor baseline, artifact, atrial fibrillation, rate of 73, QR S duration 86, QTC 517, I do not see any ST segment elevation Medical Decision Making - Medical Decision Making 80-year-old male sent in from primary care with weight gain, orthopnea, history of congestive heart failure. Patient has gained 20 pounds over the past week. His workup reveals normal CBC, CMP does show an elevated CO2 of 33 concerning for retention, he has a negative troponin, BNP is 505. Chest x-ray showed decreased airspace, right hemidiaphragm is elevated, suspect bilateral pleural effusions. Patient will be admitted with both pulmonology and cardiology on consult. Case has been discussed with Dr. Colon who will admit. - Lab Data Result diagrams: 09/12/20 15:09/12/20 15:01 Lab Results 09/12/20 09/12/20 09/12/20 Range/Units 15:01 15:01 15:01 WBC 7.6 (3.8-10.6) k/uL RBC 5.02 (4.30-5.90) m/uL Hgb 14.7 (13.0-17.5) gm/dL Hct 45.9 (39.0-53.0) % MCV 91.3 (80.0-100.0) fL MCH 29.3 (25.0-35.0) pg MCHC 32.1 (31.0-37.0) g/dL RDW 15.9 H (11.5-15.5) % Plt Count 163 (150-450) k/uL Neutrophils % 76 % Lymphocytes % 11 % Monocytes % 7 % Eosinophils % 4 % Basophils % 1 % Neutrophils # 5.8 (1.3-7.7) k/uL Lymphocytes # 0.9 L (1.0-4.8) k/uL Monocytes # 0.5 (0-1.0) k/uL Eosinophils # 0.3 (0-0.7) k/uL Basophils # 0.1 (0-0.2) k/uL PT 10.4 (9.0-12.0) sec INR 1.0 (<1.2) APTT 25.9 (22.0-30.0) sec Sodium 141 (137-145) mmol/L Potassium 3.6 (3.5-5.1) mmol/L Chloride 103 (98-107) mmol/L Carbon Dioxide 33 H (22-30) mmol/L Anion Gap 5 mmol/L BUN 19 (9-20) mg/dL Creatinine 0.81 (0.66-1.25) mg/dL Est GFR (CKD-EPI)AfAm >90 (>60 ml/min/1.73 sqM) Est GFR (CKD-EPI)NonAf 85 (>60 ml/min/1.73 sqM) Glucose 217 H (74-99) mg/dL Plasma Lactic Acid Carlos (0.7-2.0) mmol/L Calcium 8.3 L (8.4-10.2) mg/dL Magnesium 1.9 (1.6-2.3) mg/dL Total Bilirubin 0.8 (0.2-1.3) mg/dL AST 23 (17-59) U/L ALT 18 (4-49) U/L Alkaline Phosphatase 110 (38-126) U/L Troponin I (0.000-0.034) ng/mL NT-Pro-B Natriuret Pep pg/mL Total Protein 6.6 (6.3-8.2) g/dL Albumin 3.7 (3.5-5.0) g/dL 09/12/20 09/12/20 09/12/20 Range/Units 15:01 15:01 15:01 WBC (3.8-10.6) k/uL RBC (4.30-5.90) m/uL Hgb (13.0-17.5) gm/dL Hct (39.0-53.0) % MCV (80.0-100.0) fL MCH (25.0-35.0) pg MCHC (31.0-37.0) g/dL RDW (11.5-15.5) % Plt Count (150-450) k/uL Neutrophils % % Lymphocytes % % Monocytes % % Eosinophils % % Basophils % % Neutrophils # (1.3-7.7) k/uL Lymphocytes # (1.0-4.8) k/uL Monocytes # (0-1.0) k/uL Eosinophils # (0-0.7) k/uL Basophils # (0-0.2) k/uL PT (9.0-12.0) sec INR (<1.2) APTT (22.0-30.0) sec Sodium (137-145) mmol/L Potassium (3.5-5.1) mmol/L Chloride (98-107) mmol/L Carbon Dioxide (22-30) mmol/L Anion Gap mmol/L BUN (9-20) mg/dL Creatinine (0.66-1.25) mg/dL Est GFR (CKD-EPI)AfAm (>60 ml/min/1.73 sqM) Est GFR (CKD-EPI)NonAf (>60 ml/min/1.73 sqM) Glucose (74-99) mg/dL Plasma Lactic Acid Carlos 1.1 (0.7-2.0) mmol/L Calcium (8.4-10.2) mg/dL Magnesium (1.6-2.3) mg/dL Total Bilirubin (0.2-1.3) mg/dL AST (17-59) U/L ALT (4-49) U/L Alkaline Phosphatase (38-126) U/L Troponin I <0.012 (0.000-0.034) ng/mL NT-Pro-B Natriuret Pep 505 pg/mL Total Protein (6.3-8.2) g/dL Albumin (3.5-5.0) g/dL Disposition Clinical Impression: Atrial fibrillation, Congestive heart failure, Dyspnea Disposition: ADMITTED IP TO THIS [facility] Condition: Stable Is patient prescribed a controlled substance at d/c from ED?: No Referrals: Jason Colon MD [Primary Care Provider] - 1-2 days Decision to Admit Reason: Admit from EC Decision Date: 09/12/20 Decision Time: 17:04
[2020-09-12 15:35] LABS: Partial Thromboplastin Time 25.9 sec (22.0-30.0); Prothrombin Time 10.4 sec (9.0-12.0)
[2020-09-12 15:39] LABS: ALT 18 U/L (4-49); AST 23 U/L (17-59); African American GFR (CKD) >90 (>60 ml/min/1.73 sqM); Albumin 3.7 g/dL (3.5-5.0); Alkaline Phosphatase 110 U/L (38-126); Anion Gap 5 mmol/L; Blood Urea Nitrogen 19 mg/dL (9-20); Calcium 8.3 mg/dL (8.4-10.2); Carbon Dioxide 33 mmol/L (22-30); Chloride 103 mmol/L (98-107); Glucose 217 mg/dL (74-99); Magnesium 1.9 mg/dL (1.6-2.3); Non-African American GFR(CKD) 85 (>60 ml/min/1.73 sqM); Potassium 3.6 mmol/L (3.5-5.1); Sodium 141 mmol/L (137-145); Total Bilirubin 0.8 mg/dL (0.2-1.3); Total Protein 6.6 g/dL (6.3-8.2)
[2020-09-12] MEDS ORDERED: ALBUTEROL NEBULIZED 2.5 MG/3 ML INHALATION STA (16:23)
[2020-09-12] MEDS ORDERED: IPRATROPIUM-ALBUTEROL 3 ML NEB INHALATION STA (16:23)
[2020-09-12] MEDS ORDERED: FUROSEMIDE 10 MG/ML 4 ML VIAL IV STA (16:23)
[2020-09-12] MEDS ORDERED: DEXAMETHASONE SOD PHOSPHATE 10 MG/ML 1 ML VIAL IV STA (16:43)
[2020-09-12] MEDS ORDERED: NALOXONE 0.4 MG/ML 1 ML VIAL IV PRN (16:44)
[2020-09-12] MEDS ORDERED: HYDROcodone/APAP 5-325MG 1 EACH TAB PO PRN (16:44)
[2020-09-12] MEDS ORDERED: ALBUTEROL NEBULIZED 2.5 MG/3 ML INHALATION PRN ×2 (17:04→20:50)
[2020-09-12] MEDS ORDERED: cefTRIAXone IN SWFI 1,000 MG/10 ML SYRINGE IVP STA (17:05)
--- NOTE | 2020-09-12 17:21 | XR ---
EXAMINATION TYPE: XR chest 2V DATE OF EXAM: 09/12/2020 COMPARISON: 02/04/2020 HISTORY: Difficulty in breathing TECHNIQUE: Frontal and lateral views of the chest are obtained. FINDINGS: There is right sided diaphragmatic elevation seen chronic in nature. Underlying increased density may reflect developing infiltrate or atelectasis. No evidence for pneumothorax. No pleural effusion. The cardiac silhouette size is within normal limits. The osseous structures are grossly intact. IMPRESSION: 1. There is right sided diaphragmatic elevation seen chronic in nature. Underlying increased density may reflect developing infiltrate or atelectasis.
[2020-09-12] MEDS ORDERED: LORazepam 2 MG/ML INJ IV STA (18:41)
[2020-09-12] MEDS ORDERED: LORazepam 2 MG/ML INJ IV PRN (18:41)
[2020-09-12] MEDS ORDERED: ALPRAZolam 0.25 MG TAB PO PRN (20:50)
[2020-09-12] MEDS ORDERED: IOPAMIDOL CONTRAST (ORAL USE) VIAL PO PRN (20:54)
[2020-09-12 20:57] LABS: Glucose,Whole Blood 292 mg/dL (75-99)
[2020-09-12] MEDS ORDERED: FUROSEMIDE 10 MG/ML 4 ML VIAL IV SCH (21:00)
--- NOTE | 2020-09-12 21:28 | P.HPIM ---
History of Present Illness H&P Date: 09/12/20 Chief Complaint: Dyspnea and shortness of breath, anasarca, CHF exacerbation, abdominal pain 80-year-old male one of my office patient with severe morbid obesity with BMI of 48.8 who had long-standing history of COPD, CHF, insulin resistant type 2 diabetes, anasarca and chronic edema, CAD post PCI and stent placement in the past, kidney stone, recurrent pneumonia and severe neuropathy with recurrent vascular Celexa the lower extremity who was seen in the office last few weeks for recurrent cellulitis with worsening symptom which has improved last 2 weeks but he presented today with over 20 pounds weight gain with anasarca and swelling all over especially in lower extremity and abdominal region area with some thick edema of the abdominal wall. Patient was not able to ambulate and walk was in severe dyspnea and mild respiratory failure ended up coming to the emergency department with help where was seen and evaluated his chest x-ray showed large pleural effusion with questionable of either rupture are paralyzed diaphragma in the right side patient had mild hypoxia continued to have significant abdominal pain abdominal and chest CAT scan was requested before his admission and was not performed yet patient was admitted to the hospital be treated for pneumonia and congestive heart failure excessive patient will be on IV diuretics will watch his kidney function carefully also we'll consult pulmonary and possible need general surgeon for possible incarceration or rupture diaphragma to be determined after the CAT scan. If the meanwhile patient is more comfortable when he sat up in bed not able to lay down flat Review of Systems CONSTITUTIONAL: Will be to obesity with significant shortness of breath. EYES: No icterus sclerae, no conjunctivitis. EARS, NOSE, MOUTH, THROAT, and FACE: No sore throat, lymphadenopathy, carotid b ruits or deformity. RESPIRATORY: Positive shortness of breath cough wheezes. CARDIOVASCULAR: Positive PND orthopnea palpitation significant edema GASTROINTESTINAL: Positive abdominal pain with nausea no vomiting significant diarrhea with distended abdomen and worsening heartburn GENITOURINARY: Large hydrocele and swelling genitalia with decrease urine output. INTEGUMENT/BREAST: Significant arthritis with worsening anasarca and edema of the lower extremity. HEMATOLOGIC/LYMPHATIC: Negative for bleed or purpura. MUSCULOSKELTAL: Negative for Myalgia or arthralgia. NEURLOGICAL: No LOC, Sz or syncope, blurred vision dizziness or abnormality.. BEHAVIORAL/PSYCH: Negative. ENDOCRINE: Negative. Past Medical History Past Medical History: Atrial Fibrillation, Heart Failure, Diabetes Mellitus, Hyperlipidemia, Hypertension, Osteoarthritis (OA) Additional Past Medical History / Comment(s): edema jeffrey lower legs that comes and goes,hx kidney stones, hx migraines, Pneumonia 2018, cleft palate - repair History of Any Multi-Drug Resistant Organisms: None Reported Past Surgical History: Heart Catheterization With Stent, Orthopedic Surgery, Tonsillectomy Additional Past Surgical History / Comment(s): left shoulder surgery, surgery jeffrey knees, rt hand surgery for fx fingers from work injury, left hand surgery fx finger from sports injury, jeffrey cataracts, Past Anesthesia/Blood Transfusion Reactions: No Reported Reaction Date of Last Stent Placement:: 2018 Past Psychological History: Anxiety, Panic Disorder Additional Psychological History / Comment(s): panic attacks Smoking Status: Never smoker Past Alcohol Use History: None Reported Past Drug Use History: None Reported - Past Family History Father Family Medical History: No Reported History Additional Family Medical History / Comment(s): Father was a heavy smoker. He of a [place] at the age of 42yrs. Mother Family Medical History: Cancer Additional Family Medical History / Comment(s): . Medications and Allergies Home Medications Medication Instructions Recorded Confirmed Type Atorvastatin [Lipitor] 10 mg PO HS 05/05/16 09/12/20 History Finasteride [Proscar] 5 mg PO DAILY 05/05/16 09/12/20 History DULoxetine HCL [Cymbalta] 30 mg PO DAILY 06/03/18 09/12/20 History Isosorbide Mononitrate ER [Imdur] 30 mg PO BID 06/03/18 09/12/20 History Furosemide [Lasix] 40 mg PO DAILY@0800,1200 12/08/18 09/12/20 History Insuln Asp Prt/Insulin Aspart 50 unit SQ BID 12/08/18 09/12/20 History [NovoLOG MIX 70-30 VIAL] Sertraline HCl [Zoloft] 200 mg PO HS 12/08/18 09/12/20 History amLODIPine [Norvasc] 10 mg PO DAILY 12/08/18 09/12/20 History Insulin Degludec [Tresiba 40 units SQ HS 01/13/19 09/12/20 History Flextouch U-100] hydrALAZINE HCL [Apresoline] 50 mg PO TID #180 tab 01/19/19 09/12/20 Rx Apixaban [Eliquis] 5 mg PO BID 01/21/19 09/12/20 History Brinzolamide/Brimonidine Tart 1 drop RIGHT EYE TID 01/21/19 09/12/20 History [Simbrinza 1%-0.2% Eye Drops] ALPRAZolam [Xanax] 0.25 mg PO Q8H PRN 09/12/20 09/12/20 History Albuterol Sulfate [Proair Hfa] 1 - 2 puff INHALATION RT-QID PRN 09/12/20 0 History Aspirin EC [Ecotrin Low Dose] 81 mg PO DAILY 09/12/20 09/12/20 History Carvedilol [Coreg] 6.25 mg PO BID 09/12/20 09/12/20 History Docusate [Colace] 100 mg PO BID 09/12/20 09/12/20 History Ferrous Sulfate [Feosol] 325 mg PO DAILY 09/12/20 09/12/20 History Losartan [Cozaar] 50 mg PO BID 09/12/20 09/12/20 History Potassium Chloride ER [K-Dur 10] 10 meq PO DAILY 09/12/20 09/12/20 History traZODone HCL 50 mg PO HS 09/12/20 09/12/20 History Allergies Allergy/AdvReac Type Severity Reaction Status Date / Time No Known Allergies Allergy Verified 09/12/20 17:20 Physical Exam Vitals: Vital Signs Temp Pulse Pulse Resp BP BP Pulse Ox 09/12/20 19:30 97.3 F L 82 22 178/75 94 L 09/12/20 18:00 98.0 F 72 20 152/86 98 09/12/20 17:00 98.0 F 78 20 158/84 98 09/12/20 16:47 63 18 09/12/20 16:37 66 18 09/12/20 16:00 64 20 150/82 98 09/12/20 14:51 98.1 F 65 18 162/88 95 Intake and Output 09/12/20 09/12/20 09/12/20 06:59 14:59 22:59 Other: Weight 158.757 kg 158.757 kg General Appearance: Alert, cooperative, morbid obesity with significant shortness of breath mild respiratory distress. Neck HEENT: Supple, no lymphadenopathy, no thyroid enlargement, no carotid bru its. Lungs: Decreased breath sound mostly in the right side with significant crackles in the bases positive mild inspiratory expiratory wheezes Chest Wall: Decrease expansion with deep inspiration especially in the right side no tenderness and no deformity was found on exam, no costochondral pain or discomfort. Heart: Irregular rate and rhythm, S1, S2 positive S3 positive systolic murmur with JVD. Back: Symmetric, no curvature, ROM normal, no CVA tenderness. Abdomen: Significantly distended with worsening anasarca and thick lymphedema of the abdominal wall from the umbilical site all the way to the genitalia with significant large ventral hernia including both side around the umbilical area above and below as well. Also patient had significant tenderness closer to the left lower quadrant along with mid lower abdominal area as well. Extremities: Significant discoloration worsening from the knee down with 2+ edema decreased pulse bilaterally. Significant arthritis of both knees. Skin: Skin color, texture, tugor normal, no rashes or lesions. Neurologic: Alert oriented x3 cranial nerves II through XII intact, no motor deficit, no abnormal balance or gait. Results CBC & Chem 7: 09/12/20 15:09/12/20 15:01 Labs: Abnormal Lab Results - Last 24 Hours (Table) 09/12/20 09/12/20 09/12/20 Range/Units 15: 15: 20:56 RDW 15.9 H (11.5-15.5) % Lymphocytes # 0.9 L (1.0-4.8) k/uL Carbon Dioxide 33 H (22-30) mmol/L Glucose 217 H (74-99) mg/dL POC Glucose (mg/dL) 292 H (75-99) mg/dL Calcium 8.3 L (8.4-10.2) mg/dL Thrombosis Risk Factor Assmnt - DVT/VTE Prophylaxis DVT/VTE Prophylaxis: Pharmacologic Prophylaxis ordered, Mechanical Prophylaxis ordered - Choose All That Apply Any of the Below Risk Factors Present?: Yes Each Factor Represents 1 point: Obesity (BMI >25) Each Risk Factor Represents 3 Points: Age 75 years or older Thrombosis Risk Factor Assessment Total Risk Factor Score: 4 Thrombosis Risk Factor Assessment Level: Moderate Risk Assessment and Plan Assessment: 1 severe dyspnea and shortness of breath: Combination of diastolic congestive heart failure, A. fib with RVR, COPD, possible pleural effusion with bilateral worsening right sided pneumonitis. 2 severe anasarca: Patient will be on furosemide 40 mg IV every 8 hours with switch to oral in the next 48 hours I need more alkylamine and if needed add Aldactone. 3 CHF exacerbation mostly diastolic dysfunction acute with chronic continue IV diuretics consult cardiology patient will be going for echocardiogram as well. 4 bilateral worsening right-sided pneumonitis: Patient will be on Rocephin and azithromycin also continue updraft treatment. 5 severe abdominal pain with questionable of incarceration most likely for internal hernia patient be going for CT of the abdomen and the chest try to exclude any possibility for rupture of the diaphragmatic and herniation going through the abdominal all the way through the diaphragmatic to the chest area. 6 type 2 diabetes: Continue patient on Levemir along with Novolin 70/30 continue Accu-Chek with sliding scales coverage will hold metformin for now. 7 recurrent cellulitis of lower extremity: Patient is doing slightly but better with no antibiotic for the Celexa this point. 8 A. fib with RVR: Patient pulse rate is under control remain on Coreg still on Eliquis 5 mg twice a day continue medication. 9 hyperlipidemia: Patient is on Lipitor 10 mg daily. 10 CAD post PCI and stent placement has been seeing cardiology regular basis. 11 chronic depression remain on Xanax along with duloxetine the trazodone and Zoloft. 12 BPH: Remain on finasteride with no urinary retention at this point. 13 moderate size hydrocele: No need for Fierro catheter at this point hopefully with treatment of anasarca might help to reduce the swelling. 14 GI prophylaxis: Patient be on pantoprazole 40 mg twice a day. 15 DVT prophylaxis: Remain on Eliquis currently. CODE STATUS: Full code. Admit patient to the inpatient service for more than 2 night stay.
[2020-09-12] MEDS: INSULN ASP PRT/INSULIN ASPART 100 UNIT/ML 10 ML VIAL SQ SCH (21:34)
[2020-09-12] MEDS: PANTOPRAZOLE 40 MG/10 ML VIAL IVP SCH (21:35)
[2020-09-12] MEDS: INSULIN DETEMIR (LEVEMIR) 100 UNIT/ML SYR SQ SCH (21:35)
[2020-09-12] MEDS: LOSARTAN 50 MG TAB PO SCH (21:36)
[2020-09-12] MEDS: ATORVASTATIN 10 MG TAB PO SCH (21:36)
[2020-09-12] MEDS: carvediloL 6.25 MG TAB PO SCH (21:36)
[2020-09-12] MEDS: hydrALAZINE HCL 50 MG TAB PO SCH (21:36)
[2020-09-12] MEDS: traZODone HCL 50 MG TAB PO SCH (21:36)
[2020-09-12] MEDS: DOCUSATE 100 MG CAP PO SCH (21:36)
[2020-09-12] MEDS: SERTRALINE 100 MG TAB PO SCH (21:36)
[2020-09-12] MEDS: ISOSORBIDE MONONITRATE ER 30 MG TAB.ER.24H PO SCH (21:36)
[2020-09-12] MEDS: APIXABAN 5 MG TAB PO SCH (21:36)
[2020-09-12] MEDS: DORZOLAMIDE HCL 2% DROPS 10 ML BTL RIGHT EYE SCH (22:41)
[2020-09-12] MEDS: BRIMONIDINE TARTRATE 0.2% DROPS 5 ML BTL RIGHT EYE SCH (22:41)
[2020-09-13] MEDS: FUROSEMIDE 10 MG/ML 4 ML VIAL IV SCH ×4 (00:04→23:22)
[2020-09-13 06:44] LABS: Glucose,Whole Blood 282 mg/dL (75-99)
[2020-09-13] MEDS: INSULN ASP PRT/INSULIN ASPART 100 UNIT/ML 10 ML VIAL SQ SCH ×2 (08:32→20:56)
[2020-09-13] MEDS: ISOSORBIDE MONONITRATE ER 30 MG TAB.ER.24H PO SCH ×2 (08:34→20:55)
[2020-09-13] MEDS: DOCUSATE 100 MG CAP PO SCH ×3 (08:34→20:55)
[2020-09-13] MEDS: LOSARTAN 50 MG TAB PO SCH ×2 (08:34→20:56)
[2020-09-13] MEDS: APIXABAN 5 MG TAB PO SCH (08:34)
[2020-09-13] MEDS: carvediloL 6.25 MG TAB PO SCH ×2 (08:34→21:14)
[2020-09-13] MEDS: ASPIRIN 81 MG PO SCH (08:34)
[2020-09-13] MEDS: FERROUS SULFATE 325 MG TAB PO SCH (08:34)
[2020-09-13] MEDS: amLODIPine 10 MG TAB PO SCH (08:38)
[2020-09-13] MEDS: DULoxetine HCL 30 MG CAPSULE.DR PO SCH (08:38)
[2020-09-13] MEDS: hydrALAZINE HCL 50 MG TAB PO SCH ×3 (08:38→20:55)
[2020-09-13] MEDS: FINASTERIDE 5 MG TAB PO SCH (08:39)
[2020-09-13] MEDS: POTASSIUM CHLORIDE ER 10 MEQ TAB.ER.PRT PO SCH (08:40)
[2020-09-13] MEDS: PANTOPRAZOLE 40 MG/10 ML VIAL IVP SCH (08:40)
[2020-09-13] MEDS: DORZOLAMIDE HCL 2% DROPS 10 ML BTL RIGHT EYE SCH ×3 (09:10→20:59)
[2020-09-13] MEDS: BRIMONIDINE TARTRATE 0.2% DROPS 5 ML BTL RIGHT EYE SCH ×3 (09:10→20:58)
--- NOTE | 2020-09-13 09:17 | ECHOF ---
Referral Reason:chf MEASUREMENTS -------- HEIGHT: 180.3 cm WEIGHT: 158.8 kg BP: 178/67 RVIDd: 4.5 cm (< 3.3) IVSd: 1.8 cm (0.6 - 1.1) LVIDd: 2.7 cm (3.9 - 5.3) LVPWd: 1.8 cm (0.6 - 1.1) IVSs: 2.1 cm LVIDs: 1.4 cm LVPWs: 2.0 cm LAESV Index (A-L): 47.48 ml/m Ao Diam: 2.8 cm (2.0 - 3.7) AV Cusp: 2.0 cm (1.5 - 2.6) MV EXCURSION: 15.249 mm (> 18.000) MV EF SLOPE: 137 mm/s (70 - 150) EPSS: 0.4 cm MV E Santiago: 1.26 m/s MV DecT: 150 ms MV A Santiago: 1.21 m/s MV E/A Ratio: 1.04 RAP: 5.00 mmHg RVSP: 25.15 mmHg FINDINGS -------- Atrial fibrillation. This was a technically difficult study with suboptimal views. The left ventricular size is normal. There is severe concentric left ventricular hypertrophy. Ove rall left ventricular systolic function is normal with, an EF between 55 - 60 %. The right ventricle is severely enlarged. LA is severely dilated >40 ml/m2 The right atrium was not well visualized. xx ml of Lumason was utilized for enhancement of images. Interatrial and interventricular septum intact. The aortic valve is trileaflet, and appears structurally normal. No aortic stenosis or regurgitation. Severe mitral annular calcification present. Mild mitral regurgitation is present. Mild tricuspid regurgitation present. There is no evidence of pulmonary hypertension. The right v entricular systolic pressure, as measured by Doppler, is 25.15mmHg. The pulmonic valve was not well visualized. There is no pulmonic regurgitation present. The aortic root size is normal. IVC Not well visulized. There is no pericardial effusion. CONCLUSIONS -------- 1. This was a technically difficult study with suboptimal views. 2. There is severe concentric left ventricular hypertrophy. 3. Overall left ventricular systolic function is normal with, an EF between 55 - 60 %. 4. The right ventricle is severely enlarged. 5. LA is severely dilated >40 ml/m2 6. The aortic valve is trileaflet, and appears structurally normal. No aortic stenosis or regurgitati on. 7. Severe mitral annular calcification present. 8. Mild mitral regurgitation is present. 9. Mild tricuspid regurgitation present. 10. There is no pericardial effusion. SUPPLY OFFICER: Lexus Clay RDCS
--- NOTE | 2020-09-13 09:21 | P.CRDCN ---
History of Present Illness Consult date: 09/13/20 Consult reason: congestive heart failure Chief complaint: Shortness of breath History of present illness: This is a pleasant 80-year-old gentleman who follows regularly with Dr. Chamberlain in the office. He has a known history of coronary artery disease with stenting of the RCA and LAD in December 2018, history of hypertension, diabetes, hyperlipidemia, obesity, paroxysmal atrial fibrillation, diastolic congestive heart failure, COPD. He presents to the hospital on this occasion with symptoms of shortness of breath. Patient states that symptoms have been going on for over a week, but the past week much more severe. Positive PND and orthopnea. Patient also states that he has an increase in weight. Patient's most recent echocardiogram with Doppler study performed in the office was done in October 2019, normal ejection fraction, mild MR, [id number] TR and moderate LVH. Chest x-ray report on presentation here shows right sided diaphragmatic elevation which appears to be chronic in nature. Underlying increased density may reflect developing infiltrate or atelectasis. Chest x-ray film suggests possible pleural effusion. EKG shows atrial fibrillation with controlled ventricular response. Blood pressure 178/60 with a heart rate in the 80s, respirations 20. White blood cell count 7.6, hemoglobin 14.7, platelet count 163. Sodium 141, potassium 3.6, BUN 19, creatinine 0.8. Troponin 0.012. BNP level 505. Patient's home medications include albuterol, trazodone, Cozaar 50 twice a day, Ecotrin 81 mg daily, Feosol, Coreg 6.25 mg twice a day, Colace, potassium 10 mEq daily, Xanax, Zoloft, Imdur 30 mg twice a day, insulin, hydralazine 50 3 times a day, Lasix 40 3 times a day, pro-scar, Cymbalta, Norvasc 10 daily, eyedrops, Lipitor 10 mg at at bedtime, Eliquis 5 twice a day. Patient was initiated here on IV Lasix. He states he has not been putting out much urine since initiation of the Lasix. There is no weight this morning, no documentation of intake and output. At the time of my examination this morning, patient is sitting up in his chair at bedside, he states that he is unable to lie down in the bed because he is unable to breathe. Past Medical History Past Medical History: Atrial Fibrillation, Heart Failure, Diabetes Mellitus, Hyperlipidemia, Hypertension, Osteoarthritis (OA) Additional Past Medical History / Comment(s): edema jeffrey lower legs that comes and goes,hx kidney stones, hx migraines, Pneumonia 2018, cleft palate - repair History of Any Multi-Drug Resistant Organisms: None Reported Past Surgical History: Heart Catheterization With Stent, Orthopedic Surgery, Tonsillectomy Additional Past Surgical History / Comment(s): left shoulder surgery, surgery jeffrey knees, rt hand surgery for fx fingers from work injury, left hand surgery fx finger from sports injury, jeffrey cataracts, Past Anesthesia/Blood Transfusion Reactions: No Reported Reaction Date of Last Stent Placement:: 2018 Past Psychological History: Anxiety, Panic Disorder Additional Psychological History / Comment(s): panic attacks Smoking Status: Never smoker Past Alcohol Use History: None Reported Past Drug Use History: None Reported - Past Family History Father Family Medical History: No Reported History Additional Family Medical History / Comment(s): Father was a heavy smoker. He of a AK at the age of 42yrs. Mother Family Medical History: Cancer Additional Family Medical History / Comment(s): . Medications and Allergies Home Medications Medication Instructions Recorded Confirmed Type Atorvastatin [Lipitor] 10 mg PO HS 05/05/16 09/12/20 History Finasteride [Proscar] 5 mg PO DAILY 05/05/16 09/12/20 History DULoxetine HCL [Cymbalta] 30 mg PO DAILY 06/03/18 09/12/20 History Isosorbide Mononitrate ER [Imdur] 30 mg PO BID 06/03/18 09/12/20 History Furosemide [Lasix] 40 mg PO DAILY@0800,1200 12/08/18 09/12/20 History Insuln Asp Prt/Insulin Aspart 50 unit SQ BID 12/08/18 09/12/20 History [NovoLOG MIX 70-30 VIAL] Sertraline HCl [Zoloft] 200 mg PO HS 12/08/18 09/12/20 History amLODIPine [Norvasc] 10 mg PO DAILY 12/08/18 09/12/20 History Insulin Degludec [Tresiba 40 units SQ HS 01/13/19 09/12/20 History Flextouch U-100] hydrALAZINE HCL [Apresoline] 50 mg PO TID #180 tab 01/19/19 09/12/20 Rx Apixaban [Eliquis] 5 mg PO BID 01/21/19 09/12/20 History Brinzolamide/Brimonidine Tart 1 drop RIGHT EYE TID 01/21/19 09/12/20 History [Simbrinza 1%-0.2% Eye Drops] ALPRAZolam [Xanax] 0.25 mg PO Q8H PRN 09/12/20 09/12/20 History Albuterol Sulfate [Proair Hfa] 1 - 2 puff INHALATION RT-QID PRN 09/12/20 09/12/20 History Aspirin EC [Ecotrin Low Dose] 81 mg PO DAILY 09/12/20 09/12/20 History Carvedilol [Coreg] 6.25 mg PO BID 09/12/20 09/12/20 History Docusate [Colace] 100 mg PO BID 09/12/20 09/12/20 History Ferrous Sulfate [Feosol] 325 mg PO DAILY 09/12/20 09/12/20 History Losartan [Cozaar] 50 mg PO BID 09/12/20 09/12/20 History Potassium Chloride ER [K-Dur 10] 10 meq PO DAILY 09/12/20 09/12/20 History traZODone HCL 50 mg PO HS 09/12/20 09/12/20 History Allergies Allergy/AdvReac Type Severity Reaction Status Date / Time No Known Allergies Allergy Verified 09/12/20 17:20 Physical Exam Vitals: Vital Signs Temp Pulse Pulse Resp BP BP Pulse Ox 09/13/20 08:04 98.3 F 89 24 197/91 96 09/13/20 04:40 97.4 F L 84 20 178/67 94 L 09/12/20 19:30 97.3 F L 82 22 178/75 94 L 09/12/20 18:00 98.0 F 72 20 152/86 98 09/12/20 17:00 98.0 F 78 20 158/84 98 09/12/20 16:47 63 18 09/12/20 16:37 66 18 09/12/20 16:00 64 20 150/82 98 09/12/20 14:51 98.1 F 65 18 162/88 95 Intake and Output 09/12/20 09/13/20 09/13/20 22:59 06:59 14:59 Other: Voiding Method Toilet Toilet # Voids 1 1 Weight 158.757 kg PHYSICAL EXAMINATION: GENERAL: 80-year-old gentleman, morbidly obese, short of breath at the time of my examination HEENT: Head is atraumatic, normocephalic. Pupils equal, round. Sclera anic teric. Conjunctiva are clear. Mucous membranes of the mouth are moist. Neck is supple. There is elevated jugular venous pressure. No carotid bruit is heard. HEART EXAMINATION: S1 S2 irregularly irregular systolic murmur is heard CHEST EXAMINATION: Lungs reveal diminished air entry bilaterally, right greater than the left ABDOMEN: Distended, firm. Evidence of large ventral hernia around the umbilicus area . EXTREMITIES: 1+ peripheral pulses with evidence of 2+ bilateral edema, signi ficant redness discoloration from the knee down. NEUROLOGIC patient is awake, alert and oriented 3 . . Results 09/12/20 15:01 09/12/20 15:01 Cardiac Enzymes 09/12/20 09/12/20 Range/Units 15:01 15: AST 23 (17-59) U/L Troponin I <0.012 (0.000-0.034) ng/mL Coagulation 09/12/20 Range/Units 15:01 PT 10.4 (9.0-12.0) sec APTT 25.9 (22.0-30.0) sec CBC 09/12/20 Range/Units 15:01 WBC 7.6 (3.8-10.6) k/uL RBC 5.02 (4.30-5.90) m/uL Hgb 14.7 (13.0-17.5) gm/dL Hct 45.9 (39.0-53.0) % Plt Count 163 (150-450) k/uL Comprehensive Metabolic Panel 09/12/20 Range/Units 15:01 Sodium 141 (137-145) mmol/L Potassium 3.6 (3.5-5.1) mmol/L Chloride 103 (98-107) mmol/L Carbon Dioxide 33 H (22-30) mmol/L BUN 19 (9-20) mg/dL Creatinine 0.81 (0.66-1.25) mg/dL Glucose 217 H (74-99) mg/dL Calcium 8.3 L (8.4-10.2) mg/dL AST 23 (17-59) U/L ALT 18 (4-49) U/L Alkaline Phosphatase 110 (38-126) U/L Total Protein 6.6 (6.3-8.2) g/dL Albumin 3.7 (3.5-5.0) g/dL Current Medications Generic Name Dose Route Start Last Admin Trade Name Freq PRN Reason Stop Dose Admin Hydrocodone Bitart/Acetaminophen 1 each 09/12/20 16:44 Hydrocodone/Apap 5-325mg 1 Each Tab PO Q4HR PRN Moderate Pain Albuterol Sulfate 2.5 mg 09/12/20 20:50 Albuterol Nebulized 2.5 Mg/3 Ml INHALATION RT-QID PRN Shortness Of Breath Alprazolam 0.25 mg 09/12/20 20:50 Alprazolam 0.25 Mg Tab PO Q8H PRN Anxiety Amlodipine Besylate 10 mg 09/13/20 09:00 09/13/20 08:38 Amlodipine 10 Mg Tab PO 10 mg DAILY [place] Administration Apixaban 5 mg 09/12/20 21:00 09/13/20 08:34 Apixaban 5 Mg Tab PO 5 mg BID [place] Administration Aspirin 81 mg 09/13/20 09:00 09/13/20 08:34 Aspirin 81 Mg PO 81 mg DAILY [place] Administration Atorvastatin Calcium 10 mg 09/12/20 21:00 09/12/20 21:36 Atorvastatin 10 Mg Tab PO 10 mg HS [place] Administration Brimonidine Tartrate 1 drops 09/12/20 22:00 09/13/20 09:10 Brimonidine Tartrate 0.2% Drops 5 Ml Btl RIGHT EYE 1 drops TID [place] Administration Carvedilol 6.25 mg 09/12/20 21:00 09/13/20 08:34 Carvedilol 6.25 Mg Tab PO 6.25 mg BID [place] Administration Docusate Sodium 100 mg 09/12/20 21:00 09/13/20 08:34 Docusate 100 Mg Cap PO Not Given BID [place] Dorzolamide HCl 1 drops 09/12/20 22:00 09/13/20 09:10 Dorzolamide Hcl 2% Drops 10 Ml Btl RIGHT EYE 1 drops TID [place] Administration Duloxetine HCl 30 mg 09/13/20 09:00 09/13/20 08:38 Duloxetine Hcl 30 Mg Capsule.Dr PO 30 mg DAILY [place] Administration Ferrous Sulfate 325 mg 09/13/20 09:00 09/13/20 08:34 Ferrous Sulfate 325 Mg Tab PO Not Given DAILY [place] Finasteride 5 mg 09/13/20 09:00 09/13/20 08:39 Finasteride 5 Mg Tab PO 5 mg DAILY [place] Administration Furosemide 40 mg 09/13/20 00:00 09/13/20 08:40 Furosemide 10 Mg/Ml 4 Ml Vial IV 40 mg Q8HR [place] Administration Hydralazine HCl 50 mg 09/12/20 22:00 09/13/20 08:38 Hydralazine Hcl 50 Mg Tab PO 50 mg TID [place] Administration Insulin Aspart 50 unit 09/12/20 21:00 09/13/20 08:32 Insuln Asp Prt/Insulin Aspart 100 Unit/Ml 10 Ml Vial SQ 50 unit BID [place] Administration Insulin Detemir 40 unit 09/12/20 21:00 09/12/20 21:35 Insulin Detemir (Levemir) 100 Unit/Ml Syr SQ 40 unit HS [place] Administration Iopamidol 30 ml 09/12/20 20:54 Iopamidol Contrast (Oral Use) Vial PO 09/13/20 20:[address] Scan Isosorbide Mononitrate 30 mg 09/12/20 21:00 09/13/20 08:34 Isosorbide Mononitrate Er 30 Mg Tab.Er.24h PO 30 mg BID [place] Administration Lorazepam 1 mg 09/12/20 18:41 Lorazepam 2 Mg/Ml Inj IV Q6HR PRN Anxiety Losartan Potassium 50 mg 09/12/20 21:00 09/13/20 08:34 Losartan 50 Mg Tab PO 50 mg BID YK Administration Naloxone HCl 0.2 mg 09/12/20 16:44 Naloxone 0.4 Mg/Ml 1 Ml Vial IV Q2M PRN Opioid Reversal Pantoprazole Sodium 40 mg 09/12/20 21:00 09/13/20 08:40 Pantoprazole 40 Mg/10 Ml Vial IVP 40 mg BID [place] Administration Potassium Chloride 10 meq 09/13/20 09:00 09/13/20 08:40 Potassium Chloride Er 10 Meq Tab.Er.Prt PO 10 meq DAILY [place] Administration Sertraline HCl 200 mg 09/12/20 21:00 09/12/20 21:36 Sertraline 100 Mg Tab PO 200 mg HS [place] Administration Trazodone HCl 50 mg 09/12/20 21:00 09/12/20 21:36 Trazodone Hcl 50 Mg Tab PO 50 mg HS [place] Administration Intake and Output 09/12/20 09/13/20 09/13/20 22:59 06:59 14:59 Other: Voiding Method Toilet Toilet # Voids 1 1 Weight 158.757 kg 09/12/20 15:01 09/12/20 15:01 EKG Interpretations (text) EKG shows atrial fibrillation with a controlled ventricular response Assessment and Plan Plan: Assessment and plan #1 shortness of breath, worsening over the past one week, likely secondary to diastolic congestive heart failure acute on chronic, possible pleural effusion and pneumonia #2 diabetes #3 hyperlipidemia #4 hypertension #5 paroxysmal atrial fibrillation #6 coronary artery disease with prior LAD and RCA stenting in 2019 #7 COPD #8 morbid obesity Plan We will obtain a repeat echocardiogram with Doppler study. Continue current dose of IV Lasix. Continue to monitor the patient's intake and output along with daily weights and daily lytes BUN and creatinine. Patient has also been ordered to have an ultrasound of the chest as well as CT of the abdomen and chest performed today. We will continue a baby aspirin, Lipitor, Coreg, hydralazine, Imdur, and losartan. Further recommendations to follow. DNP note has been reviewed, I agree with a documented findings and plan of care. Patient was seen and examined.
--- NOTE | 2020-09-13 10:43 | P.PN ---
Subjective Progress Note Date: 09/13/20 HISTORY OF PRESENT ILLNESS 80-year-old male one of my office patient with severe morbid obesity with BMI of 48.8 who had long-standing history of COPD, CHF, insulin resistant type 2 diabetes, anasarca and chronic edema, CAD post PCI and stent placement in the past, kidney stone, recurrent pneumonia and severe neuropathy with recurrent vascular Celexa the lower extremity who was seen in the office last few weeks for recurrent cellulitis with worsening symptom which has improved last 2 weeks but he presented today with over 20 pounds weight gain with anasarca and swelling all over especially in lower extremity and abdominal region area with some thick edema of the abdominal wall. Patient was not able to ambulate and walk was in severe dyspnea and mild respiratory failure ended up coming to the emergency department with help where was seen and evaluated his chest x-ray s howed large pleural effusion with questionable of either rupture are paralyzed diaphragma in the right side patient had mild hypoxia continued to have significant abdominal pain abdominal and chest CAT scan was requested before his admission and was not performed yet patient was admitted to the hospital be treated for pneumonia and congestive heart failure excessive patient will be on IV diuretics will watch his kidney function carefully also we'll consult pulmonary and possible need general surgeon for possible incarceration or rupture diaphragma to be determined after the CAT scan. If the meanwhile patient is more comfortable when he sat up in bed not able to lay down flat. 09/13: Patient continues to be unable to lay flat. He is unable to undergo CAT scan. Dr. Burch has ordered ultrasound of the chest which has been completed and report is pending. Patient did receive eliquis this morning which will now be put on hold. Echocardiogram reveals EF of 55-60% with severe concentric left ventricle hypertrophy, LA severely dilated. No aortic stenosis or regurgitation. Severe mitral calcification. Mild mitral regurgitation, mild tricuspid regurgitation. Pericardial effusion. Patient has been seen by cardiology with recommendations to continue current management. Blood sugars running between 217-292. CAT scan of the abdomen and chest have been ordered but will be postponed due to orthopnea. REVIEW OF SYSTEMS CONSTITUTIONAL: Will be to obesity with significant shortness of breath. No fever. EYES: No icterus sclerae, no conjunctivitis. EARS, NOSE, MOUTH, THROAT, and FACE: No sore throat, lymphadenopathy, carotid bruits or deformity. RESPIRATORY: Positive shortness of breath cough wheezes. CARDIOVASCULAR: Positive PND continued orthopnea palpitation significant edema GASTROINTESTINAL: Positive abdominal pain with nausea no vomiting significant diarrhea with distended abdomen and worsening heartburn GENITOURINARY: Large hydrocele and swelling genitalia with decrease urine output. INTEGUMENT/BREAST: Significant arthritis with worsening anasarca and edema of the lower extremity. HEMATOLOGIC/LYMPHATIC: Negative for bleed or purpura. MUSCULOSKELTAL: Negative for Myalgia or arthralgia. NEURLOGICAL: No LOC, Sz or syncope, blurred vision dizziness or abnormality.. BEHAVIORAL/PSYCH: Negative. ENDOCRINE: Elevated blood sugars. PHYSICAL EXAMINATION General Appearance: Alert, cooperative, morbid obesity with significant shortness of breath mild respiratory distress. Patient is sitting on the edge of the bed. 80-year-old male. Neck HEENT: Supple, no lymphadenopathy, no thyroid enlargement, no carotid bruits. Lungs: Decreased breath sound mostly in the right side with significant crackles in the bases positive mild inspiratory expiratory wheezes Chest Wall: Decrease expansion with deep inspiration especially in the right side no tenderness and no deformity was found on exam, no costochondral pain or discomfort. Heart: Irregular rate and rhythm, S1, S2 positive S3 positive systolic murmur with JVD. Back: Symmetric, no curvature, ROM normal, no CVA tenderness. Abdomen: Significantly distended with worsening anasarca and thick lymphedema of the abdominal wall from the umbilical site all the way to the genitalia with significant large ventral hernia including both side around the umbilical area above and below as well. Also patient had significant tenderness closer to the left lower quadrant along with mid lower abdominal area as well. Extremities: Significant discoloration worsening from the knee down with 2+ edema decreased pulse bilaterally. Significant arthritis of both knees. Skin: Skin color, texture, tugor normal, no rashes or lesions. Neurologic: Alert oriented x3 cranial nerves II through XII intact, no motor deficit, no abnormal balance or gait. ASSESSMENT AND PLAN 1 severe dyspnea and shortness of breath: Combination of diastolic congestive heart failure, A. fib with RVR, COPD, possible pleural effusion with bilateral worsening right sided pneumonitis. 2 severe anasarca. Continue furosemide 40 mg IV every 8 hours. 3 acute on chronic diastolic heart failure with possible pleural effusion. Continue IV diuretics, cardiology consult appreciated, echocardiogram as above. 4 bilateral worsening right-sided infiltrating. Patient received IV antibiotics in the emergency center. Pulmonary medicine evaluation. Ultrasound of the chest. 5 severe abdominal pain with questionable of incarceration most likely for internal hernia patient be going for CT of the abdomen and the chest try to exclude any possibility for rupture of the diaphragmatic and herniation going through the abdominal all the way through the diaphragmatic to the chest area. 6 type 2 diabetes uncontrolled with hyperglycemia secondary to illness and steroids: Continue patient on Levemir along with Novolin 70/30 continue Accu- Chek with sliding scales coverage will hold metformin for now. 7 recurrent cellulitis of lower extremity: Patient is doing slightly but better with no antibiotic for the Celexa this point. 8 paroxysmal atrial fibrillation. Continue Coreg and hold eliquis until evaluated by Dr. Burch. 9 hyperlipidemia: Patient is on Lipitor 10 mg daily. 10 hypertension. Continue Coreg 6.5 mg twice daily, hydralazine 50 mg 3 times daily, amlodipine 10 mg daily, losartan 50 mg twice daily. 11 CAD post PCI and stent placement. Continue Imdur 30 mg twice daily. Cardiology consult. 12 recurrent depression remain on Xanax along with duloxetine the trazodone and Zoloft. 13 BPH: Remain on finasteride with no urinary retention at this point. 14 moderate size hydrocele: No need for Fierro catheter at this point hopefully with treatment of anasarca might help to reduce the swelling. 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 Consult with Dr. Small. 16 GI prophylaxis: Patient be on pantoprazole 40 mg twice a day. 17 DVT prophylaxis: Hold eliquis. CODE STATUS: Full code. Discharge plan: To be determined. PT and OT will be added tomorrow. Impression and plan of care have been directed as dictated by the signing physician. Farheen Knapp nurse practitioner acting as scribe for signing physician. Objective - Vital Signs Vital signs: Vital Signs Temp 98.3 F 09/13/20 08:04 Pulse 89 09/13/20 08:04 Resp 24 09/13/20 08:04 BP 197/91 09/13/20 08:04 Pulse Ox 96 09/13/20 08:04 Intake & Output 09/12/20 09/13/20 09/13/20 18:59 06:59 18:59 Weight 158.757 kg 158.757 kg Other: Voiding Method Toilet # Voids 1 - Labs CBC & Chem 7: 10/14/20 15:01 09/12/20 15:01 Labs: Abnormal Lab Results - Last 24 Hours (Table) 09/12/20 09/12/20 09/12/20 Range/Units 15:01 15:01 20:56 RDW 15.9 H (11.5-15.5) % Lymphocytes # 0.9 L (1.0-4.8) k/uL Carbon Dioxide 33 H (22-30) mmol/L Glucose 217 H (74-99) mg/dL POC Glucose (mg/dL) 292 H (75-99) mg/dL Calcium 8.3 L (8.4-10.2) mg/dL 09/13/20 Range/Units 06:42 RDW (11.5-15.5) % Lymphocytes # (1.0-4.8) k/uL Carbon Dioxide (22-30) mmol/L Glucose (74-99) mg/dL POC Glucose (mg/dL) 282 H (75-99) mg/dL Calcium (8.4-10.2) mg/dL
[2020-09-13 12:12] LABS: Glucose,Whole Blood 258 mg/dL (75-99)
[2020-09-13] MEDS: INSULIN ASPART (NovoLOG) 100 UNIT/ML VIAL SQ SCH ×3 (12:15→20:56)
--- NOTE | 2020-09-13 13:31 | P.GSCN ---
<Taryn Hendrickson - Last Filed: 09/13/20 13:12> History of Present Illness Consult date: 09/13/20 History of present illness: CHIEF COMPLAINT: Shortness of breath HISTORY OF PRESENT ILLNESS: This is a 80-year-old male with a known history of morbid obesity, COPD, CHF, diabetes mellitus type 2, coronary artery disease with previous stents. Patient presented to the hospital with complaints of s hortness of breath and a 20 pound weight gain. He is going currently being treated for CHF exacerbation with possible pleural effusion and pneumonia. 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 Patient does have a 2 cm ulceration underneath his right buttocks which was caused by a burn from a heating pad. Patient denies any abdominal pain. Denies any nausea or vomiting. He does report having bowel movements however his stool today was hard. He had an echo shows an EF of 55-60%. His last dose Eliquis was this morning and currently on hold. He has a computed tomography scan of the chest abdomen and pelvis and chest ultrasound that are ordered and have not been completed yet due to patient unable to lay flat because of his shortness of breath. PAST MEDICAL HISTORY: See list. PAST SURGICAL HISTORY: See list. MEDICATIONS: See list. ALLERGIES: See list. SOCIAL HISTORY: No illicit drug use. REVIEW OF SYSTEMS: CONSTITUTIONAL: Denies fever or chills. HEENT: Denies blurred vision, vision changes, or eye pain. Denies hemoptysis CARDIOVASCULAR: Denies chest pain or pressure. RESPIRATORY: No shortness of breath. GASTROINTESTINAL: See HPI for pertinent findings HEMATOLOGIC: Denies bleeding disorders. GENITOURINARY: Denies any blood in urine or increased urinary frequency. SKIN: Denies pruitis. Denies rash. PHYSICAL EXAM: VITAL SIGNS: Reviewed GENERAL: Well-developed in no acute distress. HEENT: No sclera icterus. Extraocular movements grossly intact. Moist buccal mucosa. Head is atraumatic, normocephalic. No nasal drainage. ABDOMEN: Soft. Obese. No tenderness with palpation of the abdomen. NEUROLOGIC: Alert and oriented. Cranial nerves II through XII grossly intact. SKIN: 2 cm circular Ulceration Stage II underneath the right buttocks. Serous drainage noted on the dressing LABORATORY DATA: WBC 7.6 hemoglobin 14.7 platelets 163 IMAGING: Chest x-ray may reflect a developing infiltrate or atelectasis ASSESSMENT: 1. Possible ventral hernia 2. small 2 cm ulceration underneath the right buttocks 3. Acute diastolic CHF exacerbation 4. Possible pleural effusion and right-sided pneumonitis 5. Morbid obesity PLAN: -Patient will be seen and examined by Dr. Small and further recommendations will be forthcoming -Awaiting computed tomography scan of the chest abdomen and pelvis to be completed Thank you for this consultation Physician Location Man note has been reviewed by physician. Signing provider agrees with the documented findings, assessment, and plan of care. Past Medical History Past Medical History: Atrial Fibrillation, Heart Failure, Diabetes Mellitus, Hyperlipidemia, Hypertension, Osteoarthritis (OA) Additional Past Medical History / Comment(s): edema jeffrey lower legs that comes and goes,hx kidney stones, hx migraines, Pneumonia 2018, cleft palate - repair History of Any Multi-Drug Resistant Organisms: None Reported Past Surgical History: Heart Catheterization With Stent, Orthopedic Surgery, Tonsillectomy Additional Past Surgical History / Comment(s): left shoulder surgery, surgery jeffrey knees, rt hand surgery for fx fingers from work injury, left hand surgery fx finger from sports injury, jeffrey cataracts, Past Anesthesia/Blood Transfusion Reactions: No Reported Reaction Date of Last Stent Placement:: 2018 Past Psychological History: Anxiety, Panic Disorder Additional Psychological History / Comment(s): panic attacks Smoking Status: Never smoker Past Alcohol Use History: None Reported Past Drug Use History: None Reported - Past Family History Father Family Medical History: No Reported History Additional Family Medical History / Comment(s): Father was a heavy smoker. He of a [place] at the age of 42yrs. Mother Family Medical History: Cancer Additional Family Medical History / Comment(s): . Medications and Allergies Home Medications Medication Instructions Recorded Confirmed Type Atorvastatin [Lipitor] 10 mg PO HS 05/05/16 09/12/20 History Finasteride [Proscar] 5 mg PO DAILY 05/05/16 09/12/20 History DULoxetine HCL [Cymbalta] 30 mg PO DAILY 06/03/18 09/12/20 History Isosorbide Mononitrate ER [Imdur] 30 mg PO BID 06/03/18 09/12/20 History Furosemide [Lasix] 40 mg PO DAILY@0800,1200 12/08/18 09/12/20 History Insuln Asp Prt/Insulin Aspart 50 unit SQ BID 12/08/18 09/12/20 History [NovoLOG MIX 70-30 VIAL] Sertraline HCl [Zoloft] 200 mg PO HS 12/08/18 09/12/20 History amLODIPine [Norvasc] 10 mg PO DAILY 12/08/18 09/12/20 History Insulin Degludec [Tresiba 40 units SQ HS 01/13/19 09/12/20 History Flextouch U-100] hydrALAZINE HCL [Apresoline] 50 mg PO TID #180 tab 01/19/19 09/12/20 Rx Apixaban [Eliquis] 5 mg PO BID 01/21/19 09/12/20 History Brinzolamide/Brimonidine Tart 1 drop RIGHT EYE TID 01/21/19 09/12/20 History [Simbrinza 1%-0.2% Eye Drops] ALPRAZolam [Xanax] 0.25 mg PO Q8H PRN 09/12/20 09/12/20 History Albuterol Sulfate [Proair Hfa] 1 - 2 puff INHALATION RT-QID PRN 09/12/20 09/12/20 History Aspirin EC [Ecotrin Low Dose] 81 mg PO DAILY 09/12/20 09/12/20 History Carvedilol [Coreg] 6.25 mg PO BID 09/12/20 09/12/20 History Docusate [Colace] 100 mg PO BID 09/12/20 09/12/20 History Ferrous Sulfate [Feosol] 325 mg PO DAILY 09/12/20 09/12/20 History Losartan [Cozaar] 50 mg PO BID 09/12/20 09/12/20 History Potassium Chloride ER [K-Dur 10] 10 meq PO DAILY 09/12/20 09/12/20 History traZODone HCL 50 mg PO HS 09/12/20 09/12/20 History Allergies Allergy/AdvReac Type Severity Reaction Status Date / Time No Known Allergies Allergy Verified 09/12/20 17:20 Surgical - Exam Vital Signs Temp Pulse Resp BP Pulse Ox 98.1 F 65 18 162/88 95 09/12/20 14:51 09/12/20 14:51 09/12/20 14:51 09/12/20 14:51 09/12/20 14:51 Results - Labs 09/12/20 15:01 09/12/20 15:01 Abnormal Lab Results - Last 24 Hours (Table) 09/12/20 09/12/20 09/12/20 Range/Units 15:01 15:01 20:56 RDW 15.9 H (11.5-15.5) % Lymphocytes # 0.9 L (1.0-4.8) k/uL Carbon Dioxide 33 H (22-30) mmol/L Glucose 217 H (74-99) mg/dL POC Glucose (mg/dL) 292 H (75-99) mg/dL Calcium 8.3 L (8.4-10.2) mg/dL 09/13/20 09/13/20 Range/Units 06:42 12:10 RDW (11.5-15.5) % Lymphocytes # (1.0-4.8) k/uL Carbon Dioxide (22-30) mmol/L Glucose (74-99) mg/dL POC Glucose (mg/dL) 282 H 258 H (75-99) mg/dL Calcium (8.4-10.2) mg/dL Diabetes panel 09/12/20 Range/Units 15:01 Sodium 141 (137-145) mmol/L Potassium 3.6 (3.5-5.1) mmol/L Chloride 103 (98-107) mmol/L Carbon Dioxide 33 H (22-30) mmol/L BUN 19 (9-20) mg/dL Creatinine 0.81 (0.66-1.25) mg/dL Glucose 217 H (74-99) mg/dL Calcium 8.3 L (8.4-10.2) mg/dL AST 23 (17-59) U/L ALT 18 (4-49) U/L Alkaline Phosphatase 110 (38-126) U/L Total Protein 6.6 (6.3-8.2) g/dL Albumin 3.7 (3.5-5.0) g/dL Calcium panel 09/12/20 Range/Units 15:01 Calcium 8.3 L (8.4-10.2) mg/dL Albumin 3.7 (3.5-5.0) g/dL Pituitary panel 09/12/20 Range/Units 15:01 Sodium 141 (137-145) mmol/L Potassium 3.6 (3.5-5.1) mmol/L Chloride 103 (98-107) mmol/L Carbon Dioxide 33 H (22-30) mmol/L BUN 19 (9-20) mg/dL Creatinine 0.81 (0.66-1.25) mg/dL Glucose 217 H (74-99) mg/dL Calcium 8.3 L (8.4-10.2) mg/dL Adrenal panel 09/12/20 Range/Units 15:01 Sodium 141 (137-145) mmol/L Potassium 3.6 (3.5-5.1) mmol/L Chloride 103 (98-107) mmol/L Carbon Dioxide 33 H (22-30) mmol/L BUN 19 (9-20) mg/dL Creatinine 0.81 (0.66-1.25) mg/dL Glucose 217 H (74-99) mg/dL Calcium 8.3 L (8.4-10.2) mg/dL Total Bilirubin 0.8 (0.2-1.3) mg/dL AST 23 (17-59) U/L ALT 18 (4-49) U/L Alkaline Phosphatase 110 (38-126) U/L Total Protein 6.6 (6.3-8.2) g/dL Albumin 3.7 (3.5-5.0) g/dL <Uliecs Small - Last Filed: 09/13/20 15:58> History of Present Illness History of present illness: As above. Patient with lower abdominal swelling. Suspect edema from concurrent CHF. No palpable hernia. Agree with plans for CAT scan when patient is able to tolerate. No surgical intervention planned at this time. Surgical - Exam Vital Signs Temp Pulse Resp BP Pulse Ox 98.1 F 65 18 162/88 95 09/12/20 14:51 09/12/20 14:51 09/12/20 14:51 09/12/20 14:51 09/12/20 14:51 Results - Labs 09/12/20 15:01 09/12/20 15:01 Abnormal Lab Results - Last 24 Hours (Table) 09/12/20 09/13/20 09/13/20 Range/Units 20:56 06:42 12:10 POC Glucose (mg/dL) 292 H 282 H 258 H (75-99) mg/dL
--- NOTE | 2020-09-13 15:07 | P.CNPUL ---
History of Present Illness Consult date: 09/13/20 Requesting physician: Reed Lanza Reason for consult: dyspnea, pleural effusion Chief complaint: Dyspnea, weight gain History of present illness: 80-year-old white male patient of Dr. Colon with past medical history of chronic congestive heart failure with diastolic dysfunction, coronary artery disease with previous stenting, hypertension, morbid obesity, diabetes mellitus type 2, paroxysmal atrial fibrillation, previous history of TIA, BPH, chronic lower extremity edema with history of venous stasis ulcers, generalized anxiety disorder and panic attacks. Patient is a lifetime nonsmoker, he denies any history of chronic lung disease, he denies history of obstructive sleep apnea, he states he had a sleep study several years ago and apparently he passed, however he has gained significant amount of weight since then. On 09/12/2020 patient presented to the emergency department for evaluation of worsening dyspnea, weight gain. Apparently he has gained greater than 20 pounds in the last several weeks, and was experiencing worsening dyspnea over the past week. He denied any cough or fever, denied any chest pain. He reports of significant abdominal wall edema, as well as significant lower extremity edema. She cannot lie flat related to orthopnea. Chest x-ray showed right-sided diaphragmatic elevation seen on previous film from January 2020. There was underlying increased density that could reflect developing infiltrate or atelectasis. No sizable pleural fluid pocket was identified on the chest ultrasound. CBC showed no evidence of leukocytosis, with a total course of 7.6, hemoglobin is 14.7, coagulation profile, electrolytes and renal profile are unremarkable with the exception of CO2 which is elevated at 33, however looking back on his labs this elevation in his bicarbonate level is not chronic, renal profile is within normal limits with BUN of 19 creatinine 0.81, lactic acid is 1.1, proBNP was 505, troponin is less than 0.012. Patient is on empiric antibiotics in the form of Rocephin, started on IV diuretics currently at 40 mg every 8 hours, cardio logy evaluation was obtained, and patient was diagnosed with acute exacerbation of chronic diastolic congestive heart failure. Cardiogram was completed showing severe concentric LVH, preserved left ventricular systolic function with an EF between 55 and 60%, mild MR, mild TR, no evidence of pulmonary hypertension with PA pressure of 25 mmHg. Review of Systems All systems: negative Constitutional: Reports weight gain, Denies chills, Denies fever Eyes: denies blurred vision, denies pain Ears, nose, mouth and throat: Denies headache, Denies sore throat Cardiovascular: Reports dyspnea on exertion, Reports leg edema, Reports orthopnea, Denies chest pain, Denies shortness of breath Respiratory: Reports dyspnea, Denies cough Gastrointestinal: Denies abdominal pain, Denies diarrhea, Denies nausea, Denies vomiting Musculoskeletal: Denies myalgias Integumentary: Denies pruritus, Denies rash Neurological: Denies numbness, Denies weakness Psychiatric: Denies anxiety, Denies depression Endocrine: Denies fatigue, Denies weight change Past Medical History Past Medical History: Atrial Fibrillation, Heart Failure, Diabetes Mellitus, Hyperlipidemia, Hypertension, Osteoarthritis (OA) Additional Past Medical History / Comment(s): edema jeffrey lower legs that comes and goes,hx kidney stones, hx migraines, Pneumonia 2018, cleft palate - repair History of Any Multi-Drug Resistant Organisms: None Reported Past Surgical History: Heart Catheterization With Stent, Orthopedic Surgery, Tonsillectomy Additional Past Surgical History / Comment(s): left shoulder surgery, surgery jeffrey knees, rt hand surgery for fx fingers from work injury, left hand surgery fx finger from sports injury, jeffrey cataracts, Past Anesthesia/Blood Transfusion Reactions: No Reported Reaction Date of Last Stent Placement:: 2018 Past Psychological History: Anxiety, Panic Disorder Additional Psychological History / Comment(s): panic attacks Smoking Status: Never smoker Past Alcohol Use History: None Reported Past Drug Use History: None Reported - Past Family History Father Family Medical History: No Reported History Additional Family Medical History / Comment(s): Father was a heavy smoker. He of a [place] at the age of 42yrs. Mother Family Medical History: Cancer Additional Family Medical History / Comment(s): . Medications and Allergies Home Medications Medication Instructions Recorded Confirmed Type Atorvastatin [Lipitor] 10 mg PO HS 05/05/16 09/12/20 History Finasteride [Proscar] 5 mg PO DAILY 05/05/16 09/12/20 History DULoxetine HCL [Cymbalta] 30 mg PO DAILY 06/03/18 09/12/20 History Isosorbide Mononitrate ER [Imdur] 30 mg PO BID 06/03/18 09/12/20 History Furosemide [Lasix] 40 mg PO DAILY@0800,1200 12/08/18 09/12/20 History Insuln Asp Prt/Insulin Aspart 50 unit SQ BID 12/08/18 09/12/20 History [NovoLOG MIX 70-30 VIAL] Sertraline HCl [Zoloft] 200 mg PO HS 12/08/18 09/12/20 History amLODIPine [Norvasc] 10 mg PO DAILY 12/08/18 09/12/20 History Insulin Degludec [Tresiba 40 units SQ HS 01/13/19 09/12/20 History Flextouch U-100] hydrALAZINE HCL [Apresoline] 50 mg PO TID #180 tab 01/19/19 09/12/20 Rx Apixaban [Eliquis] 5 mg PO BID 01/21/19 09/12/20 History Brinzolamide/Brimonidine Tart 1 drop RIGHT EYE TID 01/21/19 09/12/20 History [Simbrinza 1%-0.2% Eye Drops] ALPRAZolam [Xanax] 0.25 mg PO Q8H PRN 09/12/20 09/12/20 History Albuterol Sulfate [Proair Hfa] 1 - 2 puff INHALATION RT-QID PRN 09/12/20 09/12/20 History Aspirin EC [Ecotrin Low Dose] 81 mg PO DAILY 09/12/20 09/12/20 History Carvedilol [Coreg] 6.25 mg PO BID 09/12/20 09/12/20 History Docusate [Colace] 100 mg PO BID 09/12/20 09/12/20 History Ferrous Sulfate [Feosol] 325 mg PO DAILY 09/12/20 09/12/20 History Losartan [Cozaar] 50 mg PO BID 09/12/20 09/12/20 History Potassium Chloride ER [K-Dur 10] 10 meq PO DAILY 09/12/20 09/12/20 History traZODone HCL 50 mg PO HS 09/12/20 09/12/20 History Allergies Allergy/AdvReac Type Severity Reaction Status Date / Time No Known Allergies Allergy Verified 09/12/20 17:20 Physical Exam Vitals: Vital Signs Temp Pulse Pulse Resp BP BP Pulse Ox 09/13/20 09:00 24 09/13/20 08:04 98.3 F 89 24 197/91 96 09/13/20 04:40 97.4 F L 84 20 178/67 94 L 09/12/20 19:30 97.3 F L 82 22 178/75 94 L 09/12/20 18:00 98.0 F 72 20 152/86 98 09/12/20 17:00 98.0 F 78 20 158/84 98 09/12/20 16:47 63 18 09/12/20 16:37 66 18 09/12/20 16:00 64 20 150/82 98 09/12/20 14:51 98.1 F 65 18 162/88 95 Intake and Output 09/12/20 09/13/20 09/13/20 22:59 06:59 14:59 Intake Total 100 Balance 100 Intake: Oral 100 Other: Voiding Method Toilet Toilet Toilet # Voids 1 1 2 Weight 158.757 kg GENERAL EXAM: Alert, very pleasant, morbidly obese 80-year-old white male, the pulse ox of 96% on room air, sitting up in the chair comfortable in no apparent distress. HEAD: Normocephalic/atraumatic. EYES: Normal reaction of pupils, equal size. Conjunctiva pink, sclera white. NOSE: Clear with pink turbinates. THROAT: No erythema or exudates. NECK: No masses, no JVD, no thyroid enlargement, no adenopathy. CHEST: No chest wall deformity. Symmetrical expansion. LUNGS: Equal air entry with diminished breath sounds at the bases CVS: Regular rate and rhythm, normal S1 and S2, no gallops, no murmurs, no rubs ABDOMEN: Soft, nontender, obese, significantly distended, with abdominal wall edema. No hepatosplenomegaly, normal bowel sounds, no guarding or rigidity. EXTREMITIES: No clubbing, significant lower extremity edema involving bilateral lower extremities no cyanosis, 2+ pulses and upper and lower extremities. MUSCULOSKELETAL: Muscle strength and tone normal. SPINE: No scoliosis or deformity SKIN: No rashes CENTRAL NERVOUS SYSTEM: Alert and oriented -3. No focal deficits, tone is normal in all 4 extremities. PSYCHIATRIC: Alert and oriented -3. Appropriate affect. Intact judgment and insight. Results - Laboratory Findings CBC and BMP: 09/12/20 15:01 09/12/20 15:01 PT/INR, D-dimer PT 10.4 sec (9.0-12.0) 09/12/20 15:01 INR 1.0 (<1.2) 09/12/20 15:01 Abnormal lab findings: Abnormal Labs 09/12/20 09/12/20 09/12/20 15:01 15:01 20:56 RDW 15.9 H Lymphocytes # 0.9 L Carbon Dioxide 33 H Glucose 217 H POC Glucose (mg/dL) 292 H Calcium 8.3 L 09/13/20 09/13/20 06:42 12:10 RDW Lymphocytes # Carbon Dioxide Glucose POC Glucose (mg/dL) 282 H 258 H Calcium - Diagnostic Findings Chest x-ray: report reviewed, image reviewed Additional studies: Ultrasound the chest film reviewed, EKG reviewed, echocardiogram reviewed Assessment and Plan Plan: Assessment: #1. Acute exacerbation of diastolic congestive heart failure, with significant weight gain, peripheral edema involving lower extremities and truncal and abdominal wall edema #2. Possibility of right hemidiaphragm paralysis #3. Possible obstructive sleep apnea, and the patient had a sleep study several years which was negative ago however since then he has gained significant amount of weight #4. Morbid obesity with a BMI of 48.8 #5. Chronic congestive heart failure with diastolic dysfunction #6. Diabetes type 2 #7. Paroxysmal atrial fibrillation on chronic anticoagulation #8. Previous history of TIA #9. Benign static hypertrophy #10. Chronic lower extremity edema with history of venous stasis ulcers #11. Generalized anxiety disorder and panic attacks #12. Coronary artery disease with previous stenting of the LAD and RCA in December 2018 #13. Lifetime nonsmoker Plan: Continue the diuretics, continue closely in his weight, electrolytes and renal profile. Chest x-ray has been reviewed, ultrasound the chest have been reviewed, no sizable pleural effusion pocket was identified, and the findings of the chest x-ray from this admission and his previous admissions point to the po ssibility of a right hemidiaphragmatic paralysis. Patient may have underlying obstructive sleep apnea, we may have to evaluate him for it on an outpatient basis, for now continue current medical treatment. In addition patient has significant overall general deconditioning, and morbid obesity contributing to his chronic dyspnea. I performed a history & physical examination of the patient and discussed their management with my nurse practitioner, Tori Casarez. I reviewed the nurse practitioner's note and agree with the documented findings and plan of care. Lung sounds are positive for diminished breath sounds. The findings and the impression was discussed with the patient. I attest to the documentation by the nurse practitioner. Time with Patient: Greater than 30
--- NOTE | 2020-09-13 15:16 | US ---
EXAMINATION TYPE: US chest DATE OF EXAM: 09/13/2020 COMPARISON: Chest radiograph 09/12/2020 CLINICAL HISTORY: dyspnea and pleural effusion. Pleural effusion TECHNIQUE: Targeted ultrasound of the posterior lower bilateral hemithoraces EXAM MEASUREMENTS: No fluid visualized bilaterally. Pulmonologists are able to review the images in the patient?s EMR. IMPRESSIONS: No pleural effusions bilaterally.
[2020-09-13 15:36] VITALS: BMI 48.8
[2020-09-13 16:59] LABS: Glucose,Whole Blood 197 mg/dL (75-99)
[2020-09-13 20:21] LABS: Glucose,Whole Blood 185 mg/dL (75-99)
[2020-09-13] MEDS: ATORVASTATIN 10 MG TAB PO SCH (20:55)
[2020-09-13] MEDS: SERTRALINE 100 MG TAB PO SCH (20:55)
[2020-09-13] MEDS: traZODone HCL 50 MG TAB PO SCH (20:55)
[2020-09-13] MEDS: PANTOPRAZOLE 40 MG TABLET PO SCH (20:56)
[2020-09-13] MEDS: INSULIN DETEMIR (LEVEMIR) 100 UNIT/ML SYR SQ SCH (20:57)
[2020-09-14 06:14] LABS: Glucose,Whole Blood 56 mg/dL (75-99)
[2020-09-14 06:32] LABS: Glucose,Whole Blood 84 mg/dL (75-99)
[2020-09-14] MEDS: INSULIN ASPART (NovoLOG) 100 UNIT/ML VIAL SQ SCH ×4 (06:32→22:12)
[2020-09-14] MEDS: FERROUS SULFATE 325 MG TAB PO SCH (08:07)
[2020-09-14] MEDS: LOSARTAN 50 MG TAB PO SCH ×2 (08:13→22:17)
[2020-09-14] MEDS: POTASSIUM CHLORIDE ER 10 MEQ TAB.ER.PRT PO SCH (08:13)
[2020-09-14] MEDS: ASPIRIN 81 MG PO SCH (08:13)
[2020-09-14] MEDS: FUROSEMIDE 10 MG/ML 4 ML VIAL IV SCH ×3 (08:13→23:50)
[2020-09-14] MEDS: DORZOLAMIDE HCL 2% DROPS 10 ML BTL RIGHT EYE SCH ×3 (08:13→22:16)
[2020-09-14] MEDS: BRIMONIDINE TARTRATE 0.2% DROPS 5 ML BTL RIGHT EYE SCH ×3 (08:13→22:16)
[2020-09-14] MEDS: hydrALAZINE HCL 50 MG TAB PO SCH ×3 (08:13→22:17)
[2020-09-14] MEDS: carvediloL 6.25 MG TAB PO SCH ×2 (08:14→22:09)
[2020-09-14] MEDS: PANTOPRAZOLE 40 MG TABLET PO SCH ×2 (08:14→22:09)
[2020-09-14] MEDS: ISOSORBIDE MONONITRATE ER 30 MG TAB.ER.24H PO SCH ×2 (08:14→22:16)
[2020-09-14] MEDS: DOCUSATE 100 MG CAP PO SCH ×2 (08:14→22:16)
[2020-09-14] MEDS: DULoxetine HCL 30 MG CAPSULE.DR PO SCH (08:16)
[2020-09-14] MEDS: FINASTERIDE 5 MG TAB PO SCH (08:16)
--- NOTE | 2020-09-14 09:04 | PN ---
PROGRESS NOTE Mr. Ceballos is a 80-year-old male who presented with symptoms of progressive dyspnea. He has a known history of morbid obesity, history of coronary artery disease, history of paroxysmal fibrillation, chronic obstructive lung disease and heart failure with preserved systolic function, who presented with symptoms of worsening dyspnea. He is feeling better today. He continues to have significant dyspnea on exertion. He denies any dizziness, palpitation. He denies any nausea. He had an echocardiogram that revealed a preserved systolic function with mild mitral and tricuspid regurgitation. He had a chest ultrasound that revealed no evidence of pleural effusion. He continues to be at this time on aspirin once a day, Coreg 6.5 mg twice a day, Lasix 40 mg IV q.8 hours, hydralazine 50 mg 3 times a day, isosorbide mononitrate 30 mg twice a day, Cozaar 50 mg twice a day, potassium, sertraline, trazodone, and amlodipine 10 mg daily. PHYSICAL EXAMINATION: Blood pressure 145/60 with a heart rate in the 80s. LUNGS: With decreased air exchange, no wheezes. HEART: Irregular, regular, S1, S2. No S3. No rub with a systolic murmur. ABDOMEN: Soft, obese, nontender. EXTREMITIES: +2 to 3 edema bilaterally. LAB DATA: Pending for the morning. IMPRESSION: 1. Symptoms of progressive dyspnea with possible congestive heart failure and preserved systolic function. 2. History of coronary artery disease, stable. 3. Atrial fibrillation, anticoagulated. 4. Morbid obesity. 5. Possible obstructive sleep apnea. 6. History of venostasis and ulceration. RECOMMENDATION: From the cardiac standpoint, I will continue IV diuretic. Continue the rest of his medical regimen, reinitiate anticoagulation. Follow his renal function and depending on his progress, further recommendation will be made. MMODL / IJN: [id number] /
[2020-09-14] MEDS: amLODIPine 10 MG TAB PO SCH (10:32)
[2020-09-14] MEDS: APIXABAN 5 MG TAB PO SCH ×2 (10:32→22:17)
--- NOTE | 2020-09-14 10:37 | XR ---
EXAMINATION TYPE: XR chest 2V DATE OF EXAM: 09/14/2020 COMPARISON: 09/12/2020 TECHNIQUE: PA and lateral views submitted. HISTORY: Shortness of breath FINDINGS: The lungs are clear and there is no pneumothorax, pleural effusion, or focal pneumonia. Coarsened i nterstitium. Exam limited by technique and artifact. Subsegmental changes at the lung bases. IMPRESSION: 1. Bibasilar subsegmental consolidation and interstitial pattern correlate for interstitial pneumonit is versus CHF.
[2020-09-14 11:57] LABS: Glucose,Whole Blood 129 mg/dL (75-99)
--- NOTE | 2020-09-14 12:19 | P.PN ---
Subjective Progress Note Date: 09/14/20 Principal diagnosis: Dyspnea, weight gain 80-year-old white male patient of Dr. Colon with past medical history of chronic congestive heart failure with diastolic dysfunction, coronary artery disease with previous stenting, hypertension, morbid obesity, diabetes mellitus type 2, paroxysmal atrial fibrillation, previous history of TIA, BPH, chronic lower extremity edema with history of venous stasis ulcers, generalized anxiety disorder and panic attacks. Patient is a lifetime nonsmoker, he denies any history of chronic lung disease, he denies history of obstructive sleep apnea, he states he had a sleep study several years ago and apparently he passed, however he has gained significant amount of weight since then. On 09/12/2020 patient presented to the emergency department for evaluation of worsening dyspnea, weight gain. Apparently he has gained greater than 20 pounds in the last several weeks, and was experiencing worsening dyspnea over the past week. He denied any cough or fever, denied any chest pain. He reports of significant abdominal wall edema, as well as significant lower extremity edema. She cannot lie flat related to orthopnea. Chest x-ray showed right-sided diaphragmatic elevation seen on previous film from January 2020. There was underlying increased density that could reflect developing infiltrate or atelectasis. No sizable pleural fluid pocket was identified on the chest ultrasound. CBC showed no evidence of leukocytosis, with a total course of 7.6, hemoglobin is 14.7, coagulation profile, electrolytes and renal profile are unremarkable with the exception of CO2 which is elevated at 33, however looking back on his labs this elevation in his bicarbonate level is not chronic, renal profile is within normal limits with BUN of 19 creatinine 0.81, lactic acid is 1.1, proBNP was 505, troponin is less than 0.012. Patient is on empiric antibiotics in the form of Rocephin, started on IV diuretics currently at 40 mg every 8 hours, card iology evaluation was obtained, and patient was diagnosed with acute exacerbation of chronic diastolic congestive heart failure. Cardiogram was completed showing severe concentric LVH, preserved left ventricular systolic function with an EF between 55 and 60%, mild MR, mild TR, no evidence of pulmo nary hypertension with PA pressure of 25 mmHg. On 09/14/2020 patient seen in follow-up on cardiac observation unit. He is awake and alert, he is currently sitting up in the chair, room air pulse ox is 93-95%, hemodynamically stable, he is breathing comfortably, lung sounds are clear to auscultation, still has significant amount of swelling in his lower extremities, and some of it is chronic in nature. She remains on IV Lasix 40 mg every 8 hours. His net fluid balance is difficult to estimate as there is no accurate intake and output recorded in the computer, and on the insurance a reliable weight recorded in the chart, as it shows that patient has actually gained 2.8 kg in the last 24 hours. No rhonchi, no wheezing, no, the chest pain, no cough or congestion. Today's chest x-ray showing bibasilar subsegmental consolidation and interstitial pattern. Objective - Vital Signs Vital signs: Vital Signs Temp 97.6 F 09/14/20 07:59 Pulse 87 09/14/20 07:59 Resp 20 09/14/20 09:00 BP 144/62 09/14/20 10:31 Pulse Ox 93 L 09/14/20 07:59 Intake & Output 09/13/20 09/14/20 09/14/20 18:59 06:59 18:59 Intake Total 440 120 Balance 440 120 Weight 158.757 kg 161.3 kg Intake: Oral 440 120 Other: Voiding Method Toilet Toilet Toilet # Voids 2 1 1 # Bowel Movements 1 - Exam GENERAL EXAM: Alert, very pleasant, morbidly obese 80-year-old white male, the pulse ox of 96% on room air, sitting up in the chair comfortable in no apparent distress. HEAD: Normocephalic/atraumatic. EYES: Normal reaction of pupils, equal size. Conjunctiva pink, sclera white. NOSE: Clear with pink turbinates. THROAT: No erythema or exudates. NECK: No masses, no JVD, no thyroid enlargement, no adenopathy. CHEST: No chest wall deformity. Symmetrical expansion. LUNGS: Equal air entry with diminished breath sounds at the bases CVS: Regular rate and rhythm, normal S1 and S2, no gallops, no murmurs, no rubs ABDOMEN: Soft, nontender, obese, significantly distended, with abdominal wall edema. No hepatosplenomegaly, normal bowel sounds, no guarding or rigidity. EXTREMITIES: No clubbing, significant lower extremity edema involving bilateral lower extremities no cyanosis, 2+ pulses and upper and lower extremities. MUSCULOSKELETAL: Muscle strength and tone normal. SPINE: No scoliosis or deformity SKIN: No rashes CENTRAL NERVOUS SYSTEM: Alert and oriented -3. No focal deficits, tone is normal in all 4 extremities. PSYCHIATRIC: Alert and oriented -3. Appropriate affect. Intact judgment and insight. - Labs CBC & Chem 7: 09/12/20 15:01 09/12/20 15:01 Labs: Abnormal Lab Results - Last 24 Hours (Table) 09/13/20 09/13/20 09/14/20 Range/Units 16:57 20:17 06:03 POC Glucose (mg/dL) 197 H 185 H 56 L (75-99) mg/dL 09/14/20 Range/Units 11:53 POC Glucose (mg/dL) 129 H (75-99) mg/dL Microbiology - Last 24 Hours (Table) 09/12/20 17:48 Blood Culture - Preliminary Blood No Growth after 24 hours Assessment and Plan Plan: Assessment: #1. Acute exacerbation of diastolic congestive heart failure and chronic cor pulmonale, with significant weight gain, peripheral edema involving lower extremities and truncal and abdominal wall edema, #2. Possibility of right hemidiaphragm paralysis #3. Possible obstructive sleep apnea, and the patient had a sleep study several years which was negative ago however since then he has gained significant amount of weight #4. Morbid obesity with a BMI of 48.8 #5. Chronic congestive heart failure with diastolic dysfunction #6. Diabetes type 2 #7. Paroxysmal atrial fibrillation on chronic anticoagulation #8. Previous history of TIA #9. Benign static hypertrophy #10. Chronic lower extremity edema with history of venous stasis ulcers #11. Generalized anxiety disorder and panic attacks #12. Coronary artery disease with previous stenting of the LAD and RCA in December 2018 #13. Lifetime nonsmoker Plan: Continue with IV diuretics, patient is doing well, he is breathing comfortably, he is on room air, no acute events overnight. Continue following electrolytes and renal profile, daily weight. he was recommended to have outpatient sleep study. Otherwise continue current medical treatment, follow-up with Dr. Shah in the office in 7-10 days after discharge. I performed a history & physical examination of the patient and discussed their management with my nurse practitioner, Tori Casarez. I reviewed the nurse practitioner's note and agree with the documented findings and plan of care. Lung sounds are positive for diminished breath sounds. The findings and the impression was discussed with the patient. I attest to the documentation by the nurse practitioner. Time with Patient: Less than 30
--- NOTE | 2020-09-14 12:24 | P.PN ---
Subjective Progress Note Date: 09/14/20 HISTORY OF PRESENT ILLNESS 80-year-old male one of my office patient with severe morbid obesity with BMI of 48.8 who had long-standing history of COPD, CHF, insulin resistant type 2 diabetes, anasarca and chronic edema, CAD post PCI and stent placement in the past, kidney stone, recurrent pneumonia and severe neuropathy with recurrent vascular Celexa the lower extremity who was seen in the office last few weeks for recurrent cellulitis with worsening symptom which has improved last 2 weeks but he presented today with over 20 pounds weight gain with anasarca and swelling all over especially in lower extremity and abdominal region area with some thick edema of the abdominal wall. Patient was not able to ambulate and walk was in severe dyspnea and mild respiratory failure ended up coming to the emergency department with help where was seen and evaluated his chest x-ray s howed large pleural effusion with questionable of either rupture are paralyzed diaphragma in the right side patient had mild hypoxia continued to have significant abdominal pain abdominal and chest CAT scan was requested before his admission and was not performed yet patient was admitted to the hospital be treated for pneumonia and congestive heart failure excessive patient will be on IV diuretics will watch his kidney function carefully also we'll consult pulmonary and possible need general surgeon for possible incarceration or rupture diaphragma to be determined after the CAT scan. If the meanwhile patient is more comfortable when he sat up in bed not able to lay down flat. 09/13: Patient continues to be unable to lay flat. He is unable to undergo CAT scan. Dr. Burch has ordered ultrasound of the chest which has been completed and report is pending. Patient did receive eliquis this morning which will now be put on hold. Echocardiogram reveals EF of 55-60% with severe concentric left ventricle hypertrophy, LA severely dilated. No aortic stenosis or regurgitation. Severe mitral calcification. Mild mitral regurgitation, mild tricuspid regurgitation. Pericardial effusion. Patient has been seen by cardiology with recommendations to continue current management. Blood sugars running between 217-292. CAT scan of the abdomen and chest have been ordered but will be postponed due to orthopnea. 09/14: Chest ultrasound completed yesterday did not show any pleural effusions bilaterally. Chest x-ray this morning reveals bibasilar subsegmental consolidation and interstitial pattern correlate for interstitial pneumonitis versus CHF. The patient has been seen by Dr. Britton for possible ventral hernia, no palpable hernia. Agree with plans for CAT scan. Patient is able to tolerate. Patient is still having orthopnea and not able to lay flat. No surgical intervention is planned. Patient states he had shortness of breath getting up to the bathroom today. Blood sugar this morning is 56 and insulins will be adjusted. Patient has been seen by cardiology with recommendations to continue IV diuretics. Patient has also been seen by pulmonary medicine with recommendations for outpatient obstructive sleep apnea evaluation and continue current medical treatment. Patient has been afebrile, heart rate 87, blood pressure 156/82, pulse ox 93% on room air. Santyl wound care added for small wound to the buttocks area. Patient has been resumed back on eliquis. REVIEW OF SYSTEMS CONSTITUTIONAL: Will be to obesity with significant shortness of breath. No fever. No chills. EYES: No icterus sclerae, no conjunctivitis. EARS, NOSE, MOUTH, THROAT, and FACE: No sore throat, lymphadenopathy, carotid bruits or deformity. RESPIRATORY: Positive shortness of breath cough wheezes. CARDIOVASCULAR: Positive PND continued orthopnea palpitation significant edema GASTROINTESTINAL: Positive abdominal pain with nausea no vomiting significant diarrhea with distended abdomen and worsening heartburn GENITOURINARY: Large hydrocele and swelling genitalia with decrease urine output. INTEGUMENT/BREAST: Significant arthritis with worsening anasarca and edema of the lower extremity. HEMATOLOGIC/LYMPHATIC: Negative for bleed or purpura. MUSCULOSKELTAL: Negative for Myalgia or arthralgia. NEURLOGICAL: No LOC, Sz or syncope, blurred vision dizziness or abnormality. BEHAVIORAL/PSYCH: Negative. ENDOCRINE: Elevated blood sugars. PHYSICAL EXAMINATION General Appearance: Alert, cooperative, morbid obesity with significant shortness of breath mild respiratory distress. Patient is sitting in chair. 80-year-old male. Neck HEENT: Supple, no lymphadenopathy, no thyroid enlargement, no carotid bruits. Lungs: Decreased breath sound mostly in the right side with significant crackles in the bases positive mild inspiratory expiratory wheezes Chest Wall: Decrease expansion with deep inspiration especially in the right side no tenderness and no deformity was found on exam, no costochondral pain or discomfort. Heart: Irregular rate and rhythm, S1, S2 positive S3 positive systolic murmur with JVD. Back: Symmetric, no curvature, ROM normal, no CVA tenderness. Abdomen: Morbidly obese, distended with abdominal wall edema. No tenderness. Extremities: Significant discoloration worsening from the knee down with 2+ edema decreased pulse bilaterally. Significant arthritis of both knees. Skin: Skin color, texture, tugor normal, no rashes or lesions. Neurologic: Alert oriented x3 cranial nerves II through XII intact, no motor deficit, no abnormal balance or gait. ASSESSMENT AND PLAN 1 severe dyspnea and shortness of breath: Combination of diastolic congestive heart failure, A. fib with RVR, COPD. Possible pleural effusion ruled out. 2 severe anasarca. Continue furosemide 40 mg IV every 8 hours. 3 acute on chronic diastolic heart failure with possible pleural effusion. Continue IV diuretics, cardiology consult appreciated, echocardiogram as above. 4 bilateral worsening right-sided infiltrating. Patient received IV antibiotics in the emergency center. Pulmonary medicine evaluation. Ultrasound of the chest. 5 severe abdominal pain with questionable of incarceration most likely for internal hernia patient be going for CT of the abdomen and the chest try to exclude any possibility for rupture of the diaphragmatic and herniation going through the abdominal all the way through the diaphragmatic to the chest area. 6 type 2 diabetes uncontrolled with hyperglycemia secondary to illness and steroids: Continue patient on Levemir along with Novolin 70/30 continue Accu- Chek with sliding scales coverage will hold metformin for now. 7 recurrent cellulitis of lower extremity: Patient is doing slightly but better with no antibiotic for the Celexa this point. 8 paroxysmal atrial fibrillation. Continue Coreg and eliquis. 9 hyperlipidemia: Patient is on Lipitor 10 mg daily. 10 hypertension. Continue Coreg 6.5 mg twice daily, hydralazine 50 mg 3 times daily, amlodipine 10 mg daily, losartan 50 mg twice daily. 11 CAD post PCI and stent placement. Continue Imdur 30 mg twice daily. Cardiology consult. 12 recurrent depression remain on Xanax along with duloxetine the trazodone and Zoloft. 13 BPH: Remain on finasteride with no urinary retention at this point. 14 moderate size hydrocele: No need for Fierro catheter at this point hopefully with treatment of anasarca might help to reduce the swelling. 15 ventral hernia, rectal fistula ruled out. Consult with Dr. Small appreciated 16 GI prophylaxis: Patient be on pantoprazole 40 mg twice a day. 17 DVT prophylaxis: Resume eliquis. CODE STATUS: Full code. Discharge plan: home w [facility]. Impression and plan of care have been directed as dictated by the signing physician. Farheen Knapp nurse practitioner acting as scribe for signing physician. Objective - Vital Signs Vital signs: Vital Signs Temp 97.6 F 09/14/20 07:59 Pulse 87 09/14/20 07:59 Resp 20 09/14/20 09:00 BP 156/82 09/14/20 07:59 Pulse Ox 93 L 09/14/20 07:59 Intake & Output 09/13/20 09/14/20 09/14/20 18:59 06:59 18:59 Intake Total 440 120 Balance 440 120 Weight 158.757 kg 161.3 kg Intake: Oral 440 120 Other: Voiding Method Toilet Toilet Toilet # Voids 2 1 1 # Bowel Movements 1 - Labs CBC & Chem 7: 09/12/20 15:01 09/12/20 15:01 Labs: Abnormal Lab Results - Last 24 Hours (Table) 09/13/20 09/13/20 09/13/20 Range/Units 12:10 16:57 20:17 POC Glucose (mg/dL) 258 H 197 H 185 H (75-99) mg/dL 09/14/20 Range/Units 06:03 POC Glucose (mg/dL) 56 L (75-99) mg/dL Microbiology - Last 24 Hours (Table) 09/12/20 17:48 Blood Culture - Preliminary Blood No Growth after 24 hours
[2020-09-14] MEDS ORDERED: COLLAGENASE 250 UNIT/GM OINTMENT 30 GM TUBE TOPICAL SCH (12:30)
--- NOTE | 2020-09-14 14:44 | P.PN ---
Subjective Progress Note Date: 09/14/20 CHIEF COMPLAINT: Shortness of breath HISTORY OF PRESENT ILLNESS: Patient is being treated for an acute CHF exacerbation. Patient has no ventral hernia. Lower abdominal swelling and suspected edema from patient CHF. Afebrile PHYSICAL EXAM: VITAL SIGNS: Reviewed. GENERAL: Well-developed in no acute distress. HEENT: No sclera icterus. Extraocular movements grossly intact. Moist buccal mucosa. Head is atraumatic, normocephalic. ABDOMEN: Soft. Obese. Lower abdominal swelling Nontender. NEUROLOGIC: Alert and oriented. Cranial nerves II through XII grossly intact. ASSESSMENT: 1. Lower abdominal swelling and edema likely secondary to patient's CHF exacerbation. No palpable hernia 2. small 2 cm ulceration underneath the right buttocks 3. Acute diastolic CHF exacerbation 4. Possible pleural effusion and right-sided pneumonitis 5. Morbid obesity PLAN: -No surgical intervention planned Physician Power Plant Inspector note has been reviewed by physician. Signing provider agrees with the documented findings, assessment, and plan of care. Objective - Vital Signs Vital signs: Vital Signs Temp 97.6 F 09/14/20 07:59 Pulse 87 09/14/20 07:59 Resp 20 09/14/20 09:00 BP 144/62 09/14/20 10:31 Pulse Ox 93 L 09/14/20 07:59 Intake & Output 09/13/20 09/14/20 09/14/20 18:59 06:59 18:59 Intake Total 440 320 Balance 440 320 Weight 158.757 kg 161.3 kg Intake: Oral 440 320 Other: Voiding Method Toilet Toilet Toilet # Voids 2 1 1 # Bowel Movements 1 - Labs CBC & Chem 7: 09/12/20 15:01 09/12/20 15:01 Labs: Abnormal Lab Results - Last 24 Hours (Table) 09/13/20 09/13/20 09/14/20 Range/Units 16:57 20:17 06:03 POC Glucose (mg/dL) 197 H 185 H 56 L (75-99) mg/dL 09/14/20 Range/Units 11:53 POC Glucose (mg/dL) 129 H (75-99) mg/dL Microbiology - Last 24 Hours (Table) 09/12/20 17:48 Blood Culture - Preliminary Blood No Growth after 24 hours
[2020-09-14 16:50] LABS: Glucose,Whole Blood 164 mg/dL (75-99)
[2020-09-14] MEDS ORDERED: INSULN ASP PRT/INSULIN ASPART 100 UNIT/ML 10 ML VIAL SQ SCH (21:00)
[2020-09-14 22:02] LABS: Glucose,Whole Blood 259 mg/dL (75-99)
[2020-09-14] MEDS: SERTRALINE 100 MG TAB PO SCH (22:12)
[2020-09-14] MEDS: ATORVASTATIN 10 MG TAB PO SCH (22:17)
[2020-09-14] MEDS: INSULIN DETEMIR (LEVEMIR) 100 UNIT/ML SYR SQ SCH (22:17)
[2020-09-14] MEDS: traZODone HCL 50 MG TAB PO SCH (22:17)
[2020-09-15 05:43] LABS: Calcium 8.3 mg/dL (8.4-10.2); Potassium 3.3 mmol/L (3.5-5.1)
[2020-09-15 07:04] LABS: Glucose,Whole Blood 81 mg/dL (75-99)
[2020-09-15] MEDS: INSULIN ASPART (NovoLOG) 100 UNIT/ML VIAL SQ SCH ×4 (08:26→21:30)
[2020-09-15] MEDS: FUROSEMIDE 10 MG/ML 4 ML VIAL IV SCH ×3 (08:38→23:31)
[2020-09-15] MEDS: DULoxetine HCL 30 MG CAPSULE.DR PO SCH (08:38)
[2020-09-15] MEDS: ASPIRIN 81 MG PO SCH (08:38)
[2020-09-15] MEDS: DOCUSATE 100 MG CAP PO SCH ×2 (08:39→21:44)
[2020-09-15] MEDS: carvediloL 6.25 MG TAB PO SCH ×2 (08:39→21:44)
[2020-09-15] MEDS: hydrALAZINE HCL 50 MG TAB PO SCH ×3 (08:39→21:44)
[2020-09-15] MEDS: POTASSIUM CHLORIDE ER 10 MEQ TAB.ER.PRT PO SCH (08:39)
[2020-09-15] MEDS: FERROUS SULFATE 325 MG TAB PO SCH (08:39)
[2020-09-15] MEDS: ISOSORBIDE MONONITRATE ER 30 MG TAB.ER.24H PO SCH ×2 (08:39→21:44)
[2020-09-15] MEDS: PANTOPRAZOLE 40 MG TABLET PO SCH ×2 (08:39→21:44)
[2020-09-15] MEDS: amLODIPine 10 MG TAB PO SCH (08:39)
[2020-09-15] MEDS: APIXABAN 5 MG TAB PO SCH ×2 (08:39→21:44)
[2020-09-15] MEDS: BRIMONIDINE TARTRATE 0.2% DROPS 5 ML BTL RIGHT EYE SCH ×3 (08:40→21:43)
[2020-09-15] MEDS: FINASTERIDE 5 MG TAB PO SCH (08:40)
[2020-09-15] MEDS: LOSARTAN 50 MG TAB PO SCH ×2 (08:40→21:44)
[2020-09-15] MEDS: DORZOLAMIDE HCL 2% DROPS 10 ML BTL RIGHT EYE SCH ×3 (08:41→21:43)
[2020-09-15] MEDS ORDERED: Potassium Replacement Protocol 1 EACH MISC MISCELLANE PRN (08:53)
[2020-09-15] MEDS: POTASSIUM CHLORIDE ER 20 MEQ TAB.ER PO SCH ×2 (09:25→10:14)
[2020-09-15] MEDS: LORATADINE 10 MG TAB PO PRN (09:25)
--- NOTE | 2020-09-15 09:39 | P.PN ---
Subjective Progress Note Date: 09/15/20 Principal diagnosis: Severe dyspnea and shortness of breath, anasarca, chronic diastolic congestive heart failure, right-sided pneumonia and pleural effusion, type 2 diabetes, recu rrent Celexa the lower extremity, paroxysmal A. fib with RVR, CAD post PCI, BPH, moderate-sized hydrocele, large ventral hernia. 80-year-old male one of my office patient with severe morbid obesity with BMI of 48.8 who had long-standing history of COPD, CHF, insulin resistant type 2 diabetes, anasarca and chronic edema, CAD post PCI and stent placement in the past, kidney stone, recurrent pneumonia and severe neuropathy with recurrent vascular Celexa the lower extremity who was seen in the office last few weeks for recurrent cellulitis with worsening symptom which has improved last 2 weeks but he presented today with over 20 pounds weight gain with anasarca and swelling all over especially in lower extremity and abdominal region area with some thick edema of the abdominal wall. Patient was not able to ambulate and walk was in severe dyspnea and mild respiratory failure ended up coming to the emergency department with help where was seen and evaluated his chest x-ray showed large pleural effusion with questionable of either rupture are paralyzed diaphragma in the right side patient had mild hypoxia continued to have significant abdominal pain abdominal and chest CAT scan was requested before his admission and was not performed yet patient was admitted to the hospital be treated for pneumonia and congestive heart failure excessive patient will be on IV diuretics will watch his kidney function carefully also we'll consult pulmonary and possible need general surgeon for possible incarceration or rupture diaphragma to be determined after the CAT scan. If the meanwhile patient is more comfortable when he sat up in bed not able to lay down flat. 09/13: Patient continues to be unable to lay flat. He is unable to undergo CAT scan. Dr. Burch has ordered ultrasound of the chest which has been completed and report is pending. Patient did receive eliquis this morning which will now be put on hold. Echocardiogram reveals EF of 55-60% with severe concentric left ventricle hypertrophy, LA severely dilated. No aortic stenosis or regurgitation. Severe mitral calcification. Mild mitral regurgitation, mild tricuspid regurgitation. Pericardial effusion. Patient has been seen by cardiology with recommendations to continue current management. Blood sugars running between 217-292. CAT scan of the abdomen and chest have been ordered but will be postponed due to orthopnea. 09/14: Chest ultrasound completed yesterday did not show any pleural effusions bilaterally. Chest x-ray this morning reveals bibasilar subsegmental consolidation and interstitial pattern correlate for interstitial pneumonitis versus CHF. The patient has been seen by Dr. Britton for possible ventral hernia, no palpable hernia. Agree with plans for CAT scan. Patient is able to tolerate. Patient is still having orthopnea and not able to lay flat. No surgical intervention is planned. Patient states he had shortness of breath getting up to the bathroom today. Blood sugar this morning is 56 and insulins will be adjusted. Patient has been seen by cardiology with recommendations to continue IV diuretics. Patient has also been seen by pulmonary medicine with recommendations for outpatient obstructive sleep apnea evaluation and continue current medical treatment. Patient has been afebrile, heart rate 87, blood pressure 156/82, pulse ox 93% on room air. Santyl wound care added for small wound to the buttocks area. Patient has been resumed back on eliquis. 09/15: His potassium slightly bit low we'll continue potassium supplement this point we'll repeat his magnesium potassium level IV today and tomorrow, repeat chest x-ray showed slight expansion of the right lung field with the pneumonia is much better treated this point we'll continue his current antibiotic continue IV diuretics till tomorrow morning patient had lost few acute so far been in the hospital with the current plan for his anasarca. Hopefully will be discharged home on the weekend. No thoracentesis needed at this point and no surgical intervention for ventral hernia require. No incarceration was found. Patient is not able to lay down flat his CAT scan after the second trial could not be done sore holding off on it for now. Objective - Vital Signs Vital signs: Vital Signs Temp 97.7 F 09/15/20 04:20 Pulse 68 09/15/20 04:20 Resp 20 09/15/20 04:20 BP 134/66 09/15/20 04:20 Pulse Ox 95 09/15/20 04:20 Intake & Output 09/14/20 09/15/20 09/15/20 18:59 06:59 18:59 Intake Total 520 Balance 520 Weight 159.6 kg Intake: Oral 520 Other: Voiding Method Toilet Toilet # Voids 1 2 - Exam REVIEW OF SYSTEMS CONSTITUTIONAL: Will be to obesity with significant shortness of breath. No fever. No chills. EYES: No icterus sclerae, no conjunctivitis. EARS, NOSE, MOUTH, THROAT, and FACE: No sore throat, lymphadenopathy, carotid bruits or deformity. RESPIRATORY: Positive shortness of breath cough wheezes. CARDIOVASCULAR: Positive PND continued orthopnea palpitation significant edema GASTROINTESTINAL: Positive abdominal pain with nausea no vomiting significant diarrhea with distended abdomen and worsening heartburn GENITOURINARY: Large hydrocele and swelling genitalia with decrease urine output. INTEGUMENT/BREAST: Significant arthritis with worsening anasarca and edema of the lower extremity. HEMATOLOGIC/LYMPHATIC: Negative for bleed or purpura. MUSCULOSKELTAL: Negative for Myalgia or arthralgia. NEURLOGICAL: No LOC, Sz or syncope, blurred vision dizziness or abnormality. BEHAVIORAL/PSYCH: Negative. ENDOCRINE: Elevated blood sugars. PHYSICAL EXAMINATION General Appearance: Alert, cooperative, morbid obesity with significant shortness of breath mild respiratory distress. Patient is sitting in chair. 80-year-old male. Neck HEENT: Supple, no lymphadenopathy, no thyroid enlargement, no carotid bruits. Lungs: Decreased breath sound mostly in the right side with significant crackles in the bases positive mild inspiratory expiratory wheezes Chest Wall: Decrease expansion with deep inspiration especially in the right side no tenderness and no deformity was found on exam, no costochondral pain or discomfort. Heart: Irregular rate and rhythm, S1, S2 positive S3 positive systolic murmur with JVD. Back: Symmetric, no curvature, ROM normal, no CVA tenderness. Abdomen: Morbidly obese, distended with abdominal wall edema. No tenderness. Extremities: Significant discoloration worsening from the knee down with 2+ edema decreased pulse bilaterally. Significant arthritis of both knees. Skin: Skin color, texture, tugor normal, no rashes or lesions. Neurologic: Alert oriented x3 cranial nerves II through XII intact, no motor deficit, no abnormal balance or gait. - Labs CBC & Chem 7: 09/12/20 15:01 09/15/20 04:46 Labs: Abnormal Lab Results - Last 24 Hours (Table) 09/12/20 09/14/20 09/14/20 Range/Units 15:01 11:53 16:48 Potassium (3.5-5.1) mmol/L Carbon Dioxide (22-30) mmol/L BUN (9-20) mg/dL POC Glucose (mg/dL) 129 H 164 H (75-99) mg/dL Hemoglobin A1c 8.0 H (4.0-6.0) % Calcium (8.4-10.2) mg/dL 09/14/20 09/15/20 Range/Units 22:01 04:46 Potassium 3.3 L (3.5-5.1) mmol/L Carbon Dioxide 32 H (22-30) mmol/L BUN 31 H (9-20) mg/dL POC Glucose (mg/dL) 259 H (75-99) mg/dL Hemoglobin A1c (4.0-6.0) % Calcium 8.3 L (8.4-10.2) mg/dL Microbiology - Last 24 Hours (Table) 09/12/20 17:48 Blood Culture - Preliminary Blood No Growth after 48 hours Assessment and Plan Plan: 1 severe dyspnea and shortness of breath: Combination of diastolic congestive heart failure, A. fib with RVR, COPD. patient significantly better on current management and treatment. 2 severe anasarca. Continue furosemide 40 mg IV every 8 hours. With switch to oral Lasix by tomorrow. 3 acute on chronic diastolic heart failure with possible pleural effusion. Continue IV diuretics, cardiology consult appreciated, echocardiogram as above. No significant change an echo cardiology are still doing more adjustment of medication. 4 bilateral worsening right-sided infiltrating. Patient received IV antibiotics in the emergency center. Continue antibiotics will keep treating patient for gram-negative pneumonia even as an outpatient when his discharge home. 5 severe abdominal pain with questionable of incarceration most likely for internal hernia patient be going for CT of the abdomen and the chest try to exc lude any possibility for rupture of the diaphragmatic and herniation going through the abdominal all the way through the diaphragmatic to the chest area. 6 type 2 diabetes uncontrolled with hyperglycemia secondary to illness and steroids: Continue patient on Levemir along with Novolin 70/30 had episode of hypoglycemia this morning with switch his 7030-40 units in the morning and 30 at night as for the Levemir remain on the same dose when his discharge home will be elicited more aggressive insulin management knowing patient might be going to hypoglycemia at home except his intake is not control like to have in the hospital. 7 recurrent cellulitis of lower extremity: Patient is doing slightly but better with no antibiotic we will continue to topical product 8 paroxysmal atrial fibrillation. Continue Coreg and eliquis. Pulse rate is well-controlled. 9 hyperlipidemia: Patient is on Lipitor 10 mg daily. 10 hypertension. Continue Coreg 6.5 mg twice daily, hydralazine 50 mg 3 times d aily, amlodipine 10 mg daily, losartan 50 mg twice daily. 11 CAD post PCI and stent placement. Continue Imdur 30 mg twice daily. Cardiology consult. 12 recurrent depression remain on Xanax along with duloxetine the trazodone and Zoloft. 13 BPH: Remain on finasteride with no urinary retention at this point. 14 moderate size hydrocele: No need for Fierro catheter at this point hopefully with treatment of anasarca might help to reduce the swelling. 15 ventral hernia, rectal fistula ruled out. Consult with Dr. Small appreciated 16 GI prophylaxis: Patient be on pantoprazole 40 mg twice a day. 17 DVT prophylaxis: Resume eliquis. Discharge planning: After correcting his electrolytic imbalance the patient is doing well tomorrow and no further hypoglycemia or any acute problem patient be able to go home.
[2020-09-15] MEDS: SPIRONOLACTONE 25 MG TAB PO SCH (11:31)
--- NOTE | 2020-09-15 11:42 | P.PN ---
Subjective This is a pleasant 80-year-old male past medical history significant for paroxysmal atrial fibrillation, COPD, coronary artery disease and chronic diastolic heart failure. He follows in the office with Dr. Mcnally. He is seen and examined sitting up in the chair with his daughter at the bedside. He states overall his breathing feels better however when he gets up he still feels dyspneic with exertion. He continues to have significant lower extremity edema. Blood pressure 163/77 heart rate 76 afebrile maintaining oxygen saturation on room air. Laboratory data reviewed, sodium 141, potassium 3.3, creatinine 1.03 and magnesium 2.0. Currently maintained on Lasix 40 mg IV 3 times a day, amlodipine 10 mg daily, Eliquis 5 mg twice a day, aspirin 81 mg daily, atorvastatin 10 mg daily, hydralazine 50 mg 3 times a day, Imdur 30 mg twice a day, losartan 50 mg twice a day, carvedilol 6.25 mg twice a day and daily potassium supplementation. GENERAL: Well-appearing, well-nourished and in no acute distress. Morbidly obese. NECK: Supple without JVD or thyromegaly. LUNGS: Breath sounds clear to auscultation bilaterally. Respiration equal and unlabored. No wheezes, rales or rhonchi. Diminished bilaterally. HEART: Irregular rate and rhythm with systolic ejection murmur at the left sternal border, no rubs or gallops. S1 and S2 heard. EXTREMITIES: Normal range of motion, significant 3+ bilateral lower extremity pitting edema, bilateral erythema and sloughing. No clubbing or cyanosis. Peripheral pulses intact. ASSESSMENT Acute on chronic diastolic heart failure Chronic persistent atrial fibrillation on long-term anticoagulation History of coronary artery disease Hypertension Dyslipidemia Morbid obesity, BMI 49 PLAN Continue IV diuretics and add Aldactone 25 mg daily to his regimen. Document accurate intake and output along with daily weights is imperative for evaluation of diuresis. Follow renal function and electrolytes in the morning. Further recommendations to follow based upon clinical course. Nurse Practitioner note has been reviewed, I agree with a documented findings and plan of care. Patient was seen and examined. Objective - Vital Signs Vital signs: Vital Signs Temp 97.5 F L 09/15/20 08:34 Pulse 76 09/15/20 09:00 Resp 16 09/15/20 09:00 BP 163/77 10/17/20 08:34 Pulse Ox 94 L 09/15/20 08:34 Intake & Output 09/14/20 09/15/20 09/15/20 18:59 06:59 18:59 Intake Total 520 240 Balance 520 240 Weight 159.6 kg Intake: Oral 520 240 Other: Voiding Method Toilet Toilet Toilet # Voids 1 2 - Labs CBC & Chem 7: 09/12/20 15:01 09/15/20 04:46 Labs: Abnormal Lab Results - Last 24 Hours (Table) 09/12/20 09/14/20 09/14/20 Range/Units 15:01 11:53 16:48 Potassium (3.5-5.1) mmol/L Carbon Dioxide (22-30) mmol/L BUN (9-20) mg/dL POC Glucose (mg/dL) 129 H 164 H (75-99) mg/dL Hemoglobin A1c 8.0 H (4.0-6.0) % Calcium (8.4-10.2) mg/dL 09/14/20 09/15/20 Range/Units 22:01 04:46 Potassium 3.3 L (3.5-5.1) mmol/L Carbon Dioxide 32 H (22-30) mmol/L BUN 31 H (9-20) mg/dL POC Glucose (mg/dL) 259 H (75-99) mg/dL Hemoglobin A1c (4.0-6.0) % Calcium 8.3 L (8.4-10.2) mg/dL Microbiology - Last 24 Hours (Table) 09/12/20 17:48 Blood Culture - Preliminary Blood No Growth after 48 hours
[2020-09-15 12:42] LABS: Glucose,Whole Blood 195 mg/dL (75-99)
[2020-09-15] MEDS: INSULN ASP PRT/INSULIN ASPART 100 UNIT/ML 10 ML VIAL SQ SCH (13:16)
[2020-09-15] MEDS ORDERED: INSULN ASP PRT/INSULIN ASPART 100 UNIT/ML 10 ML VIAL SQ SCH (17:30)
[2020-09-15 18:05] LABS: Glucose,Whole Blood 181 mg/dL (75-99)
[2020-09-15 21:25] LABS: Glucose,Whole Blood 57 mg/dL (75-99)
[2020-09-15] MEDS: INSULIN DETEMIR (LEVEMIR) 100 UNIT/ML SYR SQ SCH (21:30)
[2020-09-15] MEDS: SERTRALINE 100 MG TAB PO SCH (21:44)
[2020-09-15] MEDS: ATORVASTATIN 10 MG TAB PO SCH (21:44)
[2020-09-15] MEDS: traZODone HCL 50 MG TAB PO SCH (21:44)
[2020-09-15 22:04] LABS: Glucose,Whole Blood 100 mg/dL (75-99)
[2020-09-15 23:32] LABS: Glucose,Whole Blood 192 mg/dL (75-99)
[2020-09-16 05:48] LABS: Anisocytosis Slight; Basophils # (A) 0.1 k/uL (0-0.2); Basophils % (A) 1 %; Eosinophils # (A) 0.4 k/uL (0-0.7); Eosinophils % (A) 4 %; HCT 46.9 % (39.0-53.0); HGB 14.9 gm/dL (13.0-17.5); Lymphocytes # (A) 1.1 k/uL (1.0-4.8); Lymphocytes % (A) 12 %; MCH 29.3 pg (25.0-35.0); MCHC 31.9 g/dL (31.0-37.0); MCV 92.1 fL (80.0-100.0); Mean Platelet Volume 7.7; Monocytes # (A) 0.6 k/uL (0-1.0); Monocytes % (A) 7 %; Neutrophils # (A) 6.8 k/uL (1.3-7.7); Neutrophils % (A) 74 %; Platelet Count 157 k/uL (150-450); RBC 5.09 m/uL (4.30-5.90); RDW 16.1 % (11.5-15.5); WBC 9.1 k/uL (3.8-10.6)
[2020-09-16 06:00] LABS: Albumin 3.7 g/dL (3.5-5.0); Calcium 8.2 mg/dL (8.4-10.2); Potassium 3.4 mmol/L (3.5-5.1); Total Bilirubin 0.8 mg/dL (0.2-1.3); Total Protein 6.5 g/dL (6.3-8.2)
[2020-09-16 06:53] LABS: Glucose,Whole Blood 136 mg/dL (75-99)
[2020-09-16] MEDS: DOCUSATE 100 MG CAP PO SCH (08:29)
[2020-09-16] MEDS: ISOSORBIDE MONONITRATE ER 30 MG TAB.ER.24H PO SCH (08:29)
[2020-09-16] MEDS: amLODIPine 10 MG TAB PO SCH (08:29)
[2020-09-16] MEDS: ASPIRIN 81 MG PO SCH (08:29)
[2020-09-16] MEDS: hydrALAZINE HCL 50 MG TAB PO SCH (08:29)
[2020-09-16] MEDS: DULoxetine HCL 30 MG CAPSULE.DR PO SCH (08:29)
[2020-09-16] MEDS: FUROSEMIDE 10 MG/ML 4 ML VIAL IV SCH (08:29)
[2020-09-16] MEDS: DORZOLAMIDE HCL 2% DROPS 10 ML BTL RIGHT EYE SCH (08:30)
[2020-09-16] MEDS: PANTOPRAZOLE 40 MG TABLET PO SCH (08:30)
[2020-09-16] MEDS: BRIMONIDINE TARTRATE 0.2% DROPS 5 ML BTL RIGHT EYE SCH (08:30)
[2020-09-16] MEDS: carvediloL 6.25 MG TAB PO SCH (08:30)
[2020-09-16] MEDS: LOSARTAN 50 MG TAB PO SCH (08:30)
[2020-09-16] MEDS: APIXABAN 5 MG TAB PO SCH (08:30)
[2020-09-16] MEDS: SPIRONOLACTONE 25 MG TAB PO SCH (08:30)
[2020-09-16] MEDS: INSULN ASP PRT/INSULIN ASPART 100 UNIT/ML 10 ML VIAL SQ SCH (08:31)
[2020-09-16] MEDS: POTASSIUM CHLORIDE ER 10 MEQ TAB.ER.PRT PO SCH (08:31)
[2020-09-16] MEDS: FINASTERIDE 5 MG TAB PO SCH (08:31)
[2020-09-16] MEDS: INSULIN ASPART (NovoLOG) 100 UNIT/ML VIAL SQ SCH (08:31)
[2020-09-16] MEDS: FERROUS SULFATE 325 MG TAB PO SCH (08:32)
[2020-09-16] MEDS: LORATADINE 10 MG TAB PO PRN (08:41)
[2020-09-16] MEDS: POTASSIUM CHLORIDE ER 20 MEQ TAB.ER PO SCH ×2 (09:19→10:30)
[2020-09-16 10:07] VITALS: BP 157/74; PULSE 71; RESP 16; TEMP 97.5
--- NOTE | 2020-09-16 10:13 | P.DS ---
Providers Date of admission: 09/13/20 08:58 Attending physician: Jason Colon Consults: 09/12/20 16:44 Consult Physician Routine Consulting Provider: Nima Burch Consult Reason/Comments: Dyspnea, pleural effusion Do you want consulting provider notified?: Yes Consult Physician Routine Consulting Provider: Miguel Mcnally Consult Reason/Comments: CHF Do you want consulting provider notified?: Yes 09/13/20 09:17 Consult Physician Routine Consulting Provider: Ulices Small Consult Reason/Comments: ventral hernia, possible rectal fistula Do you want consulting provider notified?: Yes Primary care physician: [facility] Course: Principal diagnosis: Severe dyspnea and shortness of breath, anasarca, chronic diastolic congestive heart failure, right-sided pneumonia and pleural effusion, type 2 diabetes, recurrent Celexa the lower extremity, paroxysmal A. fib with RVR, CAD post PCI, BPH, moderate-sized hydrocele, large ventral hernia. 80-year-old male one of my office patient with severe morbid obesity with BMI of 48.8 who had long-standing history of COPD, CHF, insulin resistant type 2 diabetes, anasarca and chronic edema, CAD post PCI and stent placement in the past, kidney stone, recurrent pneumonia and severe neuropathy with recurrent vascular Celexa the lower extremity who was seen in the office last few weeks for recurrent cellulitis with worsening symptom which has improved last 2 weeks but he presented today with over 20 pounds weight gain with anasarca and swelling all over especially in lower extremity and abdominal region area with some thick edema of the abdominal wall. Patient was not able to ambulate and walk was in severe dyspnea and mild respiratory failure ended up coming to the emergency department with help where was seen and evaluated his chest x-ray showed large pleural effusion with questionable of either rupture are paralyzed diaphragma in the right side patient had mild hypoxia continued to have significant abdominal pain abdominal and chest CAT scan was requested before his admission and was not performed yet patient was admitted to the hospital be treated for pneumonia and congestive heart failure excessive patient will be on IV diuretics will watch his kidney function carefully also we'll consult pulmonary and possible need general surgeon for possible incarceration or rupture diaphragma to be determined after the CAT scan. If the meanwhile patient is more comfortable when he sat up in bed not able to lay down flat. 09/13: Patient continues to be unable to lay flat. He is unable to undergo CAT scan. Dr. Burch has ordered ultrasound of the chest which has been completed and report is pending. Patient did receive eliquis this morning which will now be put on hold. Echocardiogram reveals EF of 55-60% with severe concentric left ventricle hypertrophy, LA severely dilated. No aortic stenosis or regurgitation. Severe mitral calcification. Mild mitral regurgitation, mild tricuspid regurgitation. Pericardial effusion. Patient has been seen by cardiology with recommendations to continue current management. Blood sugars running between 217-292. CAT scan of the abdomen and chest have been ordered but will be postponed due to orthopnea. 09/14: Chest ultrasound completed yesterday did not show any pleural effusions bilaterally. Chest x-ray this morning reveals bibasilar subsegmental consolidation and interstitial pattern correlate for interstitial pneumonitis versus CHF. The patient has been seen by Dr. Britton for possible ventral hernia, no palpable hernia. Agree with plans for CAT scan. Patient is able to tolerate. Patient is still having orthopnea and not able to lay flat. No surgical intervention is planned. Patient states he had shortness of breath getting up to the bathroom today. Blood sugar this morning is 56 and insulins will be adjusted. Patient has been seen by cardiology with recommendations to continue IV diuretics. Patient has also been seen by pulmonary medicine with recommendations for outpatient obstructive sleep apnea evaluation and continue current medical treatment. Patient has been afebrile, heart rate 87, blood pressure 156/82, pulse ox 93% on room air. Santyl wound care added for small wound to the buttocks area. Patient has been resumed back on eliquis. 09/15: His potassium slightly bit low we'll continue potassium supplement this point we'll repeat his magnesium potassium level IV today and tomorrow, repeat chest x-ray showed slight expansion of the right lung field with the pneumonia is much better treated this point we'll continue his current antibiotic continue IV diuretics till tomorrow morning patient had lost few acute so far been in the hospital with the current plan for his anasarca. Hopefully will be discharged home on the weekend. No thoracentesis needed at this point and no surgical intervention for ventral hernia require. No incarceration was found. Patient is not able to lay down flat his CAT scan after the second trial could not be done sore holding off on it for now. 09/16: Patient is doing much better he had significant decrease weight loss 48 hours was started on Aldactone tolerating medication well, hypokalemia been treated Objective - Vital Signs Vital signs: Vital Signs Temp 97.7 F 09/15/20 04:20 Pulse 68 09/15/20 04:20 Resp 20 09/15/20 04:20 BP 134/66 09/15/20 04:20 Pulse Ox 95 09/15/20 04:20 Intake & Output 09/14/20 09/15/20 09/15/20 18:59 06:59 18:59 Intake Total 520 Balance 520 Weight 159.6 kg Intake: Oral 520 Other: Voiding Method Toilet Toilet # Voids 1 2 - Exam REVIEW OF SYSTEMS CONSTITUTIONAL: Will be to obesity with significant shortness of breath. No fever. No chills. EYES: No icterus sclerae, no conjunctivitis. EARS, NOSE, MOUTH, THROAT, and FACE: No sore throat, lymphadenopathy, carotid bruits or deformity. RESPIRATORY: Positive shortness of breath cough wheezes. CARDIOVASCULAR: Positive PND continued orthopnea palpitation significant edema GASTROINTESTINAL: Positive abdominal pain with nausea no vomiting significant diarrhea with distended abdomen and worsening heartburn GENITOURINARY: Large hydrocele and swelling genitalia with decrease urine output. INTEGUMENT/BREAST: Significant arthritis with worsening anasarca and edema of the lower extremity. HEMATOLOGIC/LYMPHATIC: Negative for bleed or purpura. MUSCULOSKELTAL: Negative for Myalgia or arthralgia. NEURLOGICAL: No LOC, Sz or syncope, blurred vision dizziness or abnormality. BEHAVIORAL/PSYCH: Negative. ENDOCRINE: Elevated blood sugars. PHYSICAL EXAMINATION General Appearance: Alert, cooperative, morbid obesity with significant shortness of breath mild respiratory distress. Patient is sitting in chair. 80-year-old male. Neck HEENT: Supple, no lymphadenopathy, no thyroid enlargement, no carotid bruits. Lungs: Decreased breath sound mostly in the right side with significant crackles in the bases positive mild inspiratory expiratory wheezes Chest Wall: Decrease expansion with deep inspiration especially in the right side no tenderness and no deformity was found on exam, no costochondral pain or discomfort. Heart: Irregular rate and rhythm, S1, S2 positive S3 positive systolic murmur with JVD. Back: Symmetric, no curvature, ROM normal, no CVA tenderness. Abdomen: Morbidly obese, distended with abdominal wall edema. No tenderness. Extremities: Significant discoloration worsening from the knee down with 2+ edema decreased pulse bilaterally. Significant arthritis of both knees. Skin: Skin color, texture, tugor normal, no rashes or lesions. Neurologic: Alert oriented x3 cranial nerves II through XII intact, no motor deficit, no abnormal balance or gait. - Labs CBC & Chem 7: 09/12/20 15:01 09/15/20 04:46 Labs: Abnormal Lab Results - Last 24 Hours (Table) 09/12/20 09/14/20 09/14/20 Range/Units 15:01 11:53 16:48 Potassium (3.5-5.1) mmol/L Carbon Dioxide (22-30) mmol/L BUN (9-20) mg/dL POC Glucose (mg/dL) 129 H 164 H (75-99) mg/dL Hemoglobin A1c 8.0 H (4.0-6.0) % Calcium (8.4-10.2) mg/dL 09/14/20 09/15/20 Range/Units 22:01 04:46 Potassium 3.3 L (3.5-5.1) mmol/L Carbon Dioxide 32 H (22-30) mmol/L BUN 31 H (9-20) mg/dL POC Glucose (mg/dL) 259 H (75-99) mg/dL Hemoglobin A1c (4.0-6.0) % Calcium 8.3 L (8.4-10.2) mg/dL Microbiology - Last 24 Hours (Table) 09/12/20 17:48 Blood Culture - Preliminary Blood No Growth after 48 hours Assessment and Plan Plan: 1 severe dyspnea and shortness of breath: Combination of diastolic congestive heart failure, A. fib with RVR, COPD. patient significantly better on current management and treatment. 2 severe anasarca. Continue furosemide 40 mg IV every 8 hours. With switch to oral Lasix by tomorrow. 3 acute on chronic diastolic heart failure with possible pleural effusion. Continue IV diuretics, cardiology consult appreciated, echocardiogram as above. No significant change an echo cardiology are still doing more adjustment of medication. 4 bilateral worsening right-sided infiltrating. Patient received IV antibiotics in the emergency center. Continue antibiotics will keep treating patient for gram-negative pneumonia even as an outpatient when his discharge home. 5 severe abdominal pain with questionable of incarceration most likely for internal hernia patient be going for CT of the abdomen and the chest try to exclude any possibility for rupture of the diaphragmatic and herniation going through the abdominal all the way through the diaphragmatic to the chest area. 6 type 2 diabetes uncontrolled with hyperglycemia secondary to illness and steroids: Continue patient on Levemir along with Novolin 70/30 had episode of hypoglycemia this morning with switch his 7030-40 units in the morning and 30 at night as for the Levemir remain on the same dose when his discharge home will be elicited more aggressive insulin management knowing patient might be going to hypoglycemia at home except his intake is not control like to have in the hospital. 7 recurrent cellulitis of lower extremity: Patient is doing slightly but better with no antibiotic we will continue to topical product 8 paroxysmal atrial fibrillation. Continue Coreg and eliquis. Pulse rate is well-controlled. 9 hyperlipidemia: Patient is on Lipitor 10 mg daily. 10 hypertension. Continue Coreg 6.5 mg twice daily, hydralazine 50 mg 3 times daily, amlodipine 10 mg daily, losartan 50 mg twice daily. 11 CAD post PCI and stent placement. Continue Imdur 30 mg twice daily. Cardiology consult. 12 recurrent depression remain on Xanax along with duloxetine the trazodone and Zoloft. 13 BPH: Remain on finasteride with no urinary retention at this point. 14 moderate size hydrocele: No need for Fierro catheter at this point hopefully with treatment of anasarca might help to reduce the swelling. 15 ventral hernia, rectal fistula ruled out. Consult with Dr. Small appreciated 16 GI prophylaxis: Patient be on pantoprazole 40 mg twice a day. Patient Condition at Discharge: Stable Plan - Discharge Summary Discharge Rx Participant: Yes New Discharge Prescriptions: New Spironolactone [Aldactone] 25 mg PO DAILY #30 tab Loratadine [Claritin] 10 mg PO DAILY PRN tab PRN Reason: Allergy Symptoms Pantoprazole [Protonix] 40 mg PO BID #60 tablet.dr Continue Atorvastatin [Lipitor] 10 mg PO HS Finasteride [Proscar] 5 mg PO DAILY DULoxetine HCL [Cymbalta] 30 mg PO DAILY Isosorbide Mononitrate ER [Imdur] 30 mg PO BID amLODIPine [Norvasc] 10 mg PO DAILY Sertraline HCl [Zoloft] 200 mg PO HS Insulin Degludec [Tresiba Flextouch U-100] 40 units SQ HS hydrALAZINE HCL [Apresoline] 50 mg PO TID #180 tab Brinzolamide/Brimonidine Tart [Simbrinza 1%-0.2% Eye Drops] 1 drop RIGHT EYE TID Apixaban [Eliquis] 5 mg PO BID ALPRAZolam [Xanax] 0.25 mg PO Q8H PRN PRN Reason: Anxiety Potassium Chloride ER [K-Dur 10] 10 meq PO DAILY Docusate [Colace] 100 mg PO BID Carvedilol [Coreg] 6.25 mg PO BID Ferrous Sulfate [Iron (65 MG Elemental)] 325 mg PO DAILY Aspirin EC [Ecotrin Low Dose] 81 mg PO DAILY Losartan [Cozaar] 50 mg PO BID traZODone HCL 50 mg PO HS Albuterol Sulfate [Proair Hfa] 1 - 2 puff INHALATION RT-QID PRN PRN Reason: Shortness Of Breath Changed Furosemide [Lasix] 40 mg PO BID #0 Insuln Asp Prt/Insulin Aspart [NovoLOG MIX 70-30 VIAL] 30 unit SQ BID #0 Discharge Medication List Atorvastatin [Lipitor] 10 mg PO HS 05/05/16 [History] Finasteride [Proscar] 5 mg PO DAILY 05/05/16 [History] DULoxetine HCL [Cymbalta] 30 mg PO DAILY 06/03/18 [History] Isosorbide Mononitrate ER [Imdur] 30 mg PO BID 06/03/18 [History] Sertraline HCl [Zoloft] 200 mg PO HS 12/08/18 [History] amLODIPine [Norvasc] 10 mg PO DAILY 12/08/18 [History] Insulin Degludec [Tresiba Flextouch U-100] 40 units SQ HS 01/13/19 [History] hydrALAZINE HCL [Apresoline] 50 mg PO TID #180 tab 01/19/19 [Rx] Apixaban [Eliquis] 5 mg PO BID 01/21/19 [History] Brinzolamide/Brimonidine Tart [Simbrinza 1%-0.2% Eye Drops] 1 drop RIGHT EYE TID 01/21/19 [History] ALPRAZolam [Xanax] 0.25 mg PO Q8H PRN 09/12/20 [History] Albuterol Sulfate [Proair Hfa] 1 - 2 puff INHALATION RT-QID PRN 09/12/20 [History] Aspirin EC [Ecotrin Low Dose] 81 mg PO DAILY 09/12/20 [History] Carvedilol [Coreg] 6.25 mg PO BID 09/12/20 [History] Docusate [Colace] 100 mg PO BID 09/12/20 [History] Ferrous Sulfate [Iron (65 MG Elemental)] 325 mg PO DAILY 09/12/20 [History] Losartan [Cozaar] 50 mg PO BID 09/12/20 [History] Potassium Chloride ER [K-Dur 10] 10 meq PO DAILY 09/12/20 [History] traZODone HCL 50 mg PO HS 09/12/20 [History] Furosemide [Lasix] 40 mg PO BID #0 09/16/20 [Rx] Insuln Asp Prt/Insulin Aspart [NovoLOG MIX 70-30 VIAL] 30 unit SQ BID #0 09/16/20 [Rx] Loratadine [Claritin] 10 mg PO DAILY PRN tab 09/16/20 [Rx] Pantoprazole [Protonix] 40 mg PO BID #60 tablet.dr 09/16/20 [Rx] Spironolactone [Aldactone] 25 mg PO DAILY #30 tab 09/16/20 [Rx] Follow up Appointment(s)/Referral(s): Nima Burch MD [STAFF PHYSICIAN] - 1 Week (Out patient sleep study) Miguel Mcnally MD [STAFF PHYSICIAN] - 1 Week Jason Colon MD [Primary Care Provider] - 1-2 days [facility] Visiting Nurse, [NON-STAFF] - 1-2 Days Discharge Disposition: HOME SELF-CARE
--- NOTE | 2020-09-16 11:54 | P.PN ---
Subjective This is a pleasant 80-year-old male past medical history significant for paroxysmal atrial fibrillation, COPD, coronary artery disease and chronic diastolic heart failure. He follows in the office with Dr. Mcnally. He is seen and examined sitting up in the chair with his daughter at the bedside. He states overall his breathing feels better however when he gets up he still feels dyspneic with exertion. He continues to have significant lower extremity edema. Blood pressure 163/77 heart rate 76 afebrile maintaining oxygen saturation on room air. Laboratory data reviewed, sodium 141, potassium 3.3, creatinine 1.03 and magnesium 2.0. Currently maintained on Lasix 40 mg IV 3 times a day, amlodipine 10 mg daily, Eliquis 5 mg twice a day, aspirin 81 mg daily, atorvastatin 10 mg daily, hydralazine 50 mg 3 times a day, Imdur 30 mg twice a day, losartan 50 mg twice a day, carvedilol 6.25 mg twice a day and daily potassium supplementation. 09/16/2020 He is seen and examined sitting up in the chair. His breathing is stable and he feels like he really wants to go home this morning. He continues to have ongoing lower extremity edema however much of this is chronic. Blood pressure 157/74 heart rate 71 afebrile maintaining oxygen saturation on room air.Laboratory data reviewed, WBC 9.1, hemoglobin 14.9, platelets 157, sodium 139, potassium 3.4 and creatinine 1.06. GENERAL: Well-appearing, well-nourished and in no acute distress. Morbidly obese. NECK: Supple without JVD or thyromegaly. LUNGS: Breath sounds clear to auscultation bilaterally. Respiration equal and unlabored. No wheezes, rales or rhonchi. Diminished bilaterally. HEART: Irregular rate and rhythm with systolic ejection murmur at the left sternal border, no rubs or gallops. S1 and S2 heard. EXTREMITIES: Normal range of motion, significant 2+ bilateral lower extremity pitting edema, bilateral erythema and sloughing. No clubbing or cyanosis. Peripheral pulses intact. ASSESSMENT Acute on chronic diastolic heart failure Chronic persistent atrial fibrillation on long-term anticoagulation History of coronary artery disease Hypertension Dyslipidemia Morbid obesity, BMI 49 PLAN Clinically the patient has improved since admission and would like to go home. Recommend follow-up in the office with Dr. Mcnally upon discharge. Nurse Practitioner note has been reviewed, I agree with a documented findings and plan of care. Patient was seen and examined. Objective - Vital Signs Vital signs: Vital Signs Temp 97.5 F L 09/16/20 08:23 Pulse 71 09/16/20 09:00 Resp 16 09/16/20 09:00 BP 157/74 09/16/20 08:23 Pulse Ox 95 09/16/20 08:23 Intake & Output 09/15/20 09/16/20 09/16/20 18:59 06:59 18:59 Intake Total 802 128 300 Output Total 1 426 1 Balance 801 -298 299 Weight 158.1 kg Intake: Oral 802 128 300 Output: Urine 1 425 Stool 1 1 Other: Voiding Method Toilet Toilet Toilet # Voids 2 1 1 - Labs CBC & Chem 7: 09/16/20 05:10 09/16/20 05:10 Labs: Abnormal Lab Results - Last 24 Hours (Table) 09/15/20 09/15/20 09/15/20 Range/Units 12:41 18:02 21:24 RDW (11.5-15.5) % Potassium (3.5-5.1) mmol/L Carbon Dioxide (22-30) mmol/L BUN (9-20) mg/dL Glucose (74-99) mg/dL POC Glucose (mg/dL) 195 H 181 H 57 L (75-99) mg/dL Calcium (8.4-10.2) mg/dL 09/15/20 09/15/20 09/16/20 Range/Units 22:01 23:31 05:10 RDW 16.1 H (11.5-15.5) % Potassium (3.5-5.1) mmol/L Carbon Dioxide (22-30) mmol/L BUN (9-20) mg/dL Glucose (74-99) mg/dL POC Glucose (mg/dL) 100 H 192 H (75-99) mg/dL Calcium (8.4-10.2) mg/dL 09/16/20 09/16/20 Range/Units 05:10 06:51 RDW (11.5-15.5) % Potassium 3.4 L (3.5-5.1) mmol/L Carbon Dioxide 31 H (22-30) mmol/L BUN 30 H (9-20) mg/dL Glucose 153 H (74-99) mg/dL POC Glucose (mg/dL) 136 H (75-99) mg/dL Calcium 8.2 L (8.4-10.2) mg/dL Microbiology - Last 24 Hours (Table) 09/12/20 17:48 Blood Culture - Preliminary Blood No Growth after 72 hours
== END 2020-09-16 11:22 | disposition home or self-care (01) | DRG 291 ==
LOC: EC 14:39 → 3NCARDOBS 17:57 → OBSVTOIN 09-13 08:58
PROVIDERS: ADMIT Internal Medicine Geriatric Medicine; ATTEND Internal Medicine Geriatric Medicine
DX: I11.0 Hypertensive heart disease with heart failure (principal); J15.6 Pneumonia due to other Gram-negative bacteria; Z68.42 Body mass index [BMI] 45.0-49.9, adult; F33.9 Major depressive disorder, recurrent, unspecified; I31.3 Pericardial effusion (noninflammatory); I48.19 Other persistent atrial fibrillation; J44.0 Chronic obstructive pulmonary disease with (acute) lower respiratory infection; K43.6 Other and unspecified ventral hernia with obstruction, without gangrene; N40.0 Benign prostatic hyperplasia without lower urinary tract symptoms; E78.5 Hyperlipidemia, unspecified; F41.0 Panic disorder [episodic paroxysmal anxiety]; F41.1 Generalized anxiety disorder; I25.10 Atherosclerotic heart disease of native coronary artery without angina pectoris; N43.3 Hydrocele, unspecified; E66.01 Morbid (severe) obesity due to excess calories; I50.33 Acute on chronic diastolic (congestive) heart failure; L98.419 Non-pressure chronic ulcer of buttock with unspecified severity; E11.65 Type 2 diabetes mellitus with hyperglycemia; I87.2 Venous insufficiency (chronic) (peripheral); I08.1 Rheumatic disorders of both mitral and tricuspid valves; M19.90 Unspecified osteoarthritis, unspecified site; Z79.01 Long term (current) use of anticoagulants; Z79.02 Long term (current) use of antithrombotics/antiplatelets; Z79.4 Long term (current) use of insulin; Z79.82 Long term (current) use of aspirin; Z79.899 Other long term (current) drug therapy; Z86.73 Personal history of transient ischemic attack (TIA), and cerebral infarction without residual deficits; Z87.442 Personal history of urinary calculi; Z95.5 Presence of coronary angioplasty implant and graft; Z87.01 Personal history of pneumonia (recurrent); Z87.730 Personal history of (corrected) cleft lip and palate; Z90.89 Acquired absence of other organs; Z98.890 Other specified postprocedural states; Z98.42 Cataract extraction status, left eye; Z98.41 Cataract extraction status, right eye; Z82.49 Family history of ischemic heart disease and other diseases of the circulatory system; Z80.9 Family history of malignant neoplasm, unspecified
CPT/HCPCS: 36415; 71046; 76604; 80048; 80053; 83036; 83605; 83735; 83880; 84484; 85025; 85610; 85730; 87040; 93005; 93306; 94640; 96374; 96375; 99285

== ENCOUNTER → 2020-09-28 | Outpatient (CLI) | payer MEDICARE ==
[2020-09-28 11:46] LABS: African American GFR (CKD) 66.7 (60.0-200.0); BUN/Creat Ratio 17.5 Ratio (12.00-20.00); Calcium 8.8 mg/dL (8.7-10.3); Magnesium 1.6 mg/dL (1.5-2.4); Non-African American GFR(CKD) 57.6 (60.0-200.0); Potassium 3.7 mmol/L (3.5-5.5)
== END | disposition home or self-care (01) ==
LOC: LABWHC1 07:36
PROVIDERS: ATTEND Nurse Practitioner Adult Health
DX: I10 Essential (primary) hypertension (principal)
CPT/HCPCS: 36415; 80048; 83735

== ENCOUNTER 2020-10-11 11:11 | Emergency (ER) | payer MEDICARE ==
[2020-10-11 11:15] VITALS: RESP 18; TEMP 98.2
[2020-10-11 12:04] LABS: Anisocytosis Slight; Basophils # (A) 0.1 k/uL (0-0.2); Basophils % (A) 1 %; Eosinophils # (A) 0.3 k/uL (0-0.7); Eosinophils % (A) 4 %; HCT 44.8 % (39.0-53.0); Lymphocytes # (A) 0.8 k/uL (1.0-4.8); Lymphocytes % (A) 9 %; MCH 29.7 pg (25.0-35.0); MCHC 33.4 g/dL (31.0-37.0); MCV 88.7 fL (80.0-100.0); Mean Platelet Volume 8.2; Monocytes # (A) 0.5 k/uL (0-1.0); Monocytes % (A) 6 %; Neutrophils # (A) 7.1 k/uL (1.3-7.7); Neutrophils % (A) 80 %; Platelet Count 164 k/uL (150-450); RBC 5.05 m/uL (4.30-5.90); RDW 16.3 % (11.5-15.5); WBC 8.9 k/uL (3.8-10.6)
[2020-10-11 12:14] LABS: INR 1.1 (<1.2)
[2020-10-11 12:15] LABS: Partial Thromboplastin Time 27.4 sec (22.0-30.0)
[2020-10-11 12:21] LABS: ALT 17 U/L (4-49); AST 21 U/L (17-59); African American GFR (CKD) >90 (>60 ml/min/1.73 sqM); Albumin 3.8 g/dL (3.5-5.0); Alkaline Phosphatase 111 U/L (38-126); Anion Gap 6 mmol/L; Blood Urea Nitrogen 19 mg/dL (9-20); Calcium 8.4 mg/dL (8.4-10.2); Carbon Dioxide 29 mmol/L (22-30); Chloride 103 mmol/L (98-107); Glucose 201 mg/dL (74-99); Magnesium 1.7 mg/dL (1.6-2.3); Non-African American GFR(CKD) 81 (>60 ml/min/1.73 sqM); Potassium 3.8 mmol/L (3.5-5.1); Sodium 138 mmol/L (137-145); Total Bilirubin 0.7 mg/dL (0.2-1.3); Total Protein 6.8 g/dL (6.3-8.2)
--- NOTE | 2020-10-11 13:09 | ED ---
Male Urogenital HPI - General Chief complaint: Urogenital Stated complaint: male , Bleeding Time Seen by Provider: 10/11/20 11:33 Source: patient, RN notes reviewed Mode of arrival: ambulatory Limitations: no limitations - History of Present Illness Initial comments: this is a 80-year-old male presents emergency Department chief complaint of bleeding from his urethra. Patient states that he just had bleeding without urination initially. He states that there is blood very states she's had this happen the past in which she had cauterization. Denies any trauma. Denies any difficulty urinating. Patient does take Eliquis. He has no complaints of back pain, flank pain, abdominal pain. Patient's had no prior transfusions a history of anemia patient offers no other complaints. - Related Data Home Medications Medication Instructions Recorded Confirmed Finasteride [Proscar] 5 mg PO DAILY 05/05/16 10/11/20 DULoxetine HCL [Cymbalta] 30 mg PO DAILY 06/03/18 10/11/20 Isosorbide Mononitrate ER [Imdur] 30 mg PO BID 06/03/18 10/11/20 Sertraline HCl [Zoloft] 150 mg PO HS 12/08/18 10/11/20 amLODIPine [Norvasc] 10 mg PO HS 12/08/18 10/11/20 Insulin Degludec [Tresiba 40 units SQ HS 01/13/19 10/11/20 Flextouch U-100] Brinzolamide/Brimonidine Tart 1 drop RIGHT EYE TID 01/21/19 10/11/20 [Simbrinza 1%-0.2% Eye Drops] ALPRAZolam [Xanax] 0.25 mg PO DAILY PRN 09/12/20 10/11/20 Aspirin EC [Ecotrin Low Dose] 81 mg PO DAILY 09/12/20 10/11/20 Carvedilol [Coreg] 6.25 mg PO BID 09/12/20 10/11/20 Docusate [Colace] 100 mg PO BID 09/12/20 10/11/20 Losartan [Cozaar] 50 mg PO BID 09/12/20 10/11/20 Potassium Chloride ER [K-Dur 10] 10 meq PO DAILY 09/12/20 10/11/20 traZODone HCL 50 mg PO HS 09/12/20 10/11/20 ALPRAZolam [Xanax] 0.25 mg PO BID 10/11/20 10/11/20 Albuterol Sulfate [Proair Hfa] 1 - 2 puff INHALATION RT-Q6H PRN 10/11/20 10/11/20 Apixaban [Eliquis] 2.5 mg PO BID 10/11/20 10/11/20 Atorvastatin Calcium [Lipitor] 40 mg PO DAILY 10/11/20 10/11/20 Diclofenac Sodium [Voltaren Gel] 2 gram TOPICAL HS 10/11/20 10/11/20 Furosemide [Lasix] 40 mg PO BID-W/MEALS 10/11/20 10/11/20 Insuln Asp Prt/Insulin Aspart 30 unit SQ AC-BID 10/11/20 10/11/20 [NovoLOG MIX 70-30 VIAL] Latanoprost [Xalatan 0.005%] 1 drop BOTH EYES HS 10/11/20 10/11/20 Loratadine [Claritin] 10 mg PO DAILY 10/11/20 10/11/20 Refresh Optive Advanced 1 drop BOTH EYES BID PRN 10/11/20 10/11/20 Previous Rx's Medication Instructions Recorded hydrALAZINE HCL [Apresoline] 50 mg PO TID #180 tab 01/19/19 Pantoprazole [Protonix] 40 mg PO BID #60 tablet. 09/16/20 Spironolactone [Aldactone] 25 mg PO DAILY #30 tab 09/16/20 Allergies Allergy/AdvReac Type Severity Reaction Status Date / Time No Known Allergies Allergy Verified 10/11/20 12:49 Review of Systems ROS Statement: Those systems with pertinent positive or pertinent negative responses have been documented in the HPI. ROS Other: All systems not noted in ROS Statement are negative. Past Medical History Past Medical History: Atrial Fibrillation, Heart Failure, Diabetes Mellitus, Hyperlipidemia, Hypertension, Osteoarthritis (OA) Additional Past Medical History / Comment(s): edema jeffrey lower legs that comes and goes,hx kidney stones, hx migraines, Pneumonia 2018, cleft palate - repair History of Any Multi-Drug Resistant Organisms: None Reported Past Surgical History: Heart Catheterization With Stent, Orthopedic Surgery, Tonsillectomy Additional Past Surgical History / Comment(s): left shoulder surgery, surgery jeffrey knees, rt hand surgery for fx fingers from work injury, left hand surgery fx finger from sports injury, jeffrey cataracts, Past Anesthesia/Blood Transfusion Reactions: No Reported Reaction Date of Last Stent Placement:: 2018 Past Psychological History: Anxiety, Panic Disorder Smoking Status: Never smoker Past Alcohol Use History: None Reported Past Drug Use History: None Reported - Past Family History Father Family Medical History: No Reported History Additional Family Medical History / Comment(s): Father was a heavy smoker. He of a [place] at the age of 42yrs. Mother Family Medical History: Cancer Additional Family Medical History / Comment(s): . General Exam Limitations: no limitations General appearance: alert, in no apparent distress Head exam: Present: atraumatic, normocephalic, normal inspection Eye exam: Present: normal appearance, PERRL, EOMI. Absent: scleral icterus, conjunctival injection, periorbital swelling Respiratory exam: Present: normal lung sounds bilaterally. Absent: respiratory distress, wheezes, rales, rhonchi, stridor Cardiovascular Exam: Present: regular rate, normal rhythm, normal heart sounds. Absent: systolic murmur, diastolic murmur, rubs, gallop, clicks GI/Abdominal exam: Present: soft, normal bowel sounds. Absent: distended, tenderness, guarding, rebound, rigid Back exam: Absent: CVA tenderness (R), CVA tenderness (L) Course Vital Signs 10/11/20 11:13 Temperature 98.2 F Pulse Rate 77 Respiratory 18 Rate Blood Pressure 152/76 O2 Sat by Pulse 95 Oximetry Medical Decision Making - Medical Decision Making 72-year-old male presented for urethral Bleeding. Patient and no recurrence. Urinalysis and hemoglobin unremarkable. Patient we discharged stable condition. Patient advised to follow-up with his his urologist Dr. Galindo return parameters were discussed. - Lab Data Result diagrams: 10/11/20 11:57 10/11/20 11:57 Lab Results 10/11/20 10/11/20 10/11/20 Range/Units 11:46 11:57 11:57 WBC 8.9 (3.8-10.6) k/uL RBC 5.05 (4.30-5.90) m/uL Hgb 15.0 (13.0-17.5) gm/dL Hct 44.8 (39.0-53.0) % MCV 88.7 (80.0-100.0) fL MCH 29.7 (25.0-35.0) pg MCHC 33.4 (31.0-37.0) g/dL RDW 16.3 H (11.5-15.5) % Plt Count 164 (150-450) k/uL MPV 8.2 Neutrophils % 80 % Lymphocytes % 9 % Monocytes % 6 % Eosinophils % 4 % Basophils % 1 % Neutrophils # 7.1 (1.3-7.7) k/uL Lymphocytes # 0.8 L (1.0-4.8) k/uL Monocytes # 0.5 (0-1.0) k/uL Eosinophils # 0.3 (0-0.7) k/uL Basophils # 0.1 (0-0.2) k/uL Anisocytosis Slight PT 11.0 (9.0-12.0) sec INR 1.1 (<1.2) APTT 27.4 (22.0-30.0) sec Sodium (137-145) mmol/L Potassium (3.5-5.1) mmol/L Chloride (98-107) mmol/L Carbon Dioxide (22-30) mmol/L Anion Gap mmol/L BUN (9-20) mg/dL Creatinine (0.66-1.25) mg/dL Est GFR (CKD-EPI)AfAm (>60 ml/min/1.73 sqM) Est GFR (CKD-EPI)NonAf (>60 ml/min/1.73 sqM) Glucose (74-99) mg/dL Calcium (8.4-10.2) mg/dL Magnesium (1.6-2.3) mg/dL Total Bilirubin (0.2-1.3) mg/dL AST (17-59) U/L ALT (4-49) U/L Alkaline Phosphatase (38-126) U/L Total Protein (6.3-8.2) g/dL Albumin (3.5-5.0) g/dL Urine Color Yellow Urine Appearance Clear (Clear) Urine pH 6.0 (5.0-8.0) Ur Specific [place] 1.011 (1.001-1.035) Urine Protein Negative (Negative) Urine Glucose (UA) Negative (Negative) Urine Ketones Negative (Negative) Urine Blood Negative (Negative) Urine Nitrite Negative (Negative) Urine Bilirubin Negative (Negative) Urine Urobilinogen <2.0 (<2.0) mg/dL Ur Leukocyte Esterase Negative (Negative) 10/11/20 Range/Units 11:57 WBC (3.8-10.6) k/uL RBC (4.30-5.90) m/uL Hgb (13.0-17.5) gm/dL Hct (39.0-53.0) % MCV (80.0-100.0) fL MCH (25.0-35.0) pg MCHC (31.0-37.0) g/dL RDW (11.5-15.5) % Plt Count (150-450) k/uL MPV Neutrophils % % Lymphocytes % % Monocytes % % Eosinophils % % Basophils % % Neutrophils # (1.3-7.7) k/uL Lymphocytes # (1.0-4.8) k/uL Monocytes # (0-1.0) k/uL Eosinophils # (0-0.7) k/uL Basophils # (0-0.2) k/uL Anisocytosis PT (9.0-12.0) sec INR (<1.2) APTT (22.0-30.0) sec Sodium 138 (137-145) mmol/L Potassium 3.8 (3.5-5.1) mmol/L Chloride 103 (98-107) mmol/L Carbon Dioxide 29 (22-30) mmol/L Anion Gap 6 mmol/L BUN 19 (9-20) mg/dL Creatinine 0.91 (0.66-1.25) mg/dL Est GFR (CKD-EPI)AfAm >90 (>60 ml/min/1.73 sqM) Est GFR (CKD-EPI)NonAf 81 (>60 ml/min/1.73 sqM) Glucose 201 H (74-99) mg/dL Calcium 8.4 (8.4-10.2) mg/dL Magnesium 1.7 (1.6-2.3) mg/dL Total Bilirubin 0.7 (0.2-1.3) mg/dL AST 21 (17-59) U/L ALT 17 (4-49) U/L Alkaline Phosphatase 111 (38-126) U/L Total Protein 6.8 (6.3-8.2) g/dL Albumin 3.8 (3.5-5.0) g/dL Urine Color Urine Appearance (Clear) Urine pH (5.0-8.0) Ur Specific [place] (1.001-1.035) Urine Protein (Negative) Urine Glucose (UA) (Negative) Urine Ketones (Negative) Urine Blood (Negative) Urine Nitrite (Negative) Urine Bilirubin (Negative) Urine Urobilinogen (<2.0) mg/dL Ur Leukocyte Esterase (Negative) Disposition Clinical Impression: Urethral bleeding Disposition: HOME SELF-CARE Condition: Stable Instructions (If sedation given, give patient instructions): Hematuria (ED) Additional Instructions: Please return to the Emergency Department if symptoms worsen or any other concerns. Is patient prescribed a controlled substance at d/c from ED?: No Referrals: Jason Colon MD [Primary Care Provider] - 1-2 days Bunny Alvarenga MD [STAFF PHYSICIAN] - 1-2 days Time of Disposition: 14:55
[2020-10-11 14:31] LABS: Appearance,Urine Clear (Clear); Bilirubin,Urine Negative (Negative); Blood,Urine Negative (Negative); Color,Urine Yellow; Glucose,Urine (UA) Negative (Negative); Ketones,Urine Negative (Negative); Leukocyte Esterase,Urine Negative (Negative); Nitrite,Urine Negative (Negative); Protein,Urine Negative (Negative); Specific Gravity,Urine 1.011 (1.001-1.035); Urobilinogen,Urine <2.0 mg/dL (<2.0)
[2020-10-11 15:14] VITALS: BP 165/77; PULSE 65
== END 2020-10-11 15:14 | disposition home or self-care (01) ==
LOC: EC 11:11
DX: N36.8 Other specified disorders of urethra (principal); I11.0 Hypertensive heart disease with heart failure; E11.9 Type 2 diabetes mellitus without complications; I50.9 Heart failure, unspecified; M19.90 Unspecified osteoarthritis, unspecified site; I48.91 Unspecified atrial fibrillation; E78.5 Hyperlipidemia, unspecified; G43.909 Migraine, unspecified, not intractable, without status migrainosus; F41.9 Anxiety disorder, unspecified; F41.0 Panic disorder [episodic paroxysmal anxiety]; Z79.899 Other long term (current) drug therapy; Z79.4 Long term (current) use of insulin; Z79.82 Long term (current) use of aspirin; Z79.01 Long term (current) use of anticoagulants; Z79.1 Long term (current) use of non-steroidal anti-inflammatories (NSAID); Z87.442 Personal history of urinary calculi
CPT/HCPCS: 36415; 80053; 81003; 83735; 85025; 85610; 85730; 99283

== ENCOUNTER → 2021-01-14 | Outpatient (CLI) | payer MEDICARE ==
[2021-01-14 22:47] LABS: African American GFR (CKD) 74.1 (60.0-200.0); Anion Gap 4.6 mmol/L (4.00-12.00); Calcium 8.3 mg/dL (8.7-10.3); Carbon Dioxide 31.4 mmol/L (21.6-31.8); Potassium 3.8 mmol/L (3.5-5.5)
== END | disposition home or self-care (01) ==
LOC: LABWHC1 10:52
PROVIDERS: ATTEND Nurse Practitioner Adult Health
DX: I10 Essential (primary) hypertension (principal)
CPT/HCPCS: 36415; 80048; 83735